=== PATIENT | male | born 1935 | race Caucasian/White ===

== ENCOUNTER → 2017-05-27 | Outpatient (CLI) | payer MEDICARE ==
--- NOTE | 2017-05-27 14:05 | CT ---
EXAMINATION TYPE: CT brain wo con DATE OF EXAM: 05/27/2017 COMPARISON: 10/18/2015 HISTORY: Epilepsy. CT DLP: [address] of the brain was performed. Motion limits portions of the bifrontal evaluation. The ventricles, basal cisterns and sulci overlying the cerebral convexities demonstrate mild enlargem ent. There is no evidence for intracranial hemorrhage or sulcal effacement. There is decreased attenuation about the periventricular white matter and deep white matter of both c erebral hemispheres, compatible with chronic small vessel ischemia. Differential diagnosis does inclu de demyelination. No mass effects are seen.No midline shift. Osseous calvarium is intact. If symptoms persist consider MRI. IMPRESSION: 1. Age related atrophic and chronic small vessel ischemic change without acute intracranial process s een at this time.
== END | disposition home or self-care (01) ==
LOC: RADCTMAIN 13:34
PROVIDERS: ATTEND Psychiatry & Neurology Neurology
DX: G31.1 Senile degeneration of brain, not elsewhere classified (principal); I67.82 Cerebral ischemia; G40.309 Generalized idiopathic epilepsy and epileptic syndromes, not intractable, without status epilepticus
CPT/HCPCS: 70450

== ENCOUNTER → 2017-08-07 | Outpatient (CLI) | payer MEDICARE | END | disposition home or self-care (01) | LOC: LABWHC1 08:25 | PROVIDERS: ATTEND Psychiatry & Neurology Neurology | DX: G40.309 Generalized idiopathic epilepsy and epileptic syndromes, not intractable, without status epilepticus (principal) | CPT/HCPCS: 36415; 80177; 80184; 80185 ==

== ENCOUNTER 2018-05-20 09:36 | Inpatient (IN) | payer MEDICARE ==
--- NOTE | 2018-05-20 10:42 | ED ---
Male Urogenital HPI <Louis Saavedra - Last Filed: 05/20/18 15:45> - General Source: patient Mode of arrival: wheelchair Limitations: language barrier, physical limitation <Janet Haile - Last Filed: 05/20/18 22:18> - General Chief complaint: Urogenital Stated complaint: blood in urine Time Seen by Provider: 05/20/18 10:02 - History of Present Illness Initial comments: 82-year-old male with past medical history of dementia, developmental delays, hearing disorder, seizure disorder presenting today from assisted living residence [facility] with physical therapy assistant instructor for hematuria. Violin Tutor noticed dark red blood in urine with clots and brought patient for evaluation, pt is hard of hearing and has dementia so care takers say that getting information from him is very limits. He did state that he was no in pain. Unable to obtain further history, caretakers deny any other complaints or noticing other abnormalities until this morning. Upon arrival pt VS are stable, no signs of acute distress. Pt in wheel chair, pt baseline ambulation is not able to weight bear. (Janet Haile) - Related Data Home Medications Medication Instructions Recorded Confirmed Acetaminophen Tab [Tylenol] 500 mg PO TID@0800,1400,2000 07/23/14 05/20/18 Cholecalciferol [Vitamin D3] 1,000 unit PO DAILY@0800 07/23/14 05/20/18 Ferrous Sulfate [Iron (65 MG 325 mg PO DAILY@0800 07/23/14 05/20/18 Elemental)] Furosemide [Lasix] 20 mg PO DAILY@0800 07/23/14 05/20/18 Cyanocobalamin [Vitamin B-12] 250 mcg PO DAILY@0800 10/18/15 05/20/18 Hyoscyamine Sulfate [Levsin-Sl] 0.125 mg PO DAILY@0800 10/18/15 05/20/18 Levothyroxine Sodium [Synthroid] 50 mcg PO DAILY@0800 10/18/15 05/20/18 Acetaminophen [Tylenol] 500 - 1,000 mg PO Q6H PRN 05/01/17 05/20/18 Albuterol Inhaler [Ventolin Hfa 2 puff INHALATION Q4-6H PRN 05/01/17 05/20/18 Inhaler] Amiodarone HCl [Pacerone] 200 mg PO DAILY@0800 05/01/17 05/20/18 Artificial Tears-Hypromellose 1 drops BOTH EYES TID PRN 05/01/17 05/20/18 [Artificial Tear Drops] Docusate [Colace] 100 mg PO DAILY@0800 05/01/17 05/20/18 Donepezil HCl [Aricept] 5 mg PO DAILY@0800 05/01/17 05/20/18 Famotidine 40 mg PO DAILY@0805/01/17 05/20/18 PHENobarbital [Luminal] 48.6 mg PO DAILY@0805/01/17 05/20/18 Potassium Chloride ER [K-Dur 10] 10 mg PO DAILY@0805/01/17 05/20/18 clonazePAM [KlonoPIN] 0.5 mg PO HS@199905/01/17 05/20/18 Atorvastatin [Lipitor] 40 mg PO HS 05/20/18 05/20/18 Loperamide [Imodium] 2 mg PO QID PRN 05/20/18 05/20/18 Magnesium Hydroxide [Milk of 2,400 mg PO BID PRN 05/20/18 05/20/18 Magnesia] Multivitamins, Thera [Multivitamin 1 tab PO DAILY 05/20/18 05/20/18 (formulary)] Oyster Calcium 1 tab PO DAILY 05/20/18 05/20/18 Phenytoin Sodium Extended 100 mg PO BID 05/20/18 05/20/18 [Dilantin] Warfarin Sodium [Coumadin] 4 mg PO DAILY 05/20/18 05/20/18 diphenhydrAMINE [Benadryl] 25 mg PO DAILY PRN 05/20/18 05/20/18 guaiFENesin [Mucinex] 600 mg PO BID PRN 05/20/18 05/20/18 guaiFENesin-DM 100-10MG/5ML 10 - 20 ml PO Q4H PRN 05/20/18 05/20/18 [Robitussin DM] levETIRAcetam [Keppra] 1,000 mg PO DAILY 05/20/18 05/20/18 levETIRAcetam [Keppra] 750 mg PO HS 05/20/18 05/20/18 Allergies Allergy/AdvReac Type Severity Reaction Status Date / Time Penicillins Allergy Unknown Verified 05/20/18 10:10 Review of Systems ROS Other: All systems not noted in ROS Statement are negative. <Louis Saavedra - Last Filed: 05/20/18 15:45> ROS Other: All systems not noted in ROS Statement are negative. Limitations: ROS unobtainable due to patients medical condition (pt is not able to hear/developmental delay/dementia) Genitourinary: Reports: hematuria <Janet Haile - Last Filed: 05/20/18 22:18> ROS Statement: Those systems with pertinent positive or pertinent negative responses have been documented in the HPI. Past Medical History Past Medical History: Atrial Fibrillation, Dementia, GERD/Reflux, Hyperlipidemia , Hypertension, Pneumonia, Seizure Disorder, Thyroid Disorder Additional Past Medical History / Comment(s): Hematoma on top of head, NISQUALLY, wears 2 hearing aides. C5-C6 and T12 fractures. Last seizure was 2 years ago. Hypothyroid. Falls. History of Any Multi-Drug Resistant Organisms: None Reported Past Surgical History: Unable to Obtain, Orthopedic Surgery Additional Past Surgical History / Comment(s): Surgery on BL arms. Right knee surgery. Past Psychological History: Unable to Obtain Smoking Status: Never smoker Past Alcohol Use History: None Reported Past Drug Use History: None Reported <Janet Haile - Last Filed: 05/20/18 22:18> General Exam <Louis Saavedra - Last Filed: 05/20/18 15:45> Limitations: language barrier, physical limitation <Janet Haile - Last Filed: 05/20/18 22:18> - General Exam Comments Initial Comments: General: The patient appears tired, pallor. AAOx2. Hard of hearing, verbal at times-family states baseline. Eye: Pupils are equal, round and reactive to light, extra-ocular movements are intact. No nystagmus. There is normal conjunctiva bilaterally. No signs of icterus. Ears, nose, mouth and throat: There are moist mucous membranes and no oral lesions. Neck: The neck is supple, there is no tenderness or JVD. Cardiovascular: There is a irregular rate and rhythm. No murmur, rub or gallop is appreciated. Respiratory: Lungs are clear to auscultation, respirations are non-labored, breath sounds are equal. No wheezes, stridor, rales, or rhonchi. Gastrointestinal: Soft, non-distended, abdomen without masses or organomegaly noted. Pt doesn't grimace in pain with palpation of the abdomen. There is no rebound or guarding present. No CVA tenderness. Bowel sounds are unremarkable. Musculoskeletal: Normal ROM, no tenderness. Strength 5/5 of UE, pt can grossly move lower extremities. Sensation intact. Pulses equal bilaterally 2+. Neurological: A&O x 3. CN II-XII intact, There are no obvious motor or sensory deficits. Coordination appears grossly intact. Speech is normal loud, pt doesnt consistently speak. Skin: Skin is warm and dry and no rashes or lesions are noted. (Janet Haile) Course <Louis Saavedra - Last Filed: 05/20/18 15:45> <Janet Haile - Last Filed: 05/20/18 22:18> Vital Signs 05/20/18 05/20/18 05/20/18 09:43 10:54 12:00 Temperature 97.5 F L Pulse Rate 89 110 H 112 H Respiratory 20 18 18 Rate Blood Pressure 109/47 134/83 139/91 O2 Sat by Pulse 97 96 98 Oximetry 05/20/18 05/20/18 05/20/18 14:00 16:59 18:20 Temperature 98.5 F Pulse Rate 105 H 101 H 104 H Respiratory 18 18 18 Rate Blood Pressure 105/86 102/85 O2 Sat by Pulse 92 L 99 97 Oximetry 05/20/18 05/20/18 05/20/18 18:23 18:33 19:03 Temperature 98.8 F 98.8 F 99.3 F Pulse Rate 100 101 H 102 H Respiratory 18 18 18 Rate Blood Pressure 116/69 109/87 119/67 O2 Sat by Pulse 94 L Oximetry - Reevaluation(s) Reevaluation #1: 05/20/18 15:45 Patient reevaluated by myself, Dr. Saavedra. Patient resting comfortably in bed. Patient is a poor historian. Case was discussed in detail with Dr. Kathleen from neurology who states patient can be admitted medically for possible urinary infection and will consult. Case also discussed in detail with Dr. Carrington, who will admit for Dr. Maxwell. He recommends vitamin K 10 units IV piggyback as well as 2 units fresh frozen plasma. (Louis Saavedra) Reevaluation #2: EKG obtained, revealing atrial fibrillation HR varying from 118-100, bolus pt, hold cardizem at this time per Dr. Louis Saavedra 05/20/18 (Janet Haile) Medical Decision Making - Lab Data Result diagrams: 05/20/18 11:56 05/20/18 11:56 <Louis Saavedra - Last Filed: 05/20/18 15:45> - Lab Data Result diagrams: 05/20/18 19:18 05/20/18 11:56 <Janet Haile - Last Filed: 05/20/18 22:18> - Medical Decision Making 82-year-old male with past medical history of atrial fibrillation on warfarin. Upon review of laboratory findings, white blood cell 20, hemoglobin 12.3, patient has elevated PT, PTT and INR at 5.0. Patient does have history of atrial fibrillation, EKG was obtained revealing atrial fibrillation with ventricular rate of 105 bpm. Patient is hemodynamically stable, EKG findings were discussed with Dr. Saavedra at this time will hold Cardizem and monitor heart rate closely, patient is placed on telemetry. Patient be given bolus of fluids. UA revealed gross hematuria. Checks x-ray revealed findings concerning for possible pulmonary venous hypertension/interstitial edema. CT of the abdomen and pelvis revealed a heterogeneous multilobulated large intratesticular mass that extends from enlarged urinary bladder diverticulum into the need of urinary bladder, this is concerning for neoplasm. Dr. Kathleen from urology was consult at who recommended medicine admission for UTI given WBC count, coagulopathies and hematuria with him on consult, pt started on levaquin for UTI, PCN allergy within unknown reaction. Dr. Carrington spoke with Dr. Saavedra (who is aware of case and evalated pt face to face) Zeb accepted admission for patient's primary care provider, he requested patient be given 10 mg of vitamin K, and 2 units of fresh frozen plasma. Pt remains hemodynamically stable. He does deny pain upon reevaluation when writing notes. He does not consistently respond to written notes. Dilantin levels drawn. At this time feel patient's heart rate is elevated from atrial fibrillation, patient is afebrile, respirations within normal limits-pt does not meet sepsis criteria at this time. I discussed all findings with patient's sister at length, they denied questions at this time and agreeable with admission. Family expressed that pt is DNR. Pt transferred to floor, hemodynamically stable. (Janet Haile) - Lab Data Lab Results 05/20/18 05/20/18 05/20/18 Range/Units 11:54 11:56 11:56 WBC 20.0 H (3.8-10.6) k/uL RBC 3.89 L (4.30-5.90) m/uL Hgb 12.3 L (13.0-17.5) gm/dL Hct 39.2 (39.0-53.0) % MCV 100.7 H (80.0-100.0) fL MCH 31.7 (25.0-35.0) pg MCHC 31.5 (31.0-37.0) g/dL RDW 13.5 (11.5-15.5) % Plt Count 342 (150-450) k/uL Neutrophils % 84 % Lymphocytes % 8 % Monocytes % 6 % Eosinophils % 1 % Basophils % 0 % Neutrophils # 16.8 H (1.3-7.7) k/uL Lymphocytes # 1.6 (1.0-4.8) k/uL Monocytes # 1.2 H (0-1.0) k/uL Eosinophils # 0.1 (0-0.7) k/uL Basophils # 0.0 (0-0.2) k/uL Macrocytosis Slight PT (9.0-12.0) sec INR (<1.2) APTT (22.0-30.0) sec Sodium 142 (137-145) mmol/L Potassium 4.4 (3.5-5.1) mmol/L Chloride 106 (98-107) mmol/L Carbon Dioxide 24 (22-30) mmol/L Anion Gap 12 mmol/L BUN 13 (9-20) mg/dL Creatinine 0.72 (0.66-1.25) mg/dL Est GFR (CKD-EPI)AfAm >90 (>60 ml/min/1.73 sqM) Est GFR (CKD-EPI)NonAf 87 (>60 ml/min/1.73 sqM) Glucose 131 H (74-99) mg/dL Lactic Ac Sepsis Rflx Plasma Lactic Acid Bartolome (0.7-2.0) mmol/L Calcium 9.0 (8.4-10.2) mg/dL Total Bilirubin 0.4 (0.2-1.3) mg/dL AST 36 (17-59) U/L ALT 30 (21-72) U/L Alkaline Phosphatase 74 (38-126) U/L Total Protein 7.3 (6.3-8.2) g/dL Albumin 4.2 (3.5-5.0) g/dL Urine Color Urine Appearance (Clear) Urine RBC (0-5) /hpf Urine WBC (0-5) /hpf Phenytoin ug/mL Blood Type O Positive Blood Type Recheck No Antibody Screen NEGATIVE Transfuse Plasma Spec Expiration Date 05/23/2018235305/20/18 05/20/18 05/20/18 Range/Units 11:56 14:42 14:49 WBC (3.8-10.6) k/uL RBC (4.30-5.90) m/uL Hgb (13.0-17.5) gm/dL Hct (39.0-53.0) % MCV (80.0-100.0) fL MCH (25.0-35.0) pg MCHC (31.0-37.0) g/dL RDW (11.5-15.5) % Plt Count (150-450) k/uL Neutrophils % % Lymphocytes % % Monocytes % % Eosinophils % % Basophils % % Neutrophils # (1.3-7.7) k/uL Lymphocytes # (1.0-4.8) k/uL Monocytes # (0-1.0) k/uL Eosinophils # (0-0.7) k/uL Basophils # (0-0.2) k/uL Macrocytosis PT 45.0 H (9.0-12.0) sec INR 5.0 H (<1.2) APTT 41.3 H (22.0-30.0) sec Sodium (137-145) mmol/L Potassium (3.5-5.1) mmol/L Chloride (98-107) mmol/L Carbon Dioxide (22-30) mmol/L Anion Gap mmol/L BUN (9-20) mg/dL Creatinine (0.66-1.25) mg/dL Est GFR (CKD-EPI)AfAm (>60 ml/min/1.73 sqM) Est GFR (CKD-EPI)NonAf (>60 ml/min/1.73 sqM) Glucose (74-99) mg/dL Lactic Ac Sepsis Rflx Plasma Lactic Acid Bartolome 3.8 H* (0.7-2.0) mmol/L Calcium (8.4-10.2) mg/dL Total Bilirubin (0.2-1.3) mg/dL AST (17-59) U/L ALT (21-72) U/L Alkaline Phosphatase (38-126) U/L Total Protein (6.3-8.2) g/dL Albumin (3.5-5.0) g/dL Urine Color Red Urine Appearance Bloody (Clear) Urine RBC >182 H (0-5) /hpf Urine WBC >182 H (0-5) /hpf Phenytoin ug/mL Blood Type Blood Type Recheck Antibody Screen Transfuse Plasma Spec Expiration Date 05/20/18 05/20/18 05/20/18 Range/Units 16:04 16:41 16:53 WBC (3.8-10.6) k/uL RBC (4.30-5.90) m/uL Hgb (13.0-17.5) gm/dL Hct (39.0-53.0) % MCV (80.0-100.0) fL MCH (25.0-35.0) pg MCHC (31.0-37.0) g/dL RDW (11.5-15.5) % Plt Count (150-450) k/uL Neutrophils % % Lymphocytes % % Monocytes % % Eosinophils % % Basophils % % Neutrophils # (1.3-7.7) k/uL Lymphocytes # (1.0-4.8) k/uL Monocytes # (0-1.0) k/uL Eosinophils # (0-0.7) k/uL Basophils # (0-0.2) k/uL Macrocytosis PT (9.0-12.0) sec INR (<1.2) APTT (22.0-30.0) sec Sodium (137-145) mmol/L Potassium (3.5-5.1) mmol/L Chloride (98-107) mmol/L Carbon Dioxide (22-30) mmol/L Anion Gap mmol/L BUN (9-20) mg/dL Creatinine (0.66-1.25) mg/dL Est GFR (CKD-EPI)AfAm (>60 ml/min/1.73 sqM) Est GFR (CKD-EPI)NonAf (>60 ml/min/1.73 sqM) Glucose (74-99) mg/dL Lactic Ac Sepsis Rflx Y Plasma Lactic Acid Bartolome (0.7-2.0) mmol/L Calcium (8.4-10.2) mg/dL Total Bilirubin (0.2-1.3) mg/dL AST (17-59) U/L ALT (21-72) U/L Alkaline Phosphatase (38-126) U/L Total Protein (6.3-8.2) g/dL Albumin (3.5-5.0) g/dL Urine Color Urine Appearance (Clear) Urine RBC (0-5) /hpf Urine WBC (0-5) /hpf Phenytoin <3.0 ug/mL Blood Type Blood Type Recheck Antibody Screen Transfuse Plasma 05/20/18 Spec Expiration Date Disposition <Louis Saavedra - Last Filed: 05/20/18 15:45> Is patient prescribed a controlled substance at d/c from ED?: No Time of Disposition: 18:03 Decision to Admit Reason: Admit from EC Decision Date: 05/20/18 Decision Time: 18:03 <Janet Haile - Last Filed: 05/20/18 22:18> Clinical Impression: Hematuria, Coagulopathy, Atrial fibrillation, Mass of urinary bladder, UTI ( urinary tract infection) Disposition: ADMITTED IP TO THIS HOSP Condition: Stable
[2018-05-20] MEDS ORDERED: SODIUM CHLORIDE 0.9% 500 ML 500 ML IV ONE (10:43)
[2018-05-20 12:23] LABS: Basophils % (A) 0 %; Eosinophils # (A) 0.1 k/uL (0-0.7); Eosinophils % (A) 1 %; HCT 39.2 % (39.0-53.0); HGB 12.3 gm/dL (13.0-17.5); Lymphocytes # (A) 1.6 k/uL (1.0-4.8); Lymphocytes % (A) 8 %; MCH 31.7 pg (25.0-35.0); MCHC 31.5 g/dL (31.0-37.0); MCV 100.7 fL (80.0-100.0); Macrocytosis Slight; Mean Platelet Volume 6.6; Monocytes # (A) 1.2 k/uL (0-1.0); Monocytes % (A) 6 %; Neutrophils # (A) 16.8 k/uL (1.3-7.7); Neutrophils % (A) 84 %; Platelet Count 342 k/uL (150-450); RBC 3.89 m/uL (4.30-5.90); RDW 13.5 % (11.5-15.5)
[2018-05-20 12:37] LABS: ALT 30 U/L (21-72); AST 36 U/L (17-59); Albumin 4.2 g/dL (3.5-5.0); Alkaline Phosphatase 74 U/L (38-126); Anion Gap 12 mmol/L; Blood Urea Nitrogen 13 mg/dL (9-20); Carbon Dioxide 24 mmol/L (22-30); Chloride 106 mmol/L (98-107); Glucose 131 mg/dL (74-99); Potassium 4.4 mmol/L (3.5-5.1); Sodium 142 mmol/L (137-145); Total Bilirubin 0.4 mg/dL (0.2-1.3); Total Protein 7.3 g/dL (6.3-8.2)
[2018-05-20 13:21] LABS: Partial Thromboplastin Time 41.3 sec (22.0-30.0)
--- NOTE | 2018-05-20 13:28 | CT ---
EXAMINATION TYPE: CT abdomen pelvis w con DATE OF EXAM: 05/20/2018 COMPARISON: None HISTORY: Hematuria CT DLP: 1194.6 mGycm Automated exposure control for dose reduction was used. TECHNIQUE: Helical acquisition of images was performed from the lung bases through the pelvis. CONTRAST: Performed without Oral Contrast and with IV Contrast, patient injected with 100 mL of Isovue 300. FINDINGS: LUNG BASES: Reticular nodular opacities are seen of the lung bases. Protocol retroareolar right-sided gynecomastia is partially visualized. LIVER/GB: No significant abnormality is appreciated. PANCREAS: Mild pancreatic probable atrophy is noted. No ductal dilatation is seen. SPLEEN: No significant abnormality is seen. ADRENALS: No significant abnormality is seen. KIDNEYS: There is moderate bilateral hydroureteronephrosis likely secondary to obstruction from the b lood products and/or are noted bladder mass. FREE AIR: No free air is visualized. URINARY BLADDER: There is a rounded 0.8 x 4.6 cm urinary bladder mass within a large wide necked sup erior urinary bladder diverticulum. There is trabeculation of the urinary bladder wall the right late ral aspect such as on axial image 66. Soft tissue density is also seen dependently within the urinary bladder such as on image 65 and there is a layering hemorrhage along the dependent aspect of the uri nary bladder. Additionally there is circumferentially thickened urinary bladder wall thickening seen more superiorly. PELVIC ADENOPATHY: Superficial inguinal lymph node on the left has a fatty hilum but is mildly enlar ged measuring 1.2 cm in short axis. OSSEOUS STRUCTURES: Punctate sclerotic focus of the right ilium is seen on image 67. Degenerative ch anges of the femoral acetabular joints and spine are noted as well as of the sacroiliac joints. Schmo rl's node is noted of the superior endplate of T12. BOWEL: Few sigmoid colonic diverticula are present without pericolonic fat stranding. No dilated lar ge or small bowel is seen. OTHER: There is a small fat filled periumbilical hernia. Moderate atherosclerosis of the abdominal ao rta and its branches are noted. Nonspecific presacral fat stranding is seen and may relate to edema. IMPRESSION: HETEROGENOUS MULTILOBULATED LARGE INTRAVESTICULAR MASS THAT EXTENDS FROM ENLARGED URINARY BLADDER DIV ERTICULUM INTO THE [place] URINARY BLADDER. THIS SHOULD BE CONSIDERED NEOPLASM UNTIL PROVEN OTHERWISE AND DIRECT VISUALIZATION WITH BIOPSY IS RECOMMENDED. ADDITIONALLY THERE IS LAYERING HEMORRHAGIC BLOOD PRODUCTS WITHIN THE URINARY BLADDER.
--- NOTE | 2018-05-20 13:35 | XR ---
EXAMINATION TYPE: XR KUB portable DATE OF EXAM: 05/20/2018 12:19 PM CLINICAL HISTORY: Gross hematuria TECHNIQUE: Single supine KUB image of the abdomen is obtained. COMPARISON: None. FINDINGS: Scattered gas is seen in non-distended small bowel loops. Gas and fecal material is seen in non-distended colon. Soft tissue density is seen over the urinary bladder extending to the right cliftno ac bone. The lung bases are clear and the osseous structures are intact. IMPRESSION: Soft tissue density overlying the region of the urinary bladder for which further charact erization with CT would be recommended.
[2018-05-20 15:15] LABS: RBC,Urine >182 /hpf (0-5); WBC,Urine >182 /hpf (0-5)
[2018-05-20 15:18] LABS: Appearance,Urine Bloody (Clear); Color,Urine Red
--- NOTE | 2018-05-20 15:48 | XR ---
EXAMINATION TYPE: XR chest 2V DATE OF EXAM: 05/20/2018 COMPARISON: Prior chest x-ray 05/06/2017 HISTORY: Pain, hypertension TECHNIQUE: Frontal and lateral views of the chest are obtained. FINDINGS: The heart remains enlarged. Interstitium and central vascularity are prominent. Patient is rotated. No evident pneumothorax or pleural effusion. There are overlying cardiac leads. Contrast pr esent within the renal collecting systems. Bone mineralization is reduced. Aorta is dense. IMPRESSION: Appearance is improved compared to prior exam. Correlate for possible pulmonary venous hy pertension and interstitial edema. Rotated exam. Follow-up recommended.
[2018-05-20] MEDS ORDERED: NALOXONE 0.4 MG/ML 1 ML VIAL IV PRN (16:07)
[2018-05-20] MEDS ORDERED: SODIUM CHLORIDE 0.9% 500 ML 500 ML IV STA (16:11)
[2018-05-20] MEDS ORDERED: PHYTONADIONE 10 MG in SODIUM CHLORIDE 0.9% 50 ML IVPB STA (16:11)
[2018-05-20] MEDS ORDERED: LEVOFLOXACIN 750MG-D5W PMX 750 MG in DEXTROSE/WATER 1 150ML.BAG IVPB STA (16:13)
[2018-05-20] MEDS: SODIUM CHLORIDE 0.9% 1,000 ML IV SCH (17:08)
[2018-05-20 19:55] LABS: Basophils # (A) 0.1 k/uL (0-0.2); Basophils % (A) 0 %; Eosinophils # (A) 0.1 k/uL (0-0.7); Eosinophils % (A) 0 %; HGB 10.4 gm/dL (13.0-17.5); Hypochromasia Moderate; Lymphocytes % (A) 11 %; MCH 32.4 pg (25.0-35.0); MCHC 30.7 g/dL (31.0-37.0); MCV 105.4 fL (80.0-100.0); Macrocytosis Moderate; Mean Platelet Volume 6.7; Monocytes # (A) 1.6 k/uL (0-1.0); Monocytes % (A) 9 %; Neutrophils # (A) 14.4 k/uL (1.3-7.7); Neutrophils % (A) 78 %; Platelet Count 321 k/uL (150-450); RBC 3.23 m/uL (4.30-5.90); RDW 13.6 % (11.5-15.5); WBC 18.4 k/uL (3.8-10.6)
[2018-05-20] MEDS ORDERED: LOPERAMIDE 2 MG CAP PO PRN (22:33)
[2018-05-20] MEDS ORDERED: ARTIFICIAL TEARS-HYPROMELLOSE DROPS 15 ML BTL BOTH EYES PRN (22:33)
[2018-05-20] MEDS ORDERED: MAGNESIUM HYDROXIDE 2,400 MG/10 ML CUP PO PRN (22:33)
[2018-05-20] MEDS ORDERED: guaiFENesin 600 MG TABLET.ER PO PRN (22:33)
[2018-05-20] MEDS ORDERED: ACETAMINOPHEN TAB 500 MG TAB ONE (23:41)
[2018-05-20] MEDS: clonazePAM 0.5 MG TAB PO SCH (23:42)
[2018-05-20] MEDS: ACETAMINOPHEN TAB 500 MG TAB PO SCH (23:42)
[2018-05-20] MEDS: PHENYTOIN SODIUM EXTENDED 100 MG CAP PO SCH (23:42)
[2018-05-21 01:53] LABS: HCT 26.8 % (39.0-53.0); MCH 32.3 pg (25.0-35.0); MCHC 32.7 g/dL (31.0-37.0); Mean Platelet Volume 6.8; Platelet Count 249 k/uL (150-450); RBC 2.72 m/uL (4.30-5.90); RDW 13.6 % (11.5-15.5); WBC 13.6 k/uL (3.8-10.6)
[2018-05-21 02:04] LABS: HGB 8.8 gm/dL (13.0-17.5); MCV 98.5 fL (80.0-100.0)
--- NOTE | 2018-05-21 06:23 | HP ---
HISTORY AND PHYSICAL DATE OF ADMISSION: 05/20/2018 DATE OF SERVICE: 05/20/2018 PRESENTING COMPLAINT: Hematuria. HISTORY OF PRESENTING COMPLAINT: This is an 82-year-old patient who follows with Visiting Physician, Dr. Chua. Chronic stable medical conditions include developmental delay with dementia, very hard of hearing, seizures, hypothyroid, atrial fibrillation, congestive heart failure. The patient is on Coumadin for the same. The patient is a resident of [facility]. The patient was noticed to have significant amount of blood clots and hematuria. The patient himself really cannot tell much; hence, he was brought into the ER. The ER physician called me that patient's INR was elevated at 5. Given the active bleeding I told him to give the patient 10 mg of Vitamin K and 2 units of fresh frozen plasma. The patient did get a CT scan of the abdomen and pelvis that showed the right showed a large intravesical mass. Urology was consulted from the ER. The patient himself is barely able to give me any history because of very hard of hearing, though he appears to be comfortable. REVIEW OF SYSTEMS: Really cannot obtain because patient is very hard of hearing. PAST MEDICAL HISTORY: Atrial fibrillation, dementia, GERD, hyperlipidemia, hypertension, seizure disorder, hypothyroid, very hard of hearing as 2 hearing aids, C5-C6 and T12 fractures. PAST SURGICAL HISTORY: Surgery on bilateral arms and right knee surgery. SOCIAL HISTORY: No smoking. No alcohol. Resident of [facility]. FAMILY HISTORY: Patient cannot tell. HOME MEDICATIONS: 1. Keppra 750 mg at night, 1000 mg in the morning. 2. Robitussin DM 10 to 20 mL q.4 p.r.n. 3. Mucinex 600 mg b.i.d. p.r.n. 4. Benadryl 25 mg p.o. daily p.r.n. 5. Klonopin 0.5 mg p.o. q.h.s. 6. Coumadin 4 mg p.o. daily. 7. Potassium 10 p.o. daily. 8. Dilantin 100 mg b.i.d. 9. Luminal 48.6 mg p.o. daily. 10.Oyster calcium 1 tablet p.o. daily. 11.Multivitamin 1 tablet p.o. daily. 12.Milk of Magnesia 2400 mg p.o. b.i.d. p.r.n. 13.Imodium 2 mg p.o. q.i.d. p.r.n. 14.Synthroid 50 mcg p.o. daily. 15.Levsin sublingual 0.125 mg p.o. daily. 16.Lasix 20 mg p.o. daily. 17.Iron 325 p.o. daily. 18.Pepcid 40 mg p.o. daily. 19.Aricept 5 mg p.o. daily. 20.Colace. 21.Vitamin B12, 250 mcg p.o. daily. 22.Vitamin D3, 1000 units p.o. daily. 23.Lipitor 40 mg q.h.s. 24.Artificial Tears 1 drop to both eyes t.i.d. p.r.n. 25.Amiodarone 200 mg p.o. daily. 26.Ventolin HFA 2 puffs q.4 to 6 p.r.n. 27.Tylenol 500 mg p.o. t.i.d. and p.r.n. ALLERGIES: PENICILLIN, type unknown. PHYSICAL EXAMINATION: On examination, vital signs on presentation: Temperature 97.5, pulse 110, respiration 18, blood pressure 134/83, pulse ox 96% on 2 L. GENERAL APPEARANCE: Average build, lying in bed. EYES: Pupils equal. Conjunctiva normal. HENT: External appearance of nose and ears normal. Oral cavity normal. Very hard of hearing. NECK: JVD unable to assess. Mass not palpable. RESPIRATORY: Effort normal. LUNGS: Slightly decreased breath sounds. CARDIOVASCULAR: Heart sounds irregular. No edema. ABDOMEN: Soft, nontender. Liver and spleen not palpable. LYMPHATIC: No lymph node palpable in neck and axillae. PSYCHIATRY: Unable to assess because patient follow commands. NEUROLOGICAL: Patient is moving all 4 limbs. GENITOURINARY: Patient has got a catheter with blood in the urinary bag. INVESTIGATIONS: White count 20, hemoglobin 12.3. INR was 5. Potassium 4.4. CT scan of the abdomen and pelvis shows moderate bilateral hydroureteronephrosis and there is urinary bladder mass with some hemorrhage in there. ASSESSMENT: 1. Acute severe hematuria, a combination of patient having a urinary bladder mass, likely malignant in the setting of patient having Coumadin toxicity. 2. Acute Coumadin toxicity causing hematuria from bladder mass. 3. 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 4. Developmental delay. 5. Very hard of hearing. 6. Chronic seizure disorder. 7. Hypothyroidism. 8. Chronic congestive heart failure, ejection fraction not known. 9. History of atrial fibrillation. PLAN: Vitamin K 10 mg and fresh frozen plasma given in the ER. Recheck INR in the morning. Urology was consulted for the bladder mass. Currently no family is present. Patient's code status is DNR. No family is present, will talk to the family tomorrow. Prognosis not good. MMODL / IJN: [id number] /
[2018-05-21 06:57] LABS: Basophils % (A) 0 %; Eosinophils # (A) 0.2 k/uL (0-0.7); Eosinophils % (A) 2 %; HCT 26.3 % (39.0-53.0); HGB 8.3 gm/dL (13.0-17.5); Lymphocytes # (A) 1.9 k/uL (1.0-4.8); Lymphocytes % (A) 19 %; MCHC 31.5 g/dL (31.0-37.0); MCV 101.4 fL (80.0-100.0); Macrocytosis Slight; Mean Platelet Volume 6.6; Monocytes % (A) 10 %; Neutrophils # (A) 6.7 k/uL (1.3-7.7); Neutrophils % (A) 67 %; Platelet Count 226 k/uL (150-450); RDW 13.8 % (11.5-15.5)
[2018-05-21] MEDS: SODIUM CHLORIDE 0.9% 1,000 ML IV SCH ×2 (07:05→22:11)
[2018-05-21 07:10] LABS: INR 1.3 (<1.2); Prothrombin Time 12.6 sec (9.0-12.0)
--- NOTE | 2018-05-21 07:36 | P.GSCN ---
History of Present Illness Consult date: 05/21/18 History of present illness: This is an 82-year-old gentleman, mentally handicapped from assisted living who comes in for gross hematuria. The patient can really give no history. This is a new finding. His urine is quite inflamed consistent with a urine infection. He had a computed tomography scan of the abdomen identifying a bladder diverticula and a large filling defect in the bladder probably blood clot possibly neoplasm. He had an elevated white count of 20,000. He is admitted for IV antibiotics and urologic consultation. The patient can give no history. Afternoon evening of antibiotics his white blood cell count has come down to 10,000. His hemoglobin is 8.3 Review of Systems ROS unobtainable: due to mental status Past Medical History Past Medical History: Atrial Fibrillation, Dementia, GERD/Reflux, Hyperlipidemia , Hypertension, Pneumonia, Seizure Disorder, Thyroid Disorder Additional Past Medical History / Comment(s): Hematoma on top of head, [place], wears 2 hearing aides. C5-C6 and T12 fractures. Last seizure was 2 years ago. Hypothyroid. Falls. History of Any Multi-Drug Resistant Organisms: None Reported Past Surgical History: Unable to Obtain, Orthopedic Surgery Additional Past Surgical History / Comment(s): Surgery on BL arms. Right knee surgery. Past Anesthesia/Blood Transfusion Reactions: Unable to Obtain Past Psychological History: Unable to Obtain Smoking Status: Never smoker Past Alcohol Use History: None Reported Past Drug Use History: None Reported - Past Family History Father Family Medical History: Unable to Obtain Mother Family Medical History: Unable to Obtain Medications and Allergies Home Medications Medication Instructions Recorded Confirmed Type Acetaminophen Tab [Tylenol] 500 mg PO TID@0800,1400,2000 07/23/14 05/20/18 History Cholecalciferol [Vitamin D3] 1,000 unit PO DAILY@0800 07/23/14 05/20/18 History Ferrous Sulfate [Iron (65 MG 325 mg PO DAILY@0800 07/23/14 05/20/18 History Elemental)] Furosemide [Lasix] 20 mg PO DAILY@0800 07/23/14 05/20/18 History Cyanocobalamin [Vitamin B-12] 250 mcg PO DAILY@0800 10/18/15 05/20/18 History Hyoscyamine Sulfate [Levsin-Sl] 0.125 mg PO DAILY@0800 10/18/15 05/20/18 History Levothyroxine Sodium [Synthroid] 50 mcg PO DAILY@0800 10/18/15 05/20/18 History Acetaminophen [Tylenol] 500 - 1,000 mg PO Q6H PRN 05/01/17 05/20/18 History Albuterol Inhaler [Ventolin Hfa 2 puff INHALATION Q4-6H PRN 05/01/17 05/20/18 History Inhaler] Amiodarone HCl [Pacerone] 200 mg PO DAILY@0800 05/01/17 05/20/18 History Artificial Tears-Hypromellose 1 drops BOTH EYES TID PRN 05/01/17 05/20/18 History [Artificial Tear Drops] Docusate [Colace] 100 mg PO DAILY@0800 05/01/17 05/20/18 History Donepezil HCl [Aricept] 5 mg PO DAILY@0800 05/01/17 05/20/18 History Famotidine 40 mg PO DAILY@0800 05/01/17 05/20/18 History PHENobarbital [Luminal] 48.6 mg PO DAILY@0800 05/01/17 05/20/18 History Potassium Chloride ER [K-Dur 10] 10 mg PO DAILY@0800 05/01/17 05/20/18 History clonazePAM [KlonoPIN] 0.5 mg PO HS@199905/01/17 05/20/18 History Atorvastatin [Lipitor] 40 mg PO HS 05/20/18 05/20/18 History Loperamide [Imodium] 2 mg PO QID PRN 05/20/18 05/20/18 History Magnesium Hydroxide [Milk of 2,400 mg PO BID PRN 05/20/18 05/20/18 History Magnesia] Multivitamins, Thera [Multivitamin 1 tab PO DAILY 05/20/18 05/20/18 History (formulary)] Oyster Calcium 1 tab PO DAILY 05/20/18 05/20/18 History Phenytoin Sodium Extended 100 mg PO BID 05/20/18 05/20/18 History [Dilantin] Warfarin Sodium [Coumadin] 4 mg PO DAILY 05/20/18 05/20/18 History diphenhydrAMINE [Benadryl] 25 mg PO DAILY PRN 05/20/18 05/20/18 History guaiFENesin [Mucinex] 600 mg PO BID PRN 05/20/18 05/20/18 History guaiFENesin-DM 100-10MG/5ML 10 - 20 ml PO Q4H PRN 05/20/18 05/20/18 History [Robitussin DM] levETIRAcetam [Keppra] 1,000 mg PO DAILY 05/20/18 05/20/18 History levETIRAcetam [Keppra] 750 mg PO HS 05/20/18 05/20/18 History Allergies Allergy/AdvReac Type Severity Reaction Status Date / Time Penicillins Allergy Unknown Verified 05/20/18 10:10 Surgical - Exam Vital Signs Temp Pulse Resp BP Pulse Ox 97.5 F L 89 20 109/47 97 05/20/18 09:43 05/20/18 09:43 05/20/18 09:43 05/20/18 09:43 05/20/18 09:43 - General well developed, well nourished - Eyes PERRL - ENT decreased hearing - Neck trachea midline - Respiratory normal expansion, normal respiratory effort - Cardiovascular Rhythm: regular - Abdomen Abdomen: soft, non tender - Genitourinary Indwelling catheter with old bloody urine normal penis with no external lesions, testicles present - Neurologic disoriented Results - Labs 05/21/18 06:13 05/20/18 11:56 Abnormal Lab Results - Last 24 Hours (Table) 05/20/18 05/20/18 05/20/18 Range/Units 11:56 11:56 11:56 WBC 20.0 H (3.8-10.6) k/uL RBC 3.89 L (4.30-5.90) m/uL Hgb 12.3 L (13.0-17.5) gm/dL Hct (39.0-53.0) % MCV 100.7 H (80.0-100.0) fL MCHC (31.0-37.0) g/dL Neutrophils # 16.8 H (1.3-7.7) k/uL Monocytes # 1.2 H (0-1.0) k/uL PT 45.0 H (9.0-12.0) sec INR 5.0 H (<1.2) APTT 41.3 H (22.0-30.0) sec Glucose 131 H (74-99) mg/dL Plasma Lactic Acid Bartolome (0.7-2.0) mmol/L Urine RBC (0-5) /hpf Urine WBC (0-5) /hpf 05/20/18 05/20/18 05/20/18 Range/Units 14:42 14:49 19:18 WBC 18.4 H (3.8-10.6) k/uL RBC 3.23 L (4.30-5.90) m/uL Hgb 10.4 L (13.0-17.5) gm/dL Hct 34.0 L (39.0-53.0) % MCV 105.4 H (80.0-100.0) fL MCHC 30.7 L (31.0-37.0) g/dL Neutrophils # 14.4 H (1.3-7.7) k/uL Monocytes # 1.6 H (0-1.0) k/uL PT (9.0-12.0) sec INR (<1.2) APTT (22.0-30.0) sec Glucose (74-99) mg/dL Plasma Lactic Acid Bartolome 3.8 H* (0.7-2.0) mmol/L Urine RBC >182 H (0-5) /hpf Urine WBC >182 H (0-5) /hpf 05/20/18 05/21/18 05/21/18 Range/Units 19:18 01:40 06:13 WBC 13.6 H (3.8-10.6) k/uL RBC 2.72 L 2.60 L (4.30-5.90) m/uL Hgb 8.8 L D 8.3 L (13.0-17.5) gm/dL Hct 26.8 L 26.3 L (39.0-53.0) % MCV 101.4 H (80.0-100.0) fL MCHC (31.0-37.0) g/dL Neutrophils # (1.3-7.7) k/uL Monocytes # (0-1.0) k/uL PT (9.0-12.0) sec INR (<1.2) APTT (22.0-30.0) sec Glucose (74-99) mg/dL Plasma Lactic Acid Bartolome 2.7 H* (0.7-2.0) mmol/L Urine RBC (0-5) /hpf Urine WBC (0-5) /hpf 05/21/18 Range/Units 06:13 WBC (3.8-10.6) k/uL RBC (4.30-5.90) m/uL Hgb (13.0-17.5) gm/dL Hct (39.0-53.0) % MCV (80.0-100.0) fL MCHC (31.0-37.0) g/dL Neutrophils # (1.3-7.7) k/uL Monocytes # (0-1.0) k/uL PT 12.6 H (9.0-12.0) sec INR 1.3 H (<1.2) APTT (22.0-30.0) sec Glucose (74-99) mg/dL Plasma Lactic Acid Bartolome (0.7-2.0) mmol/L Urine RBC (0-5) /hpf Urine WBC (0-5) /hpf Microbiology - Last 24 Hours (Table) 05/20/18 16:00 Urine Culture - Preliminary Urine,Catheterized Diabetes panel 05/20/18 Range/Units 11:56 Sodium 142 (137-145) mmol/L Potassium 4.4 (3.5-5.1) mmol/L Chloride 106 (98-107) mmol/L Carbon Dioxide 24 (22-30) mmol/L BUN 13 (9-20) mg/dL Creatinine 0.72 (0.66-1.25) mg/dL Glucose 131 H (74-99) mg/dL Calcium 9.0 (8.4-10.2) mg/dL AST 36 (17-59) U/L ALT 30 (21-72) U/L Alkaline Phosphatase 74 (38-126) U/L Total Protein 7.3 (6.3-8.2) g/dL Albumin 4.2 (3.5-5.0) g/dL Calcium panel 05/20/18 Range/Units 11:56 Calcium 9.0 (8.4-10.2) mg/dL Albumin 4.2 (3.5-5.0) g/dL Pituitary panel 05/20/18 Range/Units 11:56 Sodium 142 (137-145) mmol/L Potassium 4.4 (3.5-5.1) mmol/L Chloride 106 (98-107) mmol/L Carbon Dioxide 24 (22-30) mmol/L BUN 13 (9-20) mg/dL Creatinine 0.72 (0.66-1.25) mg/dL Glucose 131 H (74-99) mg/dL Calcium 9.0 (8.4-10.2) mg/dL Adrenal panel 05/20/18 Range/Units 11:56 Sodium 142 (137-145) mmol/L Potassium 4.4 (3.5-5.1) mmol/L Chloride 106 (98-107) mmol/L Carbon Dioxide 24 (22-30) mmol/L BUN 13 (9-20) mg/dL Creatinine 0.72 (0.66-1.25) mg/dL Glucose 131 H (74-99) mg/dL Calcium 9.0 (8.4-10.2) mg/dL Total Bilirubin 0.4 (0.2-1.3) mg/dL AST 36 (17-59) U/L ALT 30 (21-72) U/L Alkaline Phosphatase 74 (38-126) U/L Total Protein 7.3 (6.3-8.2) g/dL Albumin 4.2 (3.5-5.0) g/dL - Imaging CT scan - abdomen: report reviewed, image reviewed CT scan - pelvis: report reviewed, image reviewed Assessment and Plan Assessment: Impression: Gross hematuria. Urinary tract infection with sepsis based on elevated white count and elevated venous lactic acid. Abnormal computed tomography scan of the bladder including bladder diverticula and filling defect. Dementia, decreased hearing, medical illnesses, Recommendations: I guess is that this is a urinary tract infection causing blood clot in the abnormality noted on the computed tomography scan. The patient does have a bladder diverticula suggesting chronic outlet obstruction. At this point in time I would recommend continuing with antibiotics. Irrigate the bladder as indicated. I will try to discuss with his guardian whether they wish that I proceed with cystoscopy as an outpatient.
[2018-05-21] MEDS: ACETAMINOPHEN TAB 500 MG TAB PO SCH ×3 (08:57→20:19)
[2018-05-21] MEDS: CHOLECALCIFEROL 1,000 UNIT TAB PO SCH (08:58)
[2018-05-21] MEDS: CYANOCOBALAMIN 500 MCG TAB PO SCH (08:58)
[2018-05-21] MEDS: FAMOTIDINE 20 MG TAB PO SCH (08:58)
[2018-05-21] MEDS: DONEPEZIL 5 MG TAB PO SCH (08:58)
[2018-05-21] MEDS: AMIODARONE 200 MG TAB PO SCH (08:58)
[2018-05-21] MEDS: HYOSCYAMINE SULFATE 0.125 MG TAB PO SCH (08:59)
[2018-05-21] MEDS: LEVOTHYROXINE 50 MCG TAB PO SCH (08:59)
[2018-05-21] MEDS: POTASSIUM CHLORIDE ER 10 MEQ TAB.ER.PRT PO SCH (08:59)
[2018-05-21] MEDS: MULTIVITAMINS, THERA 1 EACH TAB PO SCH (08:59)
[2018-05-21] MEDS: FUROSEMIDE 20 MG TAB PO SCH (08:59)
[2018-05-21] MEDS: PHENYTOIN SODIUM EXTENDED 100 MG CAP PO SCH ×2 (08:59→20:19)
[2018-05-21] MEDS: levETIRAcetam 500 MG TAB PO SCH (08:59)
--- NOTE | 2018-05-21 10:58 | P.CRDCN ---
History of Present Illness Consult date: 05/21/18 Requesting physician: Daron Carrington Consult reason: atrial fibrillation Chief complaint: Hematuria History of present illness: This is a pleasant 82-year-old gentleman with history of dementia, developmental delay, hearing disorder, seizure disorder, hypertension, hyperlipidemia, hypothyroidism, who lives in an adult assisted living facility, patient was noted to have hematuria and for this reason was brought to the hospital. An EKG was performed on admission here which showed atrial fibrillation and for this reason a cardiology consultation was requested. Most of the history was obtained from the medical record, upon review of the patient' s past medical history does appear that he may have had some atrial fibrillation in the past and he is on Coumadin. KUB x-ray was performed which showed soft tissue density overlying the region of the urinary bladder for which further characterization with CT would be recommended. Chest x-ray, appearance is improved as compared with prior exam. Correlate for possible pulmonary venous hypertension and interstitial edema. Blood pressure 115/50, heart rate 1 teens to 120, he was running a low-grade temperature of 99.8, 93% on 2 L of oxygen. White blood cell count on admission 20,000, 10.0 this morning. Pro time on admission 45.0, INR 5.0, INR this morning 1.3. Sodium 142 , potassium 4.4, BUN 13, creatinine 0.7. Plasma lactic acid level on admission 2.7, 1.5 this morning. At the time of my examination this morning, patient appears comfortable, he is mostly deaf, and does have some developmental delay. He denies any pain or palpitations at present. Breathing appears to be stable. Past Medical History Past Medical History: Atrial Fibrillation, Dementia, GERD/Reflux, Hyperlipidemia , Hypertension, Pneumonia, Seizure Disorder, Thyroid Disorder Additional Past Medical History / Comment(s): Hematoma on top of head, [place], wears 2 hearing aides. C5-C6 and T12 fractures. Last seizure was 2 years ago. Hypothyroid. Falls. History of Any Multi-Drug Resistant Organisms: None Reported Past Surgical History: Unable to Obtain, Orthopedic Surgery Additional Past Surgical History / Comment(s): Surgery on BL arms. Right knee surgery. Past Anesthesia/Blood Transfusion Reactions: Unable to Obtain Past Psychological History: Unable to Obtain Smoking Status: Never smoker Past Alcohol Use History: None Reported Past Drug Use History: None Reported - Past Family History Father Family Medical History: Unable to Obtain Mother Family Medical History: Unable to Obtain Medications and Allergies Home Medications Medication Instructions Recorded Confirmed Type Acetaminophen Tab [Tylenol] 500 mg PO TID@0800,1400,199907/23/14 05/20/18 History Cholecalciferol [Vitamin D3] 1,000 unit PO DAILY@0800 07/23/14 05/20/18 History Ferrous Sulfate [Iron (65 MG 325 mg PO DAILY@0800 07/23/14 05/20/18 History Elemental)] Furosemide [Lasix] 20 mg PO DAILY@0800 07/23/14 05/20/18 History Cyanocobalamin [Vitamin B-12] 250 mcg PO DAILY@0800 10/18/15 05/20/18 History Hyoscyamine Sulfate [Levsin-Sl] 0.125 mg PO DAILY@0800 10/18/15 05/20/18 History Levothyroxine Sodium [Synthroid] 50 mcg PO DAILY@0800 10/18/15 05/20/18 History Acetaminophen [Tylenol] 500 - 1,000 mg PO Q6H PRN 05/01/17 05/20/18 History Albuterol Inhaler [Ventolin Hfa 2 puff INHALATION Q4-6H PRN 05/01/17 05/20/18 History Inhaler] Amiodarone HCl [Pacerone] 200 mg PO DAILY@0800 05/01/17 05/20/18 History Artificial Tears-Hypromellose 1 drops BOTH EYES TID PRN 05/01/17 05/20/18 History [Artificial Tear Drops] Docusate [Colace] 100 mg PO DAILY@0800 05/01/17 05/20/18 History Donepezil HCl [Aricept] 5 mg PO DAILY@0800 05/01/17 05/20/18 History Famotidine 40 mg PO DAILY@0800 05/01/17 05/20/18 History PHENobarbital [Luminal] 48.6 mg PO DAILY@0800 05/01/17 05/20/18 History Potassium Chloride ER [K-Dur 10] 10 mg PO DAILY@0800 05/01/17 05/20/18 History clonazePAM [KlonoPIN] 0.5 mg PO HS@199905/01/17 05/20/18 History Atorvastatin [Lipitor] 40 mg PO HS 05/20/18 05/20/18 History Loperamide [Imodium] 2 mg PO QID PRN 05/20/18 05/20/18 History Magnesium Hydroxide [Milk of 2,400 mg PO BID PRN 05/20/18 05/20/18 History Magnesia] Multivitamins, Thera [Multivitamin 1 tab PO DAILY 05/20/18 05/20/18 History (formulary)] Oyster Calcium 1 tab PO DAILY 05/20/18 05/20/18 History Phenytoin Sodium Extended 100 mg PO BID 05/20/18 05/20/18 History [Dilantin] Warfarin Sodium [Coumadin] 4 mg PO DAILY 05/20/18 05/20/18 History diphenhydrAMINE [Benadryl] 25 mg PO DAILY PRN 05/20/18 05/20/18 History guaiFENesin [Mucinex] 600 mg PO BID PRN 05/20/18 05/20/18 History guaiFENesin-DM 100-10MG/5ML 10 - 20 ml PO Q4H PRN 05/20/18 05/20/18 History [Robitussin DM] levETIRAcetam [Keppra] 1,000 mg PO DAILY 05/20/18 05/20/18 History levETIRAcetam [Keppra] 750 mg PO HS 05/20/18 05/20/18 History Allergies Allergy/AdvReac Type Severity Reaction Status Date / Time Penicillins Allergy Unknown Verified 05/20/18 10:10 Physical Exam Vitals: Vital Signs Temp Pulse Pulse Resp BP BP Pulse Ox 05/21/18 08:00 122 H 18 05/21/18 07:57 98.2 F 122 H 18 115/50 93 L 05/21/18 03:35 98.8 F 96 17 110/62 97 05/21/18 00:00 99.8 F H 111 H 17 114/67 93 L 05/20/18 22:00 97.8 F 99 17 127/82 93 L 05/20/18 19:03 99.3 F 102 H 18 119/67 05/20/18 18:33 98.8 F 101 H 18 109/87 05/20/18 18:23 98.8 F 100 18 116/69 94 L 05/20/18 18:20 98.5 F 104 H 18 102/85 97 05/20/18 16:59 101 H 18 99 05/20/18 14:00 105 H 18 105/86 92 L 05/20/18 12:00 112 H 18 139/91 98 05/20/18 10:54 110 H 18 134/83 96 Intake and Output 05/20/18 05/21/18 05/21/18 22:59 06:59 14:59 Intake Total 0 700 217 Output Total 400 850 Balance -400 -150 217 Intake: Amount of Fluid Infused ( 700 ml) Blood Product 0 217 Ffp 24 Cp2d Unit 0 217 [id number] Output: Urine 400 850 Uretheral (Harvey) 400 Other: Voiding Method Indwelling Catheter Indwelling Catheter Weight 76.67 kg 75.5 kg PHYSICAL EXAMINATION: GENERAL: 82-year-old gentleman in no acute distress at the time of my examination HEENT: Head is atraumatic, normocephalic. Pupils equal, round. Sclera anicteric. Conjunctiva are clear. Mucous membranes of the mouth are moist. Neck is supple. There is no elevated jugular venous pressure. No carotid bruit is heard. HEART EXAMINATION: Heart S1 and S2 irregularly irregular CHEST EXAMINATION: Lungs are clear to auscultation and precussion. No chest wall tenderness is noted on palpation or with deep breathing. ABDOMEN: Soft, nontender. Bowel sounds are heard. No organomegaly noted. Patient does have a Harvey catheter in place, there is evidence of hematuria, and bleeding at catheter insertion area. EXTREMITIES: 2+ peripheral pulses with trace evidence of peripheral edema and no calf tenderness noted. NEUROLOGIC [patient is awake, alert and oriented 1. . Results 05/21/18 06:13 05/20/18 11:56 Cardiac Enzymes 05/20/18 Range/Units 11:56 AST 36 (17-59) U/L Coagulation 05/20/18 05/21/18 Range/Units 11:56 06:13 PT 45.0 H 12.6 H (9.0-12.0) sec APTT 41.3 H (22.0-30.0) sec CBC 05/20/18 05/20/18 05/21/18 Range/Units 11:56 19:18 01:40 WBC 20.0 H 18.4 H 13.6 H (3.8-10.6) k/uL RBC 3.89 L 3.23 L 2.72 L (4.30-5.90) m/uL Hgb 12.3 L 10.4 L 8.8 L D (13.0-17.5) gm/dL Hct 39.2 34.0 L 26.8 L (39.0-53.0) % Plt Count 342 321 249 (150-450) k/uL 05/21/18 Range/Units 06:13 WBC 10.0 (3.8-10.6) k/uL RBC 2.60 L (4.30-5.90) m/uL Hgb 8.3 L (13.0-17.5) gm/dL Hct 26.3 L (39.0-53.0) % Plt Count 226 (150-450) k/uL Comprehensive Metabolic Panel 05/20/18 Range/Units 11:56 Sodium 142 (137-145) mmol/L Potassium 4.4 (3.5-5.1) mmol/L Chloride 106 (98-107) mmol/L Carbon Dioxide 24 (22-30) mmol/L BUN 13 (9-20) mg/dL Creatinine 0.72 (0.66-1.25) mg/dL Glucose 131 H (74-99) mg/dL Calcium 9.0 (8.4-10.2) mg/dL AST 36 (17-59) U/L ALT 30 (21-72) U/L Alkaline Phosphatase 74 (38-126) U/L Total Protein 7.3 (6.3-8.2) g/dL Albumin 4.2 (3.5-5.0) g/dL Current Medications Generic Name Dose Route Start Last Admin Trade Name Freq PRN Reason Stop Dose Admin Acetaminophen 500 mg 05/20/18 22:33 05/21/18 08:57 Tylenol Tab PO 500 mg TID@0800,1400,2000 ODILIA Administration Amiodarone HCl 200 mg 05/21/18 08:00 05/21/18 08:58 Cordarone PO 200 mg DAILY@0800 ODILIA Administration Artificial Tears 1 drops 05/20/18 22:33 Artificial Tear Drops BOTH EYES TID PRN DRY EYES Atorvastatin Calcium 40 mg 05/21/18 21:00 Lipitor PO HS ODILIA Cholecalciferol 1,000 unit 05/21/18 08:00 05/21/18 08:58 Vitamin D3 PO 1,000 unit DAILY@0800 [facility] Administration Clonazepam 0.5 mg 05/20/18 20:00 05/20/18 23:42 Klonopin PO 0.5 mg HS@2000 ODILIA Administration Cyanocobalamin 250 mcg 05/21/18 08:00 05/21/18 08:58 Vitamin B-12 PO 250 mcg DAILY@0800 ODILIA Administration Donepezil HCl 5 mg 05/21/18 08:00 05/21/18 08:58 Aricept PO 5 mg DAILY@0800 ODILIA Administration Famotidine 40 mg 05/21/18 08:00 05/21/18 08:58 Pepcid PO 40 mg DAILY@0800 [facility] Administration Furosemide 20 mg 05/21/18 08:00 05/21/18 08:59 Lasix PO 20 mg DAILY@0800 [facility] Administration Guaifenesin 600 mg 05/20/18 22:33 Mucinex PO BID PRN Congestion Hyoscyamine 0.125 mg 05/21/18 08:00 05/21/18 08:59 Levsin PO 0.125 mg DAILY@0800 [facility] Administration Sodium Chloride 1,000 mls @ 75 mls/hr 05/20/18 16:15 05/21/18 07:05 Saline 0.9% IV 75 mls/hr .[id number] ODILIA Administration Ceftriaxone Sodium 1,000 mg/ 50 mls @ 100 mls/hr 05/21/18 07:00 05/21/18 06: 59 Sodium Chloride IVPB 100 mls/hr Q12H ODILIA Administration Levetiracetam 750 mg 05/20/18 23:00 05/20/18 23:42 Keppra PO 750 mg HS ODILIA Administration Levetiracetam 1,000 mg 05/21/18 09:00 05/21/18 08:59 Keppra PO 1,000 mg DAILY [facility] Administration Levothyroxine Sodium 50 mcg 05/21/18 08:00 05/21/18 08:59 Synthroid PO 50 mcg DAILY@0800 [facility] Administration Loperamide HCl 2 mg 05/20/18 22:33 Imodium PO QID PRN Loose Stool Magnesium Hydroxide 2,400 mg 05/20/18 22:33 Milk Of Magnesia PO BID PRN Constipation Multivitamins 1 each 05/21/18 09:00 05/21/18 08:59 Theragran PO 1 each DAILY ODILIA Administration Naloxone HCl 0.2 mg 05/20/18 16:07 Narcan IV Q2M PRN Opioid Reversal Phenobarbital 48.6 mg 05/21/18 08:00 05/21/18 09:55 Luminal PO 48.6 mg DAILY@0800 ODILIA Administration Phenytoin Sodium 100 mg 05/20/18 23:00 05/21/18 08:59 Dilantin PO 100 mg BID ODILIA Administration Potassium Chloride 10 meq 05/21/18 08:00 05/21/18 08:59 K-Dur 10 PO 10 meq DAILY@0800 ODILIA Administration Intake and Output 05/20/18 05/21/18 05/21/18 22:59 06:59 14:59 Intake Total 0 700 217 Output Total 400 850 Balance -400 -150 217 Intake: Amount of Fluid Infused ( 700 ml) Blood Product 0 217 Ffp 24 Cp2d Unit 0 217 [id number] Output: Urine 400 850 Uretheral (Harvey) 400 Other: Voiding Method Indwelling Catheter Indwelling Catheter Weight 76.67 kg 75.5 kg 05/21/18 06:13 05/20/18 11:56 EKG Interpretations (text) EKG shows atrial fibrillation with moderately rapid ventricular response. Assessment and Plan Plan: Assessment and plan #1 severe hematuria, combination of patient having a urinary bladder mass, possible malignancy, elevated INR on admission #2 elevated INR 5.0 on admission. #3 Alzheimer's dementia and cognitive impairment with developmental delay #4 history of seizure disorder #5 hypothyroidism #6 chronic persistent atrial fibrillation Plan Will obtain an echocardiogram with Doppler study. Patient was given vitamin K and fresh frozen plasma in the emergency room. INR is down today. Urology has been consulted regarding the patient's the bladder mass. We will optimize medication for rate control, hold off on anticoagulation at this time. Further recommendations to follow. DNP note has been reviewed, I agree with a documented findings and plan of care. Patient was seen and examined.
[2018-05-21] MEDS: METOPROLOL TARTRATE 25 MG TAB PO SCH ×2 (11:49→20:19)
--- NOTE | 2018-05-21 12:35 | ECHOF ---
Referral Reason:afib MEASUREMENTS -------- HEIGHT: 172.7 cm WEIGHT: 75.3 kg BP: 115/80 RVIDd: 2.6 cm (< 3.3) IVSd: 1.3 cm (0.6 - 1.1) LVIDd: 3.6 cm (3.9 - 5.3) LVPWd: 1.2 cm (0.6 - 1.1) IVSs: 1.5 cm LVIDs: 2.8 cm LVPWs: 1.8 cm LA Diam: 3.8 cm (2.7 - 3.8) LAESV Index (A-L): 36.55 ml/m Ao Diam: 4.1 cm (2.0 - 3.7) AV Cusp: 2.6 cm (1.5 - 2.6) MV EXCURSION: 14.967 mm (> 18.000) MV EF SLOPE: 89 mm/s (70 - 150) EPSS: 0.8 cm MV E Humberto: 0.91 m/s MV DecT: 138 ms MV A Humberto: 0.31 m/s MV E/A Ratio: 2.91 RAP: 5.00 mmHg RVSP: 30.02 mmHg FINDINGS -------- Atrial fibrillation. This was a technically adequate study. The left ventricular size is normal. There is mild concentric left ventricular hypertrophy. Overa ll left ventricular systolic function is mild-moderately impaired with, an EF between 40 - 45 %. The right ventricle is normal in size. LA is moderately dilated 34-39 ml/m2 The right atrium is normal in size. There is mild aortic valve sclerosis. Mild mitral annular calcification present. Mild tricuspid regurgitation present. Right ventricular systolic pressure is normal at < 35 mmHg. There is no pulmonic regurgitation present. The aortic root is dilated measuring 4.1cm. IVC Not well visulized. There is no pericardial effusion. CONCLUSIONS -------- 1. Atrial fibrillation. 2. This was a technically adequate study. 3. The left ventricular size is normal. 4. There is mild concentric left ventricular hypertrophy. 5. Overall left ventricular systolic function is mild-moderately impaired with, an EF between 40 - 45 %. 6. The right ventricle is normal in size. 7. LA is moderately dilated 34-39 ml/m2 8. The right atrium is normal in size. 9. There is mild aortic valve sclerosis. 10. Mild mitral annular calcification present. 11. Mild tricuspid regurgitation present. 12. Right ventricular systolic pressure is normal at < 35 mmHg. 13. There is no pulmonic regurgitation present. 14. The aortic root is dilated measuring 4.1cm. 15. IVC Not well visulized. 16. There is no pericardial effusion. PARACHUTE INSPECTOR: Heather Medeiros RDCS
--- NOTE | 2018-05-21 19:38 | PN ---
PROGRESS NOTE DATE OF SERVICE: May 21, 2018. PRESENTING COMPLAINT: Hematuria. INTERVAL HISTORY: This patient with dementia, is very hard of hearing presented with gross hematuria with Coumadin toxicity status post vitamin K. Has a sitter in place. The patient did tolerate his diet. Still having blood in the Harvey catheter, getting bladder washes. REVIEW OF SYSTEMS: Because of hard of hearing, patient cannot really answer questions. CURRENT MEDICATIONS: Reviewed that include IV ceftriaxone, IV fluids. PHYSICAL EXAMINATION: VITAL SIGNS: Temperature 98.3, pulse 92, respiration 16, blood pressure 105/58, pulse ox 97 percent on 2 L. GENERAL APPEARANCE: Lying in bed, awake. Moving about. EYES: Pupils equal. Conjunctivae pale. HEENT: External appearance of nose and ears normal. Oral cavity normal. Very hard of hearing. NECK: JVD unable to assess. Mass not palpable. RESPIRATORY: Effort normal. LUNGS: Decreased breath sounds. CARDIOVASCULAR: Heart sounds regular. No edema. ABDOMEN: Soft, nontender. Liver and spleen not palpable. PSYCHIATRY: Only occasionally follows commands. INVESTIGATIONS: White count 10, hemoglobin 8.3, INR 1.3, TSH is 1.3. ASSESSMENT: 1. Acute severe hematuria from the patient possibly has a bladder mass and/or blood clot. 2. Acute Coumadin toxicity causing hematuria, reversed with vitamin K. 3. Moderate cognitive impairment due to underlying Alzheimer's dementia. 4. Developmental delay. 5. Very hard of hearing. 6. Chronic seizure disorder. 7. Hypothyroidism. 8. Chronic congestive heart failure from systolic dysfunction, EF 40-45 percent. 9. Persistent atrial fibrillation. 10.Acute blood loss anemia from severe hematuria. Hemoglobin did go down from 10.4 to 8.3. PLAN: Prognosis is guarded. Continue with bladder wash to see if the blood improves. The patient may need a cystoscopy down the road. Otherwise, tolerating a diet. Given his age, we will hold off anticoagulation. MMODL / IJN: [id number] /
[2018-05-21] MEDS: ATORVASTATIN 40 MG TAB PO SCH (20:19)
[2018-05-21] MEDS: clonazePAM 0.5 MG TAB PO SCH (20:19)
[2018-05-22 07:38] LABS: Basophils % (A) 0 %; Eosinophils # (A) 0.3 k/uL (0-0.7); Eosinophils % (A) 2 %; HCT 25.3 % (39.0-53.0); HGB 8.2 gm/dL (13.0-17.5); Lymphocytes # (A) 1.8 k/uL (1.0-4.8); Lymphocytes % (A) 13 %; MCH 32.8 pg (25.0-35.0); MCHC 32.4 g/dL (31.0-37.0); MCV 101.3 fL (80.0-100.0); Macrocytosis Slight; Mean Platelet Volume 6.5; Monocytes # (A) 1.1 k/uL (0-1.0); Monocytes % (A) 8 %; Neutrophils # (A) 9.9 k/uL (1.3-7.7); Neutrophils % (A) 74 %; Platelet Count 213 k/uL (150-450); RDW 13.6 % (11.5-15.5); WBC 13.4 k/uL (3.8-10.6)
[2018-05-22] MEDS: DONEPEZIL 5 MG TAB PO SCH (07:49)
[2018-05-22] MEDS: AMIODARONE 200 MG TAB PO SCH (07:49)
[2018-05-22] MEDS: MULTIVITAMINS, THERA 1 EACH TAB PO SCH (07:49)
[2018-05-22] MEDS: POTASSIUM CHLORIDE ER 10 MEQ TAB.ER.PRT PO SCH (07:50)
[2018-05-22] MEDS: FAMOTIDINE 20 MG TAB PO SCH (07:50)
[2018-05-22] MEDS: LEVOTHYROXINE 50 MCG TAB PO SCH (07:50)
[2018-05-22] MEDS: ACETAMINOPHEN TAB 500 MG TAB PO SCH ×3 (07:50→20:25)
[2018-05-22] MEDS: levETIRAcetam 500 MG TAB PO SCH (07:50)
[2018-05-22] MEDS: PHENYTOIN SODIUM EXTENDED 100 MG CAP PO SCH ×2 (07:50→22:19)
[2018-05-22] MEDS: FUROSEMIDE 20 MG TAB PO SCH (07:50)
[2018-05-22] MEDS: CYANOCOBALAMIN 500 MCG TAB PO SCH (07:51)
[2018-05-22] MEDS: HYOSCYAMINE SULFATE 0.125 MG TAB PO SCH (07:51)
[2018-05-22] MEDS: METOPROLOL TARTRATE 25 MG TAB PO SCH ×2 (07:51→22:19)
[2018-05-22] MEDS: CHOLECALCIFEROL 1,000 UNIT TAB PO SCH (07:51)
[2018-05-22] MEDS: SODIUM CHLORIDE 0.9% 1,000 ML IV SCH (09:06)
--- NOTE | 2018-05-22 11:59 | CDI ---
Last Revision, June 2017 Documentation Clarification Form Date: 05/22/2018 10:35:00 AM From: Delfina Espinoza RN, CCDS Admit Date: 05/20/2018 6:01:00 PM Patient Name: Froylan Mcclelland Visit Number: [id number] Discharge Date: ATTENTION: The Clinical Documentation Specialists (CDI) and [facility] Coding Staff appreciate your assistance in clarifying documentation. Please respond to the clarification below the line at the bottom and electronically sign. The CDI & [facility] Coding staff will review the response and follow-up if needed. Please note: Queries are made part of the Legal Health Record. If you have any questions, please contact the author of this message via ITS. Daron Juan MD 05/21/18 Dr. Bear consult states "Gross hematuria, Urinary tract infection with sepsis based on elevated white count and elevated venous lactic acid. History/Risk Factors: Atrial Fibrillation, Dementia, Hypertension, Seizure, Thyroid disorder Clinical Indicators: Present with significant amount of blood clots and hematuria. His INR was elevated at 5. He had active bleeding. WBC/Left Shift 20.0, Neutrophils 16.8 UA: Color RED, Appearance Bloody, RBC >182, WBC >182 Lactic acid: 3.8, 2.7 CT of abdomen: moderate bilateral hydroureteronephrosis and there is urinary bladder mass with some hemorrhage. Blood cultures: Pending Urine culture: No growth Vitals signs on admission: 109/47 89 20 97.5, 134/84 100 18 Treatment: Rocephin IV Levaquin IV (now DC IV Fluids In your professional opinion, please clarify if these findings signify one of the following conditions, whether the condition is POA, and cause, if known: Condition Sepsis ruled in (specify infection source) Sepsis ruled out Other, please specify Unable to determine Present on Admission: Yes No Identify the (suspected) organism SIRS Criteria..2 or more of the following may indicate SIRS: Temperature < 96.8F (36C) or > 101.0F (38.3C) Heart Rate > 90 bpm Respiratory Rate > 20 breaths/min or PaCO2 < 32 mmHg White Blood Cell Count > 12,000 or < 4,000 cells/mm3 or > 10% bands Lactate >2.0 mmol/L (>4.0 is equivalent to septic shock) Please continue to document in your progress notes and discharge summary in order to capture severity of illness and risk of mortality. Include clinical findings that support your diagnosis. see progress note from today MTDD
--- NOTE | 2018-05-22 16:00 | P.PN ---
Subjective Progress Note Date: 05/22/18 This is a pleasant 82-year-old gentleman with history of dementia, developmental delay, hearing disorder, seizure disorder, hypertension, hyperlipidemia, hypothyroidism, who lives in an adult assisted living facility, patient was noted to have hematuria and for this reason was brought to the hospital. An EKG was performed on admission here which showed atrial fibrillation and for this reason a cardiology consultation was requested. Most of the history was obtained from the medical record, upon review of the patient' s past medical history does appear that he may have had some atrial fibrillation in the past and he is on Coumadin. KUB x-ray was performed which showed soft tissue density overlying the region of the urinary bladder for which further characterization with CT would be recommended. Chest x-ray, appearance is improved as compared with prior exam. Correlate for possible pulmonary venous hypertension and interstitial edema. Blood pressure 115/50, heart rate 1 teens to 120, he was running a low-grade temperature of 99.8, 93% on 2 L of oxygen. White blood cell count on admission 20,000, 10.0 this morning. Pro time on admission 45.0, INR 5.0, INR this morning 1.3. Sodium 142 , potassium 4.4, BUN 13, creatinine 0.7. Plasma lactic acid level on admission 2.7, 1.5 this morning. At the time of my examination this morning, patient appears comfortable, he is mostly deaf, and does have some developmental delay. He denies any pain or palpitations at present. Breathing appears to be stable. 05/22/2018 seen and examined this morning, continues to have significant hematuria. Blood pressure 96/60 with a heart rate in the 60s. 95% on room air. Hemoglobin 8.2 today. INR not done today. Yesterday was down to 1.3. Echocardiogram with Doppler study was performed which revealed an ejection fraction of 40-45%. From cardiology's perspective, this patient does require anticoagulation for stroke prevention. We will recommend initiating Eliquis once the patient is cleared from a urology perspective. Objective - Vital Signs Vital signs: Vital Signs Temp 97.9 F 05/22/18 15:45 Pulse 69 05/22/18 15:45 Resp 18 05/22/18 15:45 BP 96/62 05/22/18 15:45 Pulse Ox 95 05/22/18 15:45 Intake & Output 05/21/18 05/22/18 05/22/18 18:59 06:59 18:59 Intake Total 267 200 Output Total 200 1600 Balance 67 -1600 200 Weight 77 kg Intake: Intake, IV Titration 50 Amount cefTRIAXone 1,000 mg In 50 Sodium Chloride 0.9% 50 ml @ 100 mls/hr IVPB [facility] Rx#:[id number] Oral 200 Blood Product 217 Ffp 24 Cp2d Unit 217 [id number] Output: Urine 200 1600 Other: Voiding Method Indwelling Catheter Indwelling Catheter Indwelling Catheter - Exam PHYSICAL EXAMINATION: GENERAL: 82-year-old gentleman in no acute distress at the time of my examination HEENT: Head is atraumatic, normocephalic. Pupils equal, round. Sclera anicteric. Conjunctiva are clear. Mucous membranes of the mouth are moist. Neck is supple. There is no elevated jugular venous pressure. No carotid bruit is heard. HEART EXAMINATION: Heart S1 and S2 irregularly irregular CHEST EXAMINATION: Lungs are clear to auscultation and precussion. No chest wall tenderness is noted on palpation or with deep breathing. ABDOMEN: Soft, nontender. Bowel sounds are heard. No organomegaly noted. Patient does have a Harvey catheter in place, there is evidence of hematuria, and bleeding at catheter insertion area. EXTREMITIES: 2+ peripheral pulses with trace evidence of peripheral edema and no calf tenderness noted. NEUROLOGIC [patient is awake, alert and oriented - Labs CBC & Chem 7: 05/22/18 06:12 05/20/18 11:56 Labs: Abnormal Lab Results - Last 24 Hours (Table) 05/22/18 Range/Units 06:12 WBC 13.4 H (3.8-10.6) k/uL RBC 2.50 L (4.30-5.90) m/uL Hgb 8.2 L (13.0-17.5) gm/dL Hct 25.3 L (39.0-53.0) % MCV 101.3 H (80.0-100.0) fL Neutrophils # 9.9 H (1.3-7.7) k/uL Monocytes # 1.1 H (0-1.0) k/uL Microbiology - Last 24 Hours (Table) 05/20/18 16:00 Urine Culture - Final Urine,Catheterized 05/20/18 14:42 Blood Culture - Preliminary Blood No Growth after 24 hours Assessment and Plan Plan: Assessment and plan #1 severe hematuria, combination of patient having a urinary bladder mass, possible malignancy, elevated INR on admission #2 elevated INR 5.0 on admission. #3 Alzheimer's dementia and cognitive impairment with developmental delay #4 history of seizure disorder #5 hypothyroidism #6 chronic persistent atrial fibrillation Plan Cardiac gram with Doppler study showed an ejection fraction of 40-45%. Patient is currently off all anticoagulation and continues to have a significant amount of hematuria. Our recommendation, he is to initiate Eliquis 2-1/2 mg by mouth twice a day once the patient is cleared from a urology perspective. DNP note has been reviewed, I agree with a documented findings and plan of care. Patient was seen and examined.
[2018-05-22] MEDS: clonazePAM 0.5 MG TAB PO SCH (22:18)
[2018-05-22] MEDS: ATORVASTATIN 40 MG TAB PO SCH (22:19)
[2018-05-23 07:14] LABS: Basophils % (A) 0 %; Eosinophils # (A) 0.4 k/uL (0-0.7); Eosinophils % (A) 4 %; HCT 24.5 % (39.0-53.0); HGB 7.7 gm/dL (13.0-17.5); Hypochromasia Slight; Lymphocytes # (A) 1.6 k/uL (1.0-4.8); Lymphocytes % (A) 16 %; MCH 32.1 pg (25.0-35.0); MCHC 31.5 g/dL (31.0-37.0); Macrocytosis Slight; Mean Platelet Volume 6.8; Monocytes # (A) 0.8 k/uL (0-1.0); Monocytes % (A) 8 %; Neutrophils # (A) 7.1 k/uL (1.3-7.7); Neutrophils % (A) 70 %; Platelet Count 218 k/uL (150-450); RDW 13.8 % (11.5-15.5); WBC 10.2 k/uL (3.8-10.6)
--- NOTE | 2018-05-23 07:25 | PN ---
PROGRESS NOTE DATE OF SERVICE: 05/22/2018 PRESENTING COMPLAINT: Severe hematuria. INTERVAL HISTORY: This patient with dementia is also very hard of hearing. Presented with gross hematuria with Coumadin toxicity, status post vitamin K. Seen by Dr. Bear from Urology who felt the patient had sepsis from UTI. Started the patient on IV ceftriaxone. The patient is still having significant hematuria. Sitter at the bedside. Patient has been tolerating his diet. REVIEW OF SYSTEMS: Difficult to obtain because of very hard of hearing. CURRENT MEDICATIONS: Reviewed that include IV ceftriaxone and IV fluids. PHYSICAL EXAMINATION: Temperature 97.9, pulse 69, respiration 18, blood pressure 96/62, pulse ox 95% on room air. GENERAL APPEARANCE: Lying in bed, moving about. EYES: Pupils equal. Conjunctivae are pale. HEENT: External appearance of nose and ears normal. Oral cavity normal. Very hard of hearing. NECK: JVD unable to assess. Mass not palpable. RESPIRATORY: Effort normal. LUNGS: Decreased breath sounds. CARDIOVASCULAR: First and second sounds irregular, no edema. ABDOMEN: Soft, nontender. Liver and spleen not palpable. PSYCHIATRY: Patient does talk, but is difficult to follow because very hard of hearing. INVESTIGATIONS: White count 13.4, hemoglobin 8.2. ASSESSMENT: 1. Acute severe hematuria, possibly the patient having a bladder mass and/or urinary tract infection with sepsis. 2. Acute urinary tract infection from cystitis causing sepsis. 3. Acute Coumadin toxicity causing hematuria, reversed with vitamin K. 4. Moderate cognitive impairment due to underlying Alzheimer's dementia. 5. Developmental delay. 6. Very hard of hearing. 7. Chronic seizure disorder. 8. Hypothyroidism. 9. Chronic congestive heart failure from systolic dysfunction, ejection fraction 40%- 45%. 10.Persistent atrial fibrillation. 11.Acute blood loss anemia from severe hematuria. PLAN: Continue current medication and treatment plan. Keep patient on IV ceftriaxone. Patient is still having significant hematuria. Keep a close eye on the hemoglobin. Prognosis guarded. MMODL / IJN: [id number] /
[2018-05-23 07:30] LABS: Anion Gap 7 mmol/L; Blood Urea Nitrogen 11 mg/dL (9-20); Calcium 7.5 mg/dL (8.4-10.2); Carbon Dioxide 22 mmol/L (22-30); Chloride 113 mmol/L (98-107); Glucose 85 mg/dL (74-99); Potassium 4.1 mmol/L (3.5-5.1); Sodium 142 mmol/L (137-145)
[2018-05-23] MEDS: ACETAMINOPHEN TAB 500 MG TAB PO SCH ×3 (09:19→20:45)
[2018-05-23] MEDS: FAMOTIDINE 20 MG TAB PO SCH (09:19)
[2018-05-23] MEDS: CYANOCOBALAMIN 500 MCG TAB PO SCH (09:20)
[2018-05-23] MEDS: AMIODARONE 200 MG TAB PO SCH (09:21)
[2018-05-23] MEDS: FUROSEMIDE 20 MG TAB PO SCH (09:21)
[2018-05-23] MEDS: LEVOTHYROXINE 50 MCG TAB PO SCH (09:21)
[2018-05-23] MEDS: levETIRAcetam 500 MG TAB PO SCH (09:21)
[2018-05-23] MEDS: MULTIVITAMINS, THERA 1 EACH TAB PO SCH (09:21)
[2018-05-23] MEDS: CHOLECALCIFEROL 1,000 UNIT TAB PO SCH (09:22)
[2018-05-23] MEDS: METOPROLOL TARTRATE 25 MG TAB PO SCH ×2 (09:22→20:45)
[2018-05-23] MEDS: PHENYTOIN SODIUM EXTENDED 100 MG CAP PO SCH ×2 (09:22→20:45)
[2018-05-23] MEDS: DONEPEZIL 5 MG TAB PO SCH (11:33)
[2018-05-23] MEDS: POTASSIUM CHLORIDE ER 10 MEQ TAB.ER.PRT PO SCH (11:33)
[2018-05-23] MEDS: HYOSCYAMINE SULFATE 0.125 MG TAB PO SCH (11:33)
--- NOTE | 2018-05-23 15:33 | P.PN ---
Subjective Progress Note Date: 05/23/18 This patient is in the hospital with a urinary tract infection with sepsis, anticoagulation. He bled into the bladder. He has had a large clot in his bladder that is slowly dissolving. The urine has old blood with clots as expected. Her main urologic standpoint I would prefer not to do cystoscopy until the urine has cleared as well as infection supposed to really see what is going on and if anything at all. From The CAT scan it appears that he has a bladder diverticula. Objective - Vital Signs Vital signs: Vital Signs Temp 98.5 F 05/23/18 15:15 Pulse 89 05/23/18 15:15 Resp 18 05/23/18 15:15 BP 116/69 05/23/18 15:15 Pulse Ox 95 05/23/18 15:15 Intake & Output 05/22/18 05/23/18 05/23/18 18:59 06:59 18:59 Intake Total 200 650 993 Output Total 0 1000 Balance 200 -350 993 Weight 77 kg Intake: Intake, IV Titration 650 475 Amount Sodium Chloride 0.9% 1, 650 375 000 ml @ 75 mls/hr IV . [id number] [facility] Rx#:[id number] cefTRIAXone 1,000 mg In 100 Sodium Chloride 0.9% 50 ml @ 100 mls/hr IVPB Q12H [facility] Rx#:[id number] Oral 200 518 Output: Urine 0 1000 Other: Voiding Method Indwelling Catheter Indwelling Catheter Indwelling Catheter - Labs CBC & Chem 7: 05/23/18 06:13 05/23/18 06:13 Labs: Abnormal Lab Results - Last 24 Hours (Table) 05/23/18 05/23/18 Range/Units 06:13 06:13 RBC 2.40 L (4.30-5.90) m/uL Hgb 7.7 L (13.0-17.5) gm/dL Hct 24.5 L (39.0-53.0) % MCV 102.0 H (80.0-100.0) fL Chloride 113 H (98-107) mmol/L Creatinine 0.62 L (0.66-1.25) mg/dL Calcium 7.5 L (8.4-10.2) mg/dL Microbiology - Last 24 Hours (Table) 05/20/18 14:42 Blood Culture - Preliminary Blood No Growth after 48 hours
[2018-05-23] MEDS: SODIUM CHLORIDE 0.9% 1,000 ML IV SCH ×2 (17:08→17:21)
[2018-05-23] MEDS: ATORVASTATIN 40 MG TAB PO SCH (20:45)
[2018-05-23] MEDS: clonazePAM 0.5 MG TAB PO SCH (20:45)
[2018-05-24] MEDS: SODIUM CHLORIDE 0.9% 1,000 ML IV SCH ×2 (00:51→15:08)
--- NOTE | 2018-05-24 01:54 | PN ---
PROGRESS NOTE DATE OF SERVICE: May 23, 2018. PRESENTING COMPLAINT: Hematuria. INTERVAL HISTORY: This patient has dementia, very hard of hearing. Presents with gross hematuria with Coumadin toxicity that was reversed. The patient also being treated for sepsis from UTI with IV antibiotics. Today the blood in the Harvey catheter has become more darkened. The patient tolerating a diet. REVIEW OF SYSTEMS: Difficult to do because of very hard of hearing. CURRENT MEDICATIONS: Reviewed that include IV fluids and IV ceftriaxone. EXAMINATION: VITAL SIGNS: Afebrile, pulse 59, respiratory 18, blood pressure 116/69, pulse 95% on room air. GENERAL APPEARANCE: Lying in bed. Comfortable. EYES: Pupils equal. Conjunctivae pale. HEENT: External appearance of nose and ears normal. Oral cavity normal. Very hard of hearing. NECK: JVD unable to assess. Mass not palpable. RESPIRATORY: Effort normal. LUNGS: Decreased breath sounds. CARDIOVASCULAR: 1st and 2nd sounds normal. No edema. ABDOMEN: Soft, nontender. Liver and spleen not palpable. Harvey catheter showing dark blood. PSYCHIATRY: Patient is able to talk. Was difficult to follow because it is very hard of hearing. INVESTIGATIONS: White count 10.2, hemoglobin 7.7, potassium 4.1, BUN 11, creatinine 0.62. ASSESSMENT: 1. Acute severe hematuria. Bladder mass cannot be ruled out. 2. Acute urinary tract infection from cystitis causing sepsis on IV antibiotics. 3. Acute Coumadin toxicity that was reversed with vitamin causing hematuria. 4. Moderate cognitive impairment due to underlying Alzheimer's dementia, late onset type. 5. Developmental delay. 6. Very hard of hearing. 7. Chronic disorder. 8. Hypothyroidism. 9. Chronic congestive heart failure from systolic dysfunction, EF 40-45 percent. 10.Persistent atrial fibrillation. 11.Acute blood loss anemia from hematuria. PLAN: Discussed with Dr. Bear. Continue to treat infection at the present time. Down the road, he may have to do a cystoscopy to see if there is a bladder mass . The patient has dropped his hemoglobin. Will keep the iron the same. If symptomatic, we will have to then transfuse blood. MMODL / IJN: [id number] /
[2018-05-24 06:30] LABS: Basophils % (A) 0 %; Eosinophils # (A) 0.4 k/uL (0-0.7); Eosinophils % (A) 5 %; HCT 24.9 % (39.0-53.0); HGB 7.9 gm/dL (13.0-17.5); Hypochromasia Slight; Lymphocytes # (A) 1.4 k/uL (1.0-4.8); Lymphocytes % (A) 14 %; MCHC 31.6 g/dL (31.0-37.0); MCV 101.1 fL (80.0-100.0); Macrocytosis Slight; Monocytes # (A) 0.8 k/uL (0-1.0); Monocytes % (A) 9 %; Neutrophils # (A) 6.7 k/uL (1.3-7.7); Neutrophils % (A) 70 %; Platelet Count 238 k/uL (150-450); RBC 2.46 m/uL (4.30-5.90); RDW 13.8 % (11.5-15.5); WBC 9.6 k/uL (3.8-10.6)
[2018-05-24 06:44] LABS: Anion Gap 6 mmol/L; Blood Urea Nitrogen 9 mg/dL (9-20); Calcium 7.8 mg/dL (8.4-10.2); Carbon Dioxide 23 mmol/L (22-30); Chloride 111 mmol/L (98-107); Glucose 91 mg/dL (74-99); Sodium 140 mmol/L (137-145)
[2018-05-24] MEDS: FUROSEMIDE 20 MG TAB PO SCH (08:13)
[2018-05-24] MEDS: levETIRAcetam 500 MG TAB PO SCH (08:13)
[2018-05-24] MEDS: PHENYTOIN SODIUM EXTENDED 100 MG CAP PO SCH ×2 (08:13→20:47)
[2018-05-24] MEDS: FAMOTIDINE 20 MG TAB PO SCH (08:13)
[2018-05-24] MEDS: LEVOTHYROXINE 50 MCG TAB PO SCH (08:13)
[2018-05-24] MEDS: MULTIVITAMINS, THERA 1 EACH TAB PO SCH (08:13)
[2018-05-24] MEDS: METOPROLOL TARTRATE 25 MG TAB PO SCH ×2 (08:14→20:47)
[2018-05-24] MEDS: AMIODARONE 200 MG TAB PO SCH (08:14)
[2018-05-24] MEDS: CHOLECALCIFEROL 1,000 UNIT TAB PO SCH (08:14)
[2018-05-24] MEDS: CYANOCOBALAMIN 500 MCG TAB PO SCH (08:14)
[2018-05-24] MEDS: HYOSCYAMINE SULFATE 0.125 MG TAB PO SCH (08:14)
[2018-05-24] MEDS: ACETAMINOPHEN TAB 500 MG TAB PO SCH ×3 (08:14→20:49)
[2018-05-24] MEDS: DONEPEZIL 5 MG TAB PO SCH (08:15)
[2018-05-24] MEDS: POTASSIUM CHLORIDE ER 10 MEQ TAB.ER.PRT PO SCH (08:15)
[2018-05-24 08:36] LABS: INR 1.1 (<1.2); Prothrombin Time 10.8 sec (9.0-12.0)
[2018-05-24] MEDS: ATORVASTATIN 40 MG TAB PO SCH (20:48)
[2018-05-24] MEDS: clonazePAM 0.5 MG TAB PO SCH (20:48)
--- NOTE | 2018-05-24 22:46 | PN ---
PROGRESS NOTE DATE OF SERVICE: May 24, 2018. PRESENTING COMPLAINT: Hematuria. INTERVAL HISTORY: This patient with dementia, very hard of hearing, presented with gross hematuria with Coumadin toxicity that was reversed. Also treated for sepsis from UTI. Urine significantly cleared up, has a Harvey catheter. Otherwise, patient continues to tolerate his diet. REVIEW OF SYSTEMS: Difficult to do because of hard of hearing. CURRENT MEDICATIONS: Reviewed that include IV ceftriaxone. PHYSICAL EXAMINATION: VITAL SIGNS: Temperature 97.4, pulse 73, respiratory 18, blood pressure 100/60, pulse ox 92 percent on 3 L. GENERAL APPEARANCE: Lying in bed, comfortable. EYES: Pupils equal. Conjunctivae pale. HEENT: External appearance of nose and ears normal. Oral cavity normal. Very hard of hearing. NECK JVD not raised. Mass not palpable. RESPIRATORY: Effort normal. Lungs decreased breath sounds. CARDIOVASCULAR: 1st and 2nd sounds normal. No edema. ABDOMEN: Soft, nontender. Harvey catheter in place. Urine is clearing up. PSYCHIATRY: Patient able to talk, but difficult to filler picker because he is very hard of hearing. INVESTIGATIONS: Hemoglobin is 7.9. ASSESSMENT: 1. Acute severe hematuria, bladder mass cannot be ruled out. 2. Acute urinary tract infection from cystitis causing sepsis on IV antibiotics. 3. Acute Coumadin toxicity that was reversed with vitamin K. 4. Moderate cognitive impairment due to underlying Alzheimer's dementia, late onset type. 5. Developmental delay. 6. Very hard of hearing. 7. Hypothyroidism. 8. Chronic congestive heart failure from systolic dysfunction, EF 40-45 percent. 9. Persistent atrial fibrillation. 10.Acute blood loss anemia from hematuria. PLAN: Continue current medication and treatment plan. The patient's urine culture came back negative. We will switch the patient to oral Cipro as he has been afebrile. We will let urology determine timing for cystoscopy. MMODL / IJN: [id number] /
[2018-05-25] MEDS: SODIUM CHLORIDE 0.9% 1,000 ML IV SCH ×2 (06:15→17:16)
[2018-05-25 07:11] LABS: HCT 27.5 % (39.0-53.0); HGB 8.5 gm/dL (13.0-17.5); Hypochromasia Slight; MCH 31.7 pg (25.0-35.0); MCHC 31.1 g/dL (31.0-37.0); MCV 102.2 fL (80.0-100.0); Macrocytosis Slight; Platelet Count 299 k/uL (150-450); RBC 2.69 m/uL (4.30-5.90); WBC 11.5 k/uL (3.8-10.6)
[2018-05-25 07:22] LABS: Anion Gap 10 mmol/L; Blood Urea Nitrogen 10 mg/dL (9-20); Calcium 7.9 mg/dL (8.4-10.2); Carbon Dioxide 25 mmol/L (22-30); Chloride 108 mmol/L (98-107); Glucose 95 mg/dL (74-99); Potassium 3.9 mmol/L (3.5-5.1); Sodium 143 mmol/L (137-145)
[2018-05-25 07:24] LABS: INR 1.1 (<1.2); Prothrombin Time 10.5 sec (9.0-12.0)
[2018-05-25] MEDS: FAMOTIDINE 20 MG TAB PO SCH (07:35)
[2018-05-25] MEDS: POTASSIUM CHLORIDE ER 10 MEQ TAB.ER.PRT PO SCH (07:35)
[2018-05-25] MEDS: CIPROFLOXACIN HCL 500 MG TAB PO SCH ×2 (07:36→20:32)
[2018-05-25] MEDS: AMIODARONE 200 MG TAB PO SCH (07:36)
[2018-05-25] MEDS: FUROSEMIDE 20 MG TAB PO SCH (07:36)
[2018-05-25] MEDS: LEVOTHYROXINE 50 MCG TAB PO SCH (07:36)
[2018-05-25] MEDS: CHOLECALCIFEROL 1,000 UNIT TAB PO SCH (07:36)
[2018-05-25] MEDS: CYANOCOBALAMIN 500 MCG TAB PO SCH (07:36)
[2018-05-25] MEDS: levETIRAcetam 500 MG TAB PO SCH (07:36)
[2018-05-25] MEDS: ACETAMINOPHEN TAB 500 MG TAB PO SCH ×3 (07:36→20:31)
[2018-05-25] MEDS: METOPROLOL TARTRATE 25 MG TAB PO SCH ×2 (07:37→20:32)
[2018-05-25] MEDS: DONEPEZIL 5 MG TAB PO SCH (07:37)
[2018-05-25] MEDS: MULTIVITAMINS, THERA 1 EACH TAB PO SCH (07:37)
[2018-05-25] MEDS: HYOSCYAMINE SULFATE 0.125 MG TAB PO SCH (07:37)
[2018-05-25] MEDS: PHENYTOIN SODIUM EXTENDED 100 MG CAP PO SCH ×2 (07:37→20:32)
--- NOTE | 2018-05-25 11:00 | P.PN ---
Subjective Progress Note Date: 05/25/18 The patient was seen for gross hematuria probably secondary to urinary tract infection with sepsis. His culture is negative but he was on antibiotic. The gross blood clot has almost cleared. The urine is a very light tea-colored. Once the urine is completely clear the catheter can be removed for a voiding trial. He will need cystoscopy as an outpatient. Objective - Vital Signs Vital signs: Vital Signs Temp 98 F 05/25/18 07:34 Pulse 100 05/25/18 07:34 Resp 19 05/25/18 07:34 BP 122/58 05/25/18 07:34 Pulse Ox 92 L 05/25/18 07:34 Intake & Output 05/24/18 05/25/18 05/25/18 18:59 06:59 18:59 Intake Total 600 1275 Output Total 400 Balance 600 875 Weight 79.5 kg Intake: Intake, IV Titration 375 Amount Sodium Chloride 0.9% 1, 275 000 ml @ 75 mls/hr IV . [id number] [facility] Rx#:[id number] cefTRIAXone 1,000 mg In 100 Sodium Chloride 0.9% 50 ml @ 100 mls/hr IVPB Q12H [facility] Rx#:[id number] Oral 600 900 Output: Urine 400 Other: Voiding Method Indwelling Catheter Indwelling Catheter Indwelling Catheter - Labs CBC & Chem 7: 05/25/18 06:05 05/25/18 06:05 Labs: Abnormal Lab Results - Last 24 Hours (Table) 05/25/18 05/25/18 Range/Units 06:05 06:05 WBC 11.5 H (3.8-10.6) k/uL RBC 2.69 L (4.30-5.90) m/uL Hgb 8.5 L (13.0-17.5) gm/dL Hct 27.5 L (39.0-53.0) % MCV 102.2 H (80.0-100.0) fL Chloride 108 H (98-107) mmol/L Creatinine 0.56 L (0.66-1.25) mg/dL Calcium 7.9 L (8.4-10.2) mg/dL Microbiology - Last 24 Hours (Table) 05/20/18 14:42 Blood Culture - Preliminary Blood No Growth after 96 hours
[2018-05-25 11:16] LABS: Band Neutrophils % 1 %; Eosinophils # (M) 0.81 k/uL (0-0.7); Metamyelocytes # (M) 0.23 k/uL (0); Metamyelocytes % 2 %; Myelocytes # (M) 0.12 k/uL (0); Myelocytes % 1 %; Neutrophils % (M) 65 %; Nucleated Red Blood Cells 0 /100 WBC (0-0); Total Cells Counted 200
[2018-05-25] MEDS: ATORVASTATIN 40 MG TAB PO SCH (20:31)
[2018-05-25] MEDS: clonazePAM 0.5 MG TAB PO SCH (20:31)
--- NOTE | 2018-05-25 23:32 | PN ---
PROGRESS NOTE DATE OF SERVICE: 05/25/2018 PRESENTING COMPLAINT: Hematuria. INTERVAL HISTORY: The patient has dementia, very hard of hearing, presented with gross hematuria with Coumadin toxicity that was reversed. Also treated for sepsis for UTI. Urine nearly cleared up. Dr. Bear is planning an outpatient cystoscopy. REVIEW OF SYSTEMS: Attempted. CURRENT MEDICATIONS: Reviewed that include p.o. Cipro. EXAMINATION: VITAL SIGNS: Afebrile, pulse 87, respiration 17, blood pressure 100/50, pulse ox 95 percent on 3 L. GENERAL APPEARANCE: Lying in bed, comfortable. EYES: Pupils equal. Conjunctivae pale. HEENT is external appearance of nose and ears normal. Oral cavity normal. Very hard of hearing. NECK JVD not raised. Mass not palpable. RESPIRATORY: Effort normal. LUNGS: Decreased breath sounds. CARDIOVASCULAR: 1st and 2nd sounds normal. No edema. ABDOMEN: Soft and nontender. Harvey catheter in place. Urine is significantly cleared up. PSYCH: The patient is very hard of hearing. INVESTIGATIONS: Hemoglobin 8.5, white count 11.5, potassium 3.9. ASSESSMENT: 1. Acute severe hematuria, bladder mass cannot be ruled out. Has greatly improved from underlying acute urinary tract infection from cystitis causing sepsis. The patient has been on IV antibiotics, now on p.o. antibiotic. 2. Acute Coumadin toxicity that is reversed with vitamin K. 3. Moderate cognitive impairment due to Alzheimer's dementia, late onset type. 4. Developmental delay. 5. Very hard of hearing. 6. Hypothyroidism. 7. Chronic congestive heart failure, systolic dysfunction, EF 40-45 percent. 8. Persistent atrial fibrillation. 9. Acute blood loss anemia from hematuria. PLAN: As per urology, will do PC Harvey for a voiding trial in the morning. MMODL / IJN: [id number] /
[2018-05-26] MEDS ORDERED: LORazepam 2 MG/ML INJ IV STA (00:54)
[2018-05-26] MEDS: CYANOCOBALAMIN 500 MCG TAB PO SCH (07:54)
[2018-05-26] MEDS: CHOLECALCIFEROL 1,000 UNIT TAB PO SCH (07:54)
[2018-05-26] MEDS: AMIODARONE 200 MG TAB PO SCH (07:54)
[2018-05-26] MEDS: ACETAMINOPHEN TAB 500 MG TAB PO SCH ×3 (07:55→22:01)
[2018-05-26] MEDS: HYOSCYAMINE SULFATE 0.125 MG TAB PO SCH (07:55)
[2018-05-26] MEDS: LEVOTHYROXINE 50 MCG TAB PO SCH (07:55)
[2018-05-26] MEDS: DONEPEZIL 5 MG TAB PO SCH (07:55)
[2018-05-26] MEDS: POTASSIUM CHLORIDE ER 10 MEQ TAB.ER.PRT PO SCH (07:56)
[2018-05-26] MEDS: METOPROLOL TARTRATE 25 MG TAB PO SCH ×2 (07:56→22:01)
[2018-05-26] MEDS: levETIRAcetam 500 MG TAB PO SCH (07:56)
[2018-05-26] MEDS: MULTIVITAMINS, THERA 1 EACH TAB PO SCH (07:56)
[2018-05-26] MEDS: FAMOTIDINE 20 MG TAB PO SCH (07:57)
[2018-05-26] MEDS: FUROSEMIDE 20 MG TAB PO SCH (07:57)
[2018-05-26 08:20] LABS: Anion Gap 6 mmol/L; Blood Urea Nitrogen 8 mg/dL (9-20); Calcium 7.8 mg/dL (8.4-10.2); Carbon Dioxide 29 mmol/L (22-30); Chloride 104 mmol/L (98-107); Glucose 87 mg/dL (74-99); Potassium 4.2 mmol/L (3.5-5.1); Sodium 139 mmol/L (137-145)
[2018-05-26] MEDS: PHENYTOIN SODIUM EXTENDED 100 MG CAP PO SCH ×2 (10:14→22:26)
[2018-05-26] MEDS: CIPROFLOXACIN HCL 500 MG TAB PO SCH ×2 (10:14→22:26)
[2018-05-26] MEDS ORDERED: HYDROcodone/APAP 5-325MG 1 EACH TAB PO STA (14:47)
[2018-05-26] MEDS ORDERED: DIAZEPAM 5 MG TAB PO STA (14:48)
--- NOTE | 2018-05-26 15:43 | P.OP ---
Date of Procedure: 05/26/18 Preoperative Diagnosis: Gross hematuria, abnormal outer phase of computed tomography scan rule out carcinoma the bladder Postoperative Diagnosis: Same, no evidence of bladder carcinoma Anesthesia: local Pathology: none sent Condition: stable Disposition: floor Indications for Procedure: The patient is an 82-year-old mentally handicapped individual who came in the hospital with gross hematuria. He has been anticoagulated. He had a what appeared to be a urine infection. A computed tomography scan of abdomen identified what appeared to be a bladder diverticula with a filling defect within. The question is whether this was clot or tumor. I suspected clot based on the clinical progress but we'll perform cystoscopy at the bedside in order to determine. I choose to do this rather than bring him in the office due to his total handicap and aggressive behavior. He has been given 5 mg of [place] and 5 milligrams of Valium. Description of Procedure: The patient is prepped and draped sterilely. Introduce a flexible cystoscope in the urethra. The anterior urethra is normal. The prostatic urethra is somewhat obstructing. I entered the bladder and there is heavy trabeculation with cellule formation. There is a wide mouth diverticula on the posterior bladder wall. There is cystitis on the floor the bladder. There is some old clot floating in the bladder. I see no tumor stone or stone. Scope removed. The patient tolerated the procedure well. Impression gross hematuria due to urinary infection aggravated by anticoagulation. BPH with obstruction. Abnormal computed tomography scan showing the filling defect that was blood clot. It is since dissolved. At this point in time no further urologic intervention will be required.
--- NOTE | 2018-05-26 20:54 | PN ---
PROGRESS NOTE DATE OF SERVICE: 05/26/2018 PRESENTING COMPLAINT: Hematuria. INTERVAL HISTORY: The is a patient with dementia, very hard of hearing. He presented with gross hematuria with Coumadin toxicity that was reversed. Also treated for UTI with sepsis. There was a concern about bladder tumor. I spoke to Dr. Bear. He will be taking the patient for cystoscopy later this afternoon. REVIEW OF SYSTEMS: Attempted. CURRENT MEDICATIONS: Reviewed. They include p.o. Cipro. PHYSICAL EXAMINATION: Temperature 97.6, pulse 90, respiration 16, blood pressure 97/50, pulse ox 93% on 3 L. GENERAL APPEARANCE: Lying in bed. Comfortable. EYES: Pupils equal. Conjunctivae pale. HEENT: External appearance of nose and ears normal. Oral cavity normal. Very hard of hearing. NECK: JVD not raised. Mass not palpable. RESPIRATORY: Effort normal. LUNGS: Decreased breath sounds. CARDIOVASCULAR: First and second sounds normal. No edema. ABDOMEN: Soft, non-tender. Liver and spleen not palpable. PSYCHIATRY: Patient is very hard of hearing. INVESTIGATIONS: Hemoglobin 8.5. ASSESSMENT: 1. Acute severe hematuria. Bladder mass cannot be ruled out. 2. Acute urinary tract infection from cystitis causing sepsis. Responding well to antibiotics. 3. Acute Coumadin toxicity that was reversed with vitamin K. 4. 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 5. Developmental delay. 6. Very hard of hearing. 7. Hypothyroidism. 8. Chronic congestive heart failure, systolic dysfunction, ejection fraction 40% to 45%. 9. Persistent atrial fibrillation. 10.Acute blood loss anemia from hematuria. PLAN: I have discussed with Dr. Bear. He will be doing a cystoscopy this afternoon. Further plan accordingly from there. MMODL / IJN: [id number] /
[2018-05-26] MEDS: clonazePAM 0.5 MG TAB PO SCH (22:01)
[2018-05-26] MEDS: ATORVASTATIN 40 MG TAB PO SCH (22:01)
[2018-05-27] MEDS: levETIRAcetam 500 MG TAB PO SCH (09:06)
[2018-05-27] MEDS: CIPROFLOXACIN HCL 500 MG TAB PO SCH (09:07)
[2018-05-27] MEDS: FAMOTIDINE 20 MG TAB PO SCH (09:08)
[2018-05-27] MEDS: CHOLECALCIFEROL 1,000 UNIT TAB PO SCH (09:08)
[2018-05-27] MEDS: CYANOCOBALAMIN 500 MCG TAB PO SCH (09:08)
[2018-05-27] MEDS: AMIODARONE 200 MG TAB PO SCH (09:08)
[2018-05-27] MEDS: HYOSCYAMINE SULFATE 0.125 MG TAB PO SCH (09:08)
[2018-05-27] MEDS: FUROSEMIDE 20 MG TAB PO SCH (09:09)
[2018-05-27] MEDS: DONEPEZIL 5 MG TAB PO SCH (09:09)
[2018-05-27] MEDS: METOPROLOL TARTRATE 25 MG TAB PO SCH (09:09)
[2018-05-27] MEDS: LEVOTHYROXINE 50 MCG TAB PO SCH (09:09)
[2018-05-27] MEDS: MULTIVITAMINS, THERA 1 EACH TAB PO SCH (09:10)
[2018-05-27] MEDS: ACETAMINOPHEN TAB 500 MG TAB PO SCH ×2 (09:12→15:28)
[2018-05-27] MEDS: PHENYTOIN SODIUM EXTENDED 100 MG CAP PO SCH (09:13)
[2018-05-27] MEDS: POTASSIUM CHLORIDE ER 10 MEQ TAB.ER.PRT PO SCH (09:14)
[2018-05-27 10:42] VITALS: BMI 22.8
[2018-05-27 12:54] VITALS: BP 92/54; PULSE 101; RESP 22; TEMP 98
--- NOTE | 2018-05-28 07:50 | DS ---
DISCHARGE SUMMARY DATE OF ADMISSION: 05/20/2018 DATE OF DISCHARGE: 05/27/2018 FINAL DIAGNOSES: 1. Acute severe hematuria secondary to Coumadin toxicity. 2. Acute urinary tract infection from cystitis causing sepsis. 3. Acute Coumadin toxicity that was reversed with vitamin K. 4. Moderate cognitive impairment due to Alzheimer's dementia, late onset type. 5. Developmental delay. 6. Very hard of hearing. 7. Hypothyroidism. 8. Chronic congestive heart failure from systolic dysfunction, ejection fraction 40% to 45%. 9. Persistent atrial fibrillation. 10.Acute blood loss anemia from hematuria. HOSPITAL COURSE: This patient presented with severe hematuria. The patient's INR was elevated to 5 on presentation. Patient was given vitamin K and some fresh frozen plasma. The patient's hemoglobin was 12.3 when he came in, did drop down as low as to 7.7. Patient EGD. The patient's hemoglobin though stabilized to 8.5. There was concern about a bladder mass. Hence, cystoscopy was done. It was all felt to be a blood clot. At the present time, anticoagulation has been held in view of the above presentation. The patient is very hard of hearing. PHYSICAL EXAMINATION: On examination, temperature 98, pulse 101, respiration 22, blood pressure 92/54 pulse ox 96% on 3 L. The patient is very hard of hearing. LUNGS: Decreased breath sounds. INVESTIGATIONS: Hemoglobin is 8.5. BUN 8, creatinine 0.55. CONSULTANTS: Marianela Clements from Urology and Dr. Simon Poon from Cardiology. The patient also had a 2-D echocardiogram, EF is 40% to 45%. Additionally patient as an outpatient to follow up with Cardiology to determine about going back on to anticoagulation. DISCHARGE MEDICATIONS: 1. Tylenol 500 mg p.o. t.i.d. 2. Vitamin D3, 1000 units p.o. daily. 3. Iron 325 p.o. daily. 4. Lasix 20 mg p.o. daily. 5. Vitamin B12, 250 mcg p.o. daily. 6. Levsin 0.125 mg p.o. daily. 7. Synthroid 50 mcg p.o. daily. 8. Tylenol 500 to 1000 mg p.o. q.6 p.r.n. 9. Ventolin HFA 2 puffs every 4 p.r.n. 10.Amiodarone 200 mg p.o. daily. 11.Artificial tear drops 1 drop t.i.d. p.r.n. 12.Aricept 5 mg p.o. daily. 13.Pepcid 40 mg p.o. daily. 14.Luminal 48.6 mg p.o. daily. 15.Potassium 10 p.o. daily. 16.Klonopin 0.5 mg q.h.s. 17.Lipitor 40 mg q.h.s. 18.Imodium 2 mg p.o. q.i.d. p.r.n. 19.Milk of magnesia 2400 mg p.o. b.i.d. p.r.n. 20.Multivitamin one tablet p.o. daily. 21.Oyster calcium 1 tablet p.o. daily. 22.Dilantin 100 mg p.o. b.i.d. 23.Mucinex 600 mg b.i.d. p.r.n. 24.Robitussin 10 to 20 mL q.4 p.r.n. 25.Keppra 1000 mg p.o. daily. 26.Keppra 750 mg p.o. q.h.s. 27.Eliquis 2.5 mg p.o. b.i.d. . 28.Cipro 500 mg p.o. b.i.d. for 10 tablets. 29.Lopressor 25 mg b.i.d. CLARIFICATION: Patient's Coumadin was held. The patient was started on Eliquis per Cardiology. Follow up with Visiting Physician, Dr. Chua in 2 days. Follow up with Dr. Simon Poon on 06/02/2018. Again, patient is being put on Eliquis per Cardiology. Coumadin was discontinued. Discharge planning more than 35 minutes. MMODL / IJN: [id number] /
== END 2018-05-27 16:40 | disposition home or self-care (01) | DRG 872 ==
LOC: EC 09:36 → 3SCARD 18:01 → 3NMEDONC 05-25 21:07
PROVIDERS: ADMIT Hospitalist; ATTEND Hospitalist
PROC: 30233K1 Transfusion of Nonautologous Frozen Plasma into Peripheral Vein, Percutaneous Approach (ICD-10-PCS; principal; 2018-05-20)
DX: A41.9 Sepsis, unspecified organism (principal); D62 Acute posthemorrhagic anemia; I50.22 Chronic systolic (congestive) heart failure; D68.32 Hemorrhagic disorder due to extrinsic circulating anticoagulants; N30.01 Acute cystitis with hematuria; N13.8 Other obstructive and reflux uropathy; R62.50 Unspecified lack of expected normal physiological development in childhood; E03.9 Hypothyroidism, unspecified; H91.90 Unspecified hearing loss, unspecified ear; I11.0 Hypertensive heart disease with heart failure; E78.5 Hyperlipidemia, unspecified; G30.1 Alzheimer's disease with late onset; F02.80 Dementia in other diseases classified elsewhere, unspecified severity, without behavioral disturbance, psychotic disturbance, mood disturbance, and anxiety; G40.909 Epilepsy, unspecified, not intractable, without status epilepticus; N40.1 Benign prostatic hyperplasia with lower urinary tract symptoms; I48.2 Chronic atrial fibrillation; K21.9 Gastro-esophageal reflux disease without esophagitis; N32.3 Diverticulum of bladder; T45.515A Adverse effect of anticoagulants, initial encounter; Z66 Do not resuscitate; Z79.01 Long term (current) use of anticoagulants; Z79.899 Other long term (current) drug therapy; Z88.0 Allergy status to penicillin; Z79.890 Hormone replacement therapy; Z97.4 Presence of external hearing-aid
CPT/HCPCS: 36415; 51702; 71046; 74018; 74177; 80048; 80053; 80185; 81001; 83605; 84443; 85025; 85027; 85610; 85730; 86850; 86900; 86901; 87040; 87086; 93005; 93306; 94760; 96361; 96365; 96366; 96367; 99285

== ENCOUNTER → 2018-06-26 | Outpatient (CLI) | payer MEDICARE | END | disposition home or self-care (01) | LOC: RADUSWWP 13:33 | PROVIDERS: ATTEND Podiatrist | DX: Z53.9 Procedure and treatment not carried out, unspecified reason (principal) ==

== ENCOUNTER → 2018-07-18 | Outpatient (CLI) | payer MEDICARE ==
[2018-07-18 12:55] LABS: HCT 32.2 % (39.0-53.0); HGB 9.8 gm/dL (13.0-17.5); Hypochromasia Marked; MCH 29.3 pg (25.0-35.0); MCHC 30.5 g/dL (31.0-37.0); Mean Platelet Volume 6.4; Platelet Count 309 k/uL (150-450); RBC 3.35 m/uL (4.30-5.90)
[2018-07-18 12:59] LABS: MCV 96.1 fL (80.0-100.0)
[2018-07-18 17:38] LABS: Albumin 3.8 g/dL (3.80-4.90); Albumin/Globulin Ratio 1.73 (1.20-2.10); Anion Gap 8.6 mmol/L (4.00-12.00); Calcium 8.2 mg/dL (8.7-10.3); Carbon Dioxide 28.4 mmol/L (21.6-31.8); Globulin 2.2 g/dL (1.6-3.3); Potassium 4.2 mmol/L (3.5-5.5); Total Bilirubin 0.2 mg/dL (0.2-1.2)
== END | disposition home or self-care (01) ==
LOC: LABWHC1 11:32
PROVIDERS: ATTEND Podiatrist
DX: L89.620 Pressure ulcer of left heel, unstageable (principal)
CPT/HCPCS: 36415; 80053; 84134; 85027

== ENCOUNTER 2019-05-10 10:30 | Inpatient (IN) | payer MEDICARE ==
[2019-05-10] MEDS ORDERED: SODIUM CHLORIDE 0.9% 1,000 ML IV ONE ×2 (11:08→14:13)
--- NOTE | 2019-05-10 11:18 | ED ---
General Adult HPI - General Chief complaint: Weakness Stated complaint: Slurred Words, High BP Time Seen by Provider: 05/10/19 11:00 Source: Caregiver Limitations: altered mental status, physical limitation - History of Present Illness Initial comments: [facility] for evaluation. Per caregiver, the patient has been generally weak and has had altered mental status for the past week or so. She states that the patient has not been eating as per his usual. She denies any reported trauma or injury. She is unaware of the patient having a fever. Patient is unable to provide any history secondary to dementia and altered mental status. - Related Data Home Medications Medication Instructions Recorded Confirmed Acetaminophen Tab [Tylenol] 500 mg PO TID@0800,1400,199907/23/14 05/10/19 Cholecalciferol [Vitamin D3 (25 1,000 unit PO DAILY@79907/23/14 05/10/19 Mcg = 1000 Iu)] Ferrous Sulfate [Iron (65 MG 325 mg PO DAILY@79907/23/14 05/10/19 Elemental)] Furosemide [Lasix] 20 mg PO DAILY@79907/23/14 05/10/19 Cyanocobalamin [Vitamin B-12] 250 mcg PO DAILY@0800 10/18/15 05/10/19 Hyoscyamine Sulfate [Levsin-Sl] 0.125 mg PO DAILY@0800 10/18/15 05/10/19 Levothyroxine Sodium [Synthroid] 50 mcg PO DAILY@0800 10/18/15 05/10/19 Acetaminophen [Tylenol] 500 - 1,000 mg PO Q6H PRN 05/01/17 05/10/19 Albuterol Inhaler [Ventolin Hfa 2 puff INHALATION RT-Q6H PRN 05/01/17 05/10/19 Inhaler] Amiodarone HCl [Pacerone] 200 mg PO DAILY@79905/01/17 05/10/19 Artificial Tears-Hypromellose 1 drops BOTH EYES TID PRN 05/01/17 05/10/19 [Artificial Tear Drops] Donepezil HCl [Aricept] 5 mg PO DAILY@199905/01/17 05/10/19 Famotidine 40 mg PO DAILY@79905/01/17 05/10/19 PHENobarbital [Luminal] 48.6 mg PO DAILY@0800 05/01/17 05/10/19 Potassium Chloride ER [K-Dur 10] 10 mg PO DAILY@0800 05/01/17 05/10/19 clonazePAM [KlonoPIN] 0.25 mg PO HS@199905/01/17 05/10/19 Atorvastatin [Lipitor] 40 mg PO HS@199905/20/18 05/10/19 Loperamide [Imodium] 2 mg PO Q6H PRN 05/20/18 05/10/19 Magnesium Hydroxide [Milk of 2,400 mg PO BID PRN 05/20/18 05/10/19 Magnesia] Oyster Calcium 500 mg PO DAILY@0800 05/20/18 05/10/19 Phenytoin Sodium Extended 100 mg PO BID 05/20/18 05/10/19 [Dilantin] guaiFENesin [Mucinex] 600 mg PO BID PRN 05/20/18 05/10/19 guaiFENesin-DM 100-10MG/5ML 10 - 20 ml PO Q4H PRN 05/20/18 05/10/19 [Robitussin DM] levETIRAcetam [Keppra] 1,000 mg PO DAILY@0800 05/20/18 05/10/19 levETIRAcetam [Keppra] 750 mg PO HS@199905/20/18 05/10/19 Ibuprofen [Motrin Ib] 200 mg PO Q4H PRN 05/10/19 05/10/19 Metoprolol Tartrate [Lopressor] 12.5 mg PO BID@0800,199905/10/19 05/10/19 Jonel Senior Tab 1 tab PO DAILY@0800 05/10/19 05/10/19 Allergies Allergy/AdvReac Type Severity Reaction Status Date / Time Penicillins Allergy Unknown Verified 05/10/19 11:44 Review of Systems ROS Statement: Those systems with pertinent positive or pertinent negative responses have been documented in the HPI. ROS Other: All systems not noted in ROS Statement are negative. Limitations: ROS unobtainable due to patients medical condition Past Medical History Past Medical History: Atrial Fibrillation, Dementia, GERD/Reflux, Hyperlipidemia, Hypertension, Pneumonia, Seizure Disorder, Thyroid Disorder Additional Past Medical History / Comment(s): Hematoma on top of head, [place], wears 2 hearing aides. C5-C6 and T12 fractures. Last seizure was 2 years ago. Hypothyroid. Falls. History of Any Multi-Drug Resistant Organisms: MRSA Date of last positivie culture/infection: 08/29/18 MDRO Source:: HEEL Past Surgical History: Unable to Obtain, Orthopedic Surgery Additional Past Surgical History / Comment(s): Surgery on BL arms. Right knee surgery. Past Anesthesia/Blood Transfusion Reactions: Unable to Obtain Past Psychological History: Unable to Obtain Smoking Status: Never smoker Past Alcohol Use History: None Reported Past Drug Use History: None Reported - Past Family History Father Family Medical History: Unable to Obtain Mother Family Medical History: Unable to Obtain General Exam Limitations: altered mental status, physical limitation General appearance: alert Head exam: Present: atraumatic, normocephalic Eye exam: Present: normal appearance, PERRL. Absent: scleral icterus ENT exam: Present: mucous membranes moist Neck exam: Absent: tenderness Respiratory exam: Present: normal lung sounds bilaterally. Absent: respiratory distress, wheezes, rales, rhonchi, stridor Cardiovascular Exam: Present: regular rate, normal rhythm, normal heart sounds, other (Normal radial pulses bilaterally) GI/Abdominal exam: Present: soft. Absent: distended, tenderness, guarding Extremities exam: Present: other (A superficial pressure ulcer is noted over left hip). Absent: pedal edema Back exam: Present: other (A stage 1-2 right sacral ulcer is noted with mild surrounding erythema) Neurological exam: Present: alert, other (Patient is moving all 4 extremities spontaneously; patient localizes to pain in all 4 extremities) Skin exam: Present: warm, dry, normal color Course Vital Signs 05/10/19 05/10/19 05/10/19 10:41 12:11 13:30 Temperature 98.9 F Pulse Rate 107 H 93 93 Respiratory 18 22 20 Rate Blood Pressure 72/47 103/60 85/69 O2 Sat by Pulse 98 97 96 Oximetry 05/10/19 05/10/19 05/10/19 14:33 14:41 15:00 Temperature Pulse Rate 98 97 Respiratory 18 18 16 Rate Blood Pressure 97/47 97/73 95/73 O2 Sat by Pulse 93 L 92 L 91 L Oximetry 05/10/19 15:43 Temperature Pulse Rate 71 Respiratory 18 Rate Blood Pressure 98/62 O2 Sat by Pulse 92 L Oximetry - Reevaluation(s) Reevaluation #1: 05/10/19 14:47 Case, H&P, test results and ED management thus far were discussed with Dr. Carrington. He accepts hospital floor admission. He recommends starting the patient on a D5 half-normal saline IV fluid drip at 100 mL/h after his one liter fluid bolus is given in the ED. He does not recommend giving the patient a 30 mL/kg fluid bolus according to sepsis guidelines given that the patient is severely hypernatremic. He also does not recommend adding any additional antibiotic coverage. He has no further recommendations at this time. Reevaluation #2: 05/10/19 15:23 Patient remains alert and breathing comfortably. Patient has not had any seizure activity while in the ED. Reevaluation #3: 05/10/19 16:59 Patient's systolic blood pressure has been pretty stable in the high 90s for the past couple of hours now. EKG Findings - EKG Comments: EKG Findings:: Normal sinus rhythm, ventricular rate of 99 bpm, normal NM and QRS intervals, normal QT interval, leftward axis, no ST or T-wave abnormality Medical Decision Making - Medical Decision Making Patient is noted to be significantly hypernatremic, and he is also noted to have a UTI. Patient has been borderline hypotensive while in the ED. Patient was given a 1 L IV fluid bolus of normal saline in the ED with improvement in his blood pressure. Patient was not given the 30 mg/kg sepsis fluid bolus secondary to the his significant hypernatremia, for fear of correcting his sodium too rapidly. Will admit the patient to the hospital at this time for further evaluation and management of his hypernatremia, renal insufficiency and UTI. - Lab Data Result diagrams: 05/10/19 13:04 05/10/19 13:04 Lab Results 05/10/19 05/10/19 05/10/19 Range/Units 13:04 13:04 13:04 WBC 17.4 H (3.8-10.6) k/uL RBC 4.49 (4.30-5.90) m/uL Hgb 15.0 (13.0-17.5) gm/dL Hct 48.4 (39.0-53.0) % MCV 107.8 H (80.0-100.0) fL MCH 33.3 (25.0-35.0) pg MCHC 30.9 L (31.0-37.0) g/dL RDW 12.9 (11.5-15.5) % Plt Count 370 (150-450) k/uL Neutrophils % 83 % Lymphocytes % 8 % Monocytes % 5 % Eosinophils % 2 % Basophils % 1 % Neutrophils # 14.4 H (1.3-7.7) k/uL Lymphocytes # 1.3 (1.0-4.8) k/uL Monocytes # 0.9 (0-1.0) k/uL Eosinophils # 0.3 (0-0.7) k/uL Basophils # 0.2 (0-0.2) k/uL Hypochromasia Marked Macrocytosis Moderate PT 11.7 (9.0-12.0) sec INR 1.1 (<1.2) APTT 21.1 L (22.0-30.0) sec Sodium 168 H* (137-145) mmol/L Potassium 5.0 (3.5-5.1) mmol/L Chloride 135 H* (98-107) mmol/L Carbon Dioxide 27 (22-30) mmol/L Anion Gap 6 mmol/L BUN 64 H (9-20) mg/dL Creatinine 2.06 H (0.66-1.25) mg/dL Est GFR (CKD-EPI)AfAm 34 (>60 ml/min/1.73 sqM) Est GFR (CKD-EPI)NonAf 29 (>60 ml/min/1.73 sqM) Glucose 133 H (74-99) mg/dL Lactic Ac Sepsis Rflx Plasma Lactic Acid Bartolome (0.7-2.0) mmol/L Calcium 8.5 (8.4-10.2) mg/dL Total Bilirubin 0.4 (0.2-1.3) mg/dL AST 66 H (17-59) U/L ALT 34 (21-72) U/L Alkaline Phosphatase 122 (38-126) U/L Ammonia (<30) umol/L Creatine Kinase 486 H (55-170) U/L Troponin I (0.000-0.034) ng/mL Total Protein 7.3 (6.3-8.2) g/dL Albumin 3.5 (3.5-5.0) g/dL Lipase 48 (23-300) U/L TSH 0.448 L (0.465-4.680) mIU/L Urine Color Urine Appearance (Clear) Urine pH (5.0-8.0) Ur Specific Davis (1.001-1.035) Urine Protein (Negative) Urine Glucose (UA) (Negative) Urine Ketones (Negative) Urine Blood (Negative) Urine Nitrite (Negative) Urine Bilirubin (Negative) Urine Urobilinogen (<2.0) mg/dL Ur Leukocyte Esterase (Negative) Urine RBC (0-5) /hpf Urine WBC (0-5) /hpf Urine WBC Clumps (None) /hpf Urine Bacteria (None) /hpf Urine Mucus (None) /hpf Urine Opiates Screen (NotDetected) Ur Oxycodone Screen (NotDetected) Urine Methadone Screen (NotDetected) Ur Propoxyphene Screen (NotDetected) Ur Barbiturates Screen (NotDetected) Phenytoin <3.0 ug/mL U Tricyclic Antidepress (NotDetected) Ur Phencyclidine Scrn (NotDetected) Ur Amphetamines Screen (NotDetected) U Methamphetamines Scrn (NotDetected) U Benzodiazepines Scrn (NotDetected) Urine Cocaine Screen (NotDetected) U Marijuana (THC) Screen (NotDetected) 05/10/19 05/10/19 05/10/19 Range/Units 13:04 13:04 13:04 WBC (3.8-10.6) k/uL RBC (4.30-5.90) m/uL Hgb (13.0-17.5) gm/dL Hct (39.0-53.0) % MCV (80.0-100.0) fL MCH (25.0-35.0) pg MCHC (31.0-37.0) g/dL RDW (11.5-15.5) % Plt Count (150-450) k/uL Neutrophils % % Lymphocytes % % Monocytes % % Eosinophils % % Basophils % % Neutrophils # (1.3-7.7) k/uL Lymphocytes # (1.0-4.8) k/uL Monocytes # (0-1.0) k/uL Eosinophils # (0-0.7) k/uL Basophils # (0-0.2) k/uL Hypochromasia Macrocytosis PT (9.0-12.0) sec INR (<1.2) APTT (22.0-30.0) sec Sodium (137-145) mmol/L Potassium (3.5-5.1) mmol/L Chloride (98-107) mmol/L Carbon Dioxide (22-30) mmol/L Anion Gap mmol/L BUN (9-20) mg/dL Creatinine (0.66-1.25) mg/dL Est GFR (CKD-EPI)AfAm (>60 ml/min/1.73 sqM) Est GFR (CKD-EPI)NonAf (>60 ml/min/1.73 sqM) Glucose (74-99) mg/dL Lactic Ac Sepsis Rflx Plasma Lactic Acid Bartolome 2.5 H* (0.7-2.0) mmol/L Calcium (8.4-10.2) mg/dL Total Bilirubin (0.2-1.3) mg/dL AST (17-59) U/L ALT (21-72) U/L Alkaline Phosphatase (38-126) U/L Ammonia 15 (<30) umol/L Creatine Kinase (55-170) U/L Troponin I 0.032 (0.000-0.034) ng/mL Total Protein (6.3-8.2) g/dL Albumin (3.5-5.0) g/dL Lipase (23-300) U/L TSH (0.465-4.680) mIU/L Urine Color Urine Appearance (Clear) Urine pH (5.0-8.0) Ur Specific Davis (1.001-1.035) Urine Protein (Negative) Urine Glucose (UA) (Negative) Urine Ketones (Negative) Urine Blood (Negative) Urine Nitrite (Negative) Urine Bilirubin (Negative) Urine Urobilinogen (<2.0) mg/dL Ur Leukocyte Esterase (Negative) Urine RBC (0-5) /hpf Urine WBC (0-5) /hpf Urine WBC Clumps (None) /hpf Urine Bacteria (None) /hpf Urine Mucus (None) /hpf Urine Opiates Screen (NotDetected) Ur Oxycodone Screen (NotDetected) Urine Methadone Screen (NotDetected) Ur Propoxyphene Screen (NotDetected) Ur Barbiturates Screen (NotDetected) Phenytoin ug/mL U Tricyclic Antidepress (NotDetected) Ur Phencyclidine Scrn (NotDetected) Ur Amphetamines Screen (NotDetected) U Methamphetamines Scrn (NotDetected) U Benzodiazepines Scrn (NotDetected) Urine Cocaine Screen (NotDetected) U Marijuana (THC) Screen (NotDetected) 05/10/19 05/10/19 Range/Units 13:20 13:51 WBC (3.8-10.6) k/uL RBC (4.30-5.90) m/uL Hgb (13.0-17.5) gm/dL Hct (39.0-53.0) % MCV (80.0-100.0) fL MCH (25.0-35.0) pg MCHC (31.0-37.0) g/dL RDW (11.5-15.5) % Plt Count (150-450) k/uL Neutrophils % % Lymphocytes % % Monocytes % % Eosinophils % % Basophils % % Neutrophils # (1.3-7.7) k/uL Lymphocytes # (1.0-4.8) k/uL Monocytes # (0-1.0) k/uL Eosinophils # (0-0.7) k/uL Basophils # (0-0.2) k/uL Hypochromasia Macrocytosis PT (9.0-12.0) sec INR (<1.2) APTT (22.0-30.0) sec Sodium (137-145) mmol/L Potassium (3.5-5.1) mmol/L Chloride (98-107) mmol/L Carbon Dioxide (22-30) mmol/L Anion Gap mmol/L BUN (9-20) mg/dL Creatinine (0.66-1.25) mg/dL Est GFR (CKD-EPI)AfAm (>60 ml/min/1.73 sqM) Est GFR (CKD-EPI)NonAf (>60 ml/min/1.73 sqM) Glucose (74-99) mg/dL Lactic Ac Sepsis Rflx Y Plasma Lactic Acid Bartolome (0.7-2.0) mmol/L Calcium (8.4-10.2) mg/dL Total Bilirubin (0.2-1.3) mg/dL AST (17-59) U/L ALT (21-72) U/L Alkaline Phosphatase (38-126) U/L Ammonia (<30) umol/L Creatine Kinase (55-170) U/L Troponin I (0.000-0.034) ng/mL Total Protein (6.3-8.2) g/dL Albumin (3.5-5.0) g/dL Lipase (23-300) U/L TSH (0.465-4.680) mIU/L Urine Color Yellow Urine Appearance Cloudy (Clear) Urine pH 5.0 (5.0-8.0) Ur Specific Davis 1.019 (1.001-1.035) Urine Protein 1+ H (Negative) Urine Glucose (UA) Negative (Negative) Urine Ketones Negative (Negative) Urine Blood Trace H (Negative) Urine Nitrite Negative (Negative) Urine Bilirubin Negative (Negative) Urine Urobilinogen <2.0 (<2.0) mg/dL Ur Leukocyte Esterase Large H (Negative) Urine RBC 3 (0-5) /hpf Urine WBC >182 H (0-5) /hpf Urine WBC Clumps Few H (None) /hpf Urine Bacteria Many H (None) /hpf Urine Mucus Many H (None) /hpf Urine Opiates Screen Not Detected (NotDetected) Ur Oxycodone Screen Not Detected (NotDetected) Urine Methadone Screen Not Detected (NotDetected) Ur Propoxyphene Screen Not Detected (NotDetected) Ur Barbiturates Screen Detected H (NotDetected) Phenytoin ug/mL U Tricyclic Antidepress Not Detected (NotDetected) Ur Phencyclidine Scrn Not Detected (NotDetected) Ur Amphetamines Screen Not Detected (NotDetected) U Methamphetamines Scrn Not Detected (NotDetected) U Benzodiazepines Scrn Not Detected (NotDetected) Urine Cocaine Screen Not Detected (NotDetected) U Marijuana (THC) Screen Not Detected (NotDetected) - Radiology Data Radiology results: report reviewed (CT head shows no acute intracranial abnormality), image reviewed (Chest x-ray shows cardiomegaly and left lung base scarring versus atelectasis) Disposition Clinical Impression: Altered mental status, Urinary tract infection, Hypernatremia, Acute renal insufficiency Disposition: ADMITTED IP TO THIS HOSP Condition: Stable Is patient prescribed a controlled substance at d/c from ED?: No Referrals: Hansel Chua MD [Primary Care Provider] - 1-2 days Time of Disposition: 14:47 Decision Date: 05/10/19 Decision Time: 14:16
[2019-05-10 13:23] LABS: Basophils # (A) 0.2 k/uL (0-0.2); Basophils % (A) 1 %; Eosinophils # (A) 0.3 k/uL (0-0.7); Eosinophils % (A) 2 %; HCT 48.4 % (39.0-53.0); Hypochromasia Marked; Lymphocytes # (A) 1.3 k/uL (1.0-4.8); Lymphocytes % (A) 8 %; MCH 33.3 pg (25.0-35.0); MCHC 30.9 g/dL (31.0-37.0); MCV 107.8 fL (80.0-100.0); Macrocytosis Moderate; Mean Platelet Volume 6.5; Monocytes # (A) 0.9 k/uL (0-1.0); Monocytes % (A) 5 %; Neutrophils # (A) 14.4 k/uL (1.3-7.7); Neutrophils % (A) 83 %; Platelet Count 370 k/uL (150-450); RBC 4.49 m/uL (4.30-5.90); RDW 12.9 % (11.5-15.5); WBC 17.4 k/uL (3.8-10.6)
[2019-05-10 13:38] LABS: INR 1.1 (<1.2); Partial Thromboplastin Time 21.1 sec (22.0-30.0); Prothrombin Time 11.7 sec (9.0-12.0)
[2019-05-10 13:40] LABS: ALT 34 U/L (21-72); AST 66 U/L (17-59); African American GFR (CKD) 34 (>60 ml/min/1.73 sqM); Albumin 3.5 g/dL (3.5-5.0); Alkaline Phosphatase 122 U/L (38-126); Anion Gap 6 mmol/L; Blood Urea Nitrogen 64 mg/dL (9-20); Calcium 8.5 mg/dL (8.4-10.2); Carbon Dioxide 27 mmol/L (22-30); Creatine Kinase 486 U/L (55-170); Glucose 133 mg/dL (74-99); Phenytoin (Dilantin) <3.0 ug/mL; Total Bilirubin 0.4 mg/dL (0.2-1.3); Total Protein 7.3 g/dL (6.3-8.2)
[2019-05-10 13:42] LABS: Appearance,Urine Cloudy (Clear); Bacteria,Urine Many /hpf; Bilirubin,Urine Negative (Negative); Blood,Urine Trace (Negative); Color,Urine Yellow; Glucose,Urine (UA) Negative (Negative); Ketones,Urine Negative (Negative); Leukocyte Esterase,Urine Large (Negative); Mucus,Urine Many /hpf; Nitrite,Urine Negative (Negative); Protein,Urine 1+ (Negative); RBC,Urine 3 /hpf (0-5); Specific Gravity,Urine 1.019 (1.001-1.035); Urobilinogen,Urine <2.0 mg/dL (<2.0)
[2019-05-10 13:44] LABS: Amphetamine Screen,Urine Not Detected (NotDetected); Barbiturate Screen,Urine Detected (NotDetected); Benzodiazepines Screen,Urine Not Detected (NotDetected); Cocaine Screen,Urine Not Detected (NotDetected); Methadone Screen, Urine Not Detected (NotDetected); Opiate Screen,Urine Not Detected (NotDetected); Oxycodone Screen, Urine Not Detected (NotDetected); Phencyclidine Screen,Urine Not Detected (NotDetected); Tricyclic Antidepressant,Urine Not Detected (NotDetected); Urn Cannabinoid Scrn Not Detected (NotDetected)
[2019-05-10 13:49] LABS: Sodium 168 mmol/L (137-145)
[2019-05-10 13:50] LABS: Chloride 135 mmol/L (98-107)
--- NOTE | 2019-05-10 14:31 | XR ---
EXAMINATION TYPE: XR chest 2V DATE OF EXAM: 05/10/2019 COMPARISON: 05/20/2018 HISTORY: Altered mental status TECHNIQUE: Frontal and lateral views of the chest are obtained. FINDINGS: Heart is enlarged. There is no heart failure. Costophrenic angles are clear. There is oste openia. Thoracic aorta is atheromatous. There is small linear density left lung base. IMPRESSION: Cardiomegaly. There is probably some scarring or atelectasis left lung base. No change. No heart failure.
--- NOTE | 2019-05-10 14:33 | CT ---
EXAMINATION TYPE: CT brain wo con DATE OF EXAM: 05/10/2019 COMPARISON: 05/27/2017 HISTORY: Altered mental status CT DLP: 1224.4 mGycm Automated exposure control for dose reduction was used. FINDINGS: There is diffuse cerebral cortical atrophy. There is no mass effect nor midline shift. There is no si gn of intracranial hemorrhage. There is mucosal thickening and fluid levels in the sphenoid sinus. Ca lvarium appears intact. IMPRESSION: MODERATE DIFFUSE ATROPHY. NO ACUTE INTRACRANIAL ABNORMALITY. BRAIN UNCHANGED. 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
[2019-05-10] MEDS ORDERED: DEXTROSE 5%-0.45% NACL 1,000 ML IV SCH (15:00)
[2019-05-10] MEDS: PHENYTOIN SODIUM EXTENDED 100 MG CAP PO SCH (21:04)
[2019-05-10] MEDS: METOPROLOL TARTRATE 12.5 MG TAB PO SCH (21:04)
[2019-05-10] MEDS: ATORVASTATIN 40 MG TAB PO SCH (21:13)
[2019-05-10] MEDS: clonazePAM 0.5 MG TAB PO SCH (21:13)
[2019-05-10] MEDS: SODIUM CHLORIDE 0.9% 250 ML IV SCH (21:23)
[2019-05-10] MEDS: DONEPEZIL 5 MG TAB PO SCH (22:15)
--- NOTE | 2019-05-10 22:32 | P.HPIM ---
History of Present Illness H&P Date: 05/10/19 Chief Complaint: Week History of presenting complaint: This is a 83-year-old patient of R visiting physician Dr. Chua. Chronic stable medical conditions include developmental delay but dementia, very hard of hearing, seizure disorder, hypothyroid, atrial fibrillation, congestive heart failure. Patient lives at [facility]. Patient unable to give any history. Only makes sounds. Patient was brought in by the staff as patient is not eating drinking. Very lethargic. This has been going on for close to one week. Patient oral intake is also gone down. Patient's can't ever infected appearing urine with elevated white count. Also found to have a sodium 168 and a creatinine of 2.06. Admitted for the same. Review of systems cannot be done as patient doesn't speak Past medical history to include: Mental delay with dementia, hard of hearing, seizure disorder, hypothyroid, atrial fibrillation, congestive heart failure EF 40-45%, atrial fibrillation Social history: No smoking. No alcohol Resident of [facility] Physical examination: VITAL SIGNS: 98, 107, 18, 70 20 47, 98% room air GENERAL: BMI 27.5 laying in bed tired appearing. EYES: Pupils equal. Conjunctiva normal. HEENT: [External appearance of nose and ears normal, oral cavity dry NECK: JVD unable to assess; masses not palpable. HEART: First and second heart sounds are normal; no edema. LUNGS: Respiratory rate normal; clear to auscultation. ABDOMEN: Soft, nontender, liver spleen not palpable, no masses palpable. PSYCH: [Laying in bed, confused doesn't talk much unable to assess NEUROLOGICAL: Cranial nerves grossly intact; no facial asymmetry, power and sensation grossly intact. Moving all 4 limbs. Patient only makes also start ta lk LYMPHATICS: No lymph nodes palpable in the axilla and neck INVESTIGATIONS, reviewed in the clinical context: White count 7.4 hemoglobin 15 sodium was 168 chloride 135 bun 64 creatinine 2.06 patient's colostomy and creatinine was 8/0.55 in 2017 UA positive for leukoesterase WBC Urine tox screen positive for barbiturates lactic acid 2.6 Assessment: -Acute UTI from cystitis causing sepsis -Severe hypernatraemia from dehydration -Toxic metabolic encephalopathy from sepsis -Lactic acidosis from above -Developmental delay with advanced dementia -Very hard of hearing -Chronic seizure disorder -Hypothyroid -Persistent atrial fibrillation -Chronic congestive heart failure from systolic dysfunction EF 40-45% Plan: Home medications resumed. Starting on ceftriaxone. We'll give the patient D5 0.45 at 150 mL an hour. Patient did give fluid bolus in the ER. Prognosis guarded. Follow closely. Past Medical History Past Medical History: Atrial Fibrillation, Dementia, GERD/Reflux, Hyperlipidemia, Hypertension, Pneumonia, Seizure Disorder, Thyroid Disorder Additional Past Medical History / Comment(s): Hematoma on top of head, [place], wears 2 hearing aides. C5-C6 and T12 fractures. Last seizure was 2 years ago. Hypothyroid. Falls. History of Any Multi-Drug Resistant Organisms: MRSA Date of last positivie culture/infection: 08/29/18 MDRO Source:: HEEL Past Surgical History: Unable to Obtain, Orthopedic Surgery Additional Past Surgical History / Comment(s): Surgery on BL arms. Right knee s urgery. Past Anesthesia/Blood Transfusion Reactions: Unable to Obtain Smoking Status: Never smoker - Past Family History Father Family Medical History: Unable to Obtain Mother Family Medical History: Unable to Obtain Medications and Allergies Home Medications Medication Instructions Recorded Confirmed Type Acetaminophen Tab [Tylenol] 500 mg PO TID@0800,1400,199907/23/14 05/10/19 History Cholecalciferol [Vitamin D3 (25 1,000 unit PO DAILY@79907/23/14 05/10/19 History Mcg = 1000 Iu)] Ferrous Sulfate [Iron (65 MG 325 mg PO DAILY@0800 07/23/14 05/10/19 History Elemental)] Furosemide [Lasix] 20 mg PO DAILY@0800 07/23/14 05/10/19 History Cyanocobalamin [Vitamin B-12] 250 mcg PO DAILY@0800 10/18/15 05/10/19 History Hyoscyamine Sulfate [Levsin-Sl] 0.125 mg PO DAILY@0800 10/18/15 05/10/19 History Levothyroxine Sodium [Synthroid] 50 mcg PO DAILY@0800 10/18/15 05/10/19 History Acetaminophen [Tylenol] 500 - 1,000 mg PO Q6H PRN 05/01/17 05/10/19 History Albuterol Inhaler [Ventolin Hfa 2 puff INHALATION RT-Q6H PRN 05/01/17 05/10/19 History Inhaler] Amiodarone HCl [Pacerone] 200 mg PO DAILY@0800 05/01/17 05/10/19 History Artificial Tears-Hypromellose 1 drops BOTH EYES TID PRN 05/01/17 05/10/19 History [Artificial Tear Drops] Donepezil HCl [Aricept] 5 mg PO DAILY@199905/01/17 05/10/19 History Famotidine 40 mg PO DAILY@0805/01/17 05/10/19 History PHENobarbital [Luminal] 48.6 mg PO DAILY@0800 05/01/17 05/10/19 History Potassium Chloride ER [K-Dur 10] 10 mg PO DAILY@0800 05/01/17 05/10/19 History clonazePAM [KlonoPIN] 0.25 mg PO HS@199905/01/17 05/10/19 History Atorvastatin [Lipitor] 40 mg PO HS@199905/20/18 05/10/19 History Loperamide [Imodium] 2 mg PO Q6H PRN 05/20/18 05/10/19 History Magnesium Hydroxide [Milk of 2,400 mg PO BID PRN 05/20/18 05/10/19 History Magnesia] Oyster Calcium 500 mg PO DAILY@0800 05/20/18 05/10/19 History Phenytoin Sodium Extended 100 mg PO BID 05/20/18 05/10/19 History [Dilantin] guaiFENesin [Mucinex] 600 mg PO BID PRN 05/20/18 05/10/19 History guaiFENesin-DM 100-10MG/5ML 10 - 20 ml PO Q4H PRN 05/20/18 05/10/19 History [Robitussin DM] levETIRAcetam [Keppra] 1,000 mg PO DAILY@79905/20/18 05/10/19 History levETIRAcetam [Keppra] 750 mg PO HS@199905/20/18 05/10/19 History Ibuprofen [Motrin Ib] 200 mg PO Q4H PRN 05/10/19 05/10/19 History Metoprolol Tartrate [Lopressor] 12.5 mg PO BID@08,2000 11/03/19 11/03/19 History Sentry Senior Tab 1 tab PO DAILY@0800 05/10/19 05/10/19 History Allergies Allergy/AdvReac Type Severity Reaction Status Date / Time Penicillins Allergy Unknown Verified 05/10/19 11:44 Physical Exam Vitals: Vital Signs Temp Pulse Pulse Resp BP BP Pulse Ox 05/10/19 20:00 99.0 F 92 19 95/54 92 L 05/10/19 18:17 97.6 F 92 20 94/52 92 L 05/10/19 17:34 98.7 F 05/10/19 17:03 94 20 101/61 94 L 05/10/19 15:43 71 18 98/62 92 L 05/10/19 15:00 16 95/73 91 L 05/10/19 14:41 97 18 97/73 92 L 05/10/19 14:33 98 18 97/47 93 L 05/10/19 13:30 93 20 85/69 96 05/10/19 12:11 93 22 103/60 97 05/10/19 10:41 98.9 F 107 H 18 72/47 98 Intake and Output 05/10/19 05/10/19 05/10/19 06:59 14:59 22:59 Other: Weight 74.843 kg Results CBC & Chem 7: 05/10/19 13:04 05/10/19 13:04 Labs: Abnormal Lab Results - Last 24 Hours (Table) 05/10/19 05/10/19 05/10/19 Range/Units 13:04 13:04 13:04 WBC 17.4 H (3.8-10.6) k/uL MCV 107.8 H (80.0-100.0) fL MCHC 30.9 L (31.0-37.0) g/dL Neutrophils # 14.4 H (1.3-7.7) k/uL APTT 21.1 L (22.0-30.0) sec Sodium 168 H* (137-145) mmol/L Chloride 135 H* (98-107) mmol/L BUN 64 H (9-20) mg/dL Creatinine 2.06 H (0.66-1.25) mg/dL Glucose 133 H (74-99) mg/dL Plasma Lactic Acid Bartolome (0.7-2.0) mmol/L AST 66 H (17-59) U/L Creatine Kinase 486 H (55-170) U/L TSH 0.448 L (0.465-4.680) mIU/L Urine Protein (Negative) Urine Blood (Negative) Ur Leukocyte Esterase (Negative) Urine WBC (0-5) /hpf Urine WBC Clumps (None) /hpf Urine Bacteria (None) /hpf Urine Mucus (None) /hpf Ur Barbiturates Screen (NotDetected) 05/10/19 05/10/19 05/10/19 Range/Units 13:04 13:20 17:17 WBC (3.8-10.6) k/uL MCV (80.0-100.0) fL MCHC (31.0-37.0) g/dL Neutrophils # (1.3-7.7) k/uL APTT (22.0-30.0) sec Sodium (137-145) mmol/L Chloride (98-107) mmol/L BUN (9-20) mg/dL Creatinine (0.66-1.25) mg/dL Glucose (74-99) mg/dL Plasma Lactic Acid Bartolome 2.5 H* 2.6 H* (0.7-2.0) mmol/L AST (17-59) U/L Creatine Kinase (55-170) U/L TSH (0.465-4.680) mIU/L Urine Protein 1+ H (Negative) Urine Blood Trace H (Negative) Ur Leukocyte Esterase Large H (Negative) Urine WBC >182 H (0-5) /hpf Urine WBC Clumps Few H (None) /hpf Urine Bacteria Many H (None) /hpf Urine Mucus Many H (None) /hpf Ur Barbiturates Screen Detected H (NotDetected) Microbiology - Last 24 Hours (Table) 05/10/19 13:20 Urine Culture - Preliminary Urine,Voided
[2019-05-10] MEDS: ENOXAPARIN 40 MG/0.4 ML SYRINGE SQ SCH (22:59)
[2019-05-10] MEDS: DEXTROSE 5%-0.45% NACL 1,000 ML IV SCH (23:05)
[2019-05-11] MEDS: DEXTROSE 5%-0.45% NACL 1,000 ML IV SCH ×4 (06:28→23:02)
[2019-05-11] MEDS: LEVOTHYROXINE 50 MCG TAB PO SCH (06:33)
[2019-05-11 06:58] LABS: Basophils # (A) 0.1 k/uL (0-0.2); Basophils % (A) 1 %; Eosinophils # (A) 0.4 k/uL (0-0.7); Eosinophils % (A) 3 %; HCT 37.7 % (39.0-53.0); Hypochromasia Moderate; Lymphocytes # (A) 1.7 k/uL (1.0-4.8); Lymphocytes % (A) 13 %; MCH 32.4 pg (25.0-35.0); MCHC 30.9 g/dL (31.0-37.0); MCV 104.9 fL (80.0-100.0); Macrocytosis Slight; Mean Platelet Volume 6.9; Monocytes # (A) 0.8 k/uL (0-1.0); Monocytes % (A) 6 %; Neutrophils # (A) 10.3 k/uL (1.3-7.7); Neutrophils % (A) 76 %; Platelet Count 276 k/uL (150-450); RBC 3.59 m/uL (4.30-5.90); WBC 13.5 k/uL (3.8-10.6)
[2019-05-11 07:02] LABS: HGB 11.6 gm/dL (13.0-17.5)
[2019-05-11 08:08] LABS: Calcium 7.7 mg/dL (8.4-10.2); Total Bilirubin 0.6 mg/dL (0.2-1.3); Total Protein 6.8 g/dL (6.3-8.2)
[2019-05-11 08:12] LABS: Potassium 4.4 mmol/L (3.5-5.1)
[2019-05-11] MEDS: ENOXAPARIN 40 MG/0.4 ML SYRINGE SQ SCH (10:07)
[2019-05-11] MEDS: PHENYTOIN SODIUM EXTENDED 100 MG CAP PO SCH ×3 (10:07→20:20)
[2019-05-11] MEDS: levETIRAcetam 500 MG TAB PO SCH (10:07)
[2019-05-11] MEDS: FAMOTIDINE 20 MG TAB PO SCH (10:08)
[2019-05-11] MEDS: METOPROLOL TARTRATE 12.5 MG TAB PO SCH ×2 (10:08→20:13)
[2019-05-11] MEDS: AMIODARONE 200 MG TAB PO SCH (10:08)
[2019-05-11] MEDS: clonazePAM 0.5 MG TAB PO SCH ×2 (20:13→20:19)
[2019-05-11] MEDS: DONEPEZIL 5 MG TAB PO SCH ×2 (20:13→20:19)
[2019-05-11] MEDS: ATORVASTATIN 40 MG TAB PO SCH (20:13)
--- NOTE | 2019-05-11 21:56 | P.PN ---
Progress Note - Text Progress Note Date: 05/11/19 Chief Complaint: Week History of presenting complaint: This is a 83-year-old patient of R visiting physician Dr. Chua. Chronic stable medical conditions include developmental delay but dementia, very hard of hearing, seizure disorder, hypothyroid, atrial fibrillation, congestive heart failure. Patient lives at [facility]. Patient unable to give any history. Only makes sounds. Patient was brought in by the staff as patient is not eating drinking. Very lethargic. This has been going on for close to one week. Patient oral intake is also gone down. Patient's can't ever infected appearing urine with elevated white count. Also found to have a sodium 168 and a creatinine of 2.06. Admitted for the same. Admitted with-acute UTI with cystitis asepsis, severe hypernatremia, toxic metabolic encephalopathy, lactic acidosis. Today-patient ate all his breakfast. Then went back to sleep. Getting IV fluids. Sodium is still running high. It may be remembered that patient was not eating anything at all yesterday. Review of systems cannot be done as patient doesn't speak Active Medications Amiodarone HCl (Cordarone) 200 mg PO DAILY@0800 [facility] Last Admin: 05/11/19 10:08 Dose: 200 mg Documented by: Atorvastatin Calcium (Lipitor) 40 mg PO HS@1999 [facility] Last Admin: 05/11/19 20:13 Dose: 40 mg Documented by: Clonazepam (Klonopin) 0.25 mg PO HS@1999 [facility] Last Admin: 05/11/19 20:19 Dose: Not Given Documented by: Donepezil HCl (Aricept) 5 mg PO DAILY@1999 [facility] Last Admin: 05/11/19 20:19 Dose: Not Given Documented by: Enoxaparin Sodium (Lovenox) 40 mg SQ DAILY [facility] Last Admin: 05/11/19 10:07 Dose: 40 mg Documented by: Famotidine (Pepcid) 20 mg PO DAILY@0800 [facility] Last Admin: 05/11/19 10:08 Dose: 20 mg Documented by: Dextrose/Sodium Chloride (Dextrose 5%-1/2ns Iv Soln) 1,000 mls @ 125 mls/hr IV .Q8H [facility] Last Admin: 05/11/19 15:08 Dose: Not Given Documented by: Ceftriaxone Sodium 1 gm/ (Sodium Chloride) 50 mls @ 100 mls/hr IVPB Q24HR [facility] Last Admin: 05/11/19 15:08 Dose: 100 mls/hr Documented by: Levetiracetam (Keppra) 1,000 mg PO DAILY@0800 [facility] Last Admin: 05/11/19 10:07 Dose: 1,000 mg Documented by: Levothyroxine Sodium (Synthroid) 50 mcg PO DAILY@0700 [facility] Last Admin: 05/11/19 06:33 Dose: 50 mcg Documented by: Metoprolol Tartrate (Lopressor) 12.5 mg PO BID@0800,2000 [facility] Last Admin: 05/11/19 20:13 Dose: 12.5 mg Documented by: Phenobarbital (Luminal) 48.6 mg PO DAILY@0800 [facility] Last Admin: 05/11/19 12:25 Dose: 48.6 mg Documented by: Phenytoin Sodium (Dilantin) 100 mg PO BID [facility] Last Admin: 05/11/19 20:20 Dose: Not Given Documented by: Physical examination: VITAL SIGNS: 97.7, 81, 18, 95/54, 90% on 2 L GENERAL: Laying in bed, tired EYES: Pupils equal. Conjunctiva normal. HEENT: [External appearance of nose and ears normal, oral cavity dry NECK: JVD unable to assess; masses not palpable. HEART: First and second heart sounds are normal; no edema. LUNGS: Respiratory rate normal; clear to auscultation. ABDOMEN: Soft, nontender, liver spleen not palpable, no masses palpable. PSYCH: [Laying in bed, confused doesn't talk much unable to assess NEUROLOGICAL: Cranial nerves grossly intact; no facial asymmetry, power and sensation grossly intact. Moving all 4 limbs. Patient only makes sounds INVESTIGATIONS, reviewed in the clinical context: White count 13.5 hemoglobin 11.6 platelets 276 sodium 167 chloride 137 potassium 4.4 bun 53 creatinine 1.53 Previous testing White count 7.4 hemoglobin 15 sodium was 168 chloride 135 bun 64 creatinine 2.06 patient's colostomy and creatinine was 8/0.55 in 2018 May UA positive for leukoesterase WBC Urine tox screen positive for barbiturates lactic acid 2.6 Assessment: -Acute UTI from cystitis causing sepsis, with urine culture being negative -Severe hypernatraemia from dehydration, slow to respond -Severe hyperkalemia, slow to respond -Toxic metabolic encephalopathy from sepsis -Lactic acidosis from above -Developmental delay with advanced dementia -Very hard of hearing -Chronic seizure disorder -Hypothyroid -Persistent atrial fibrillation -Chronic congestive heart failure from systolic dysfunction EF 40-45% Plan: Keep the IV fluids at 125 mL an hour. Repeat electrolytes in the morning. Patient ate his breakfast this morning. Continue with close monitoring. Repeat labs in the morning. IV antibiotic: 1 more day. Did switch to by mouth antibiotic
[2019-05-12] MEDS: LEVOTHYROXINE 50 MCG TAB PO SCH (06:09)
[2019-05-12 06:34] LABS: HCT 34.5 % (39.0-53.0); HGB 10.3 gm/dL (13.0-17.5); Hypochromasia Marked; MCH 32.7 pg (25.0-35.0); MCV 109.3 fL (80.0-100.0); Macrocytosis Marked; Mean Platelet Volume 6.6; Platelet Count 256 k/uL (150-450); RBC 3.15 m/uL (4.30-5.90); RDW 12.8 % (11.5-15.5); WBC 10.6 k/uL (3.8-10.6)
[2019-05-12 06:52] LABS: Calcium 7.1 mg/dL (8.4-10.2); Potassium 3.6 mmol/L (3.5-5.1)
[2019-05-12] MEDS: levETIRAcetam 500 MG TAB PO SCH (10:37)
[2019-05-12] MEDS: AMIODARONE 200 MG TAB PO SCH (10:37)
[2019-05-12] MEDS: METOPROLOL TARTRATE 12.5 MG TAB PO SCH ×2 (10:37→20:17)
[2019-05-12] MEDS: ENOXAPARIN 40 MG/0.4 ML SYRINGE SQ SCH (10:37)
[2019-05-12] MEDS: PHENYTOIN SODIUM EXTENDED 100 MG CAP PO SCH ×2 (10:37→21:06)
[2019-05-12] MEDS: FAMOTIDINE 20 MG TAB PO SCH (10:37)
[2019-05-12] MEDS: DEXTROSE 5%-0.45% NACL 1,000 ML IV SCH ×2 (11:13→20:18)
[2019-05-12] MEDS: clonazePAM 0.5 MG TAB PO SCH (21:05)
[2019-05-12] MEDS: DONEPEZIL 5 MG TAB PO SCH (21:06)
[2019-05-12] MEDS: ATORVASTATIN 40 MG TAB PO SCH (21:06)
--- NOTE | 2019-05-12 21:59 | P.PN ---
Progress Note - Text Progress Note Date: 05/12/19 Chief Complaint: Week History of presenting complaint: This is a 83-year-old patient of R visiting physician Dr. Chua. Chronic stable medical conditions include developmental delay but dementia, very hard of hearing, seizure disorder, hypothyroid, atrial fibrillation, congestive heart failure. Patient lives at [facility]. Patient unable to give any history. Only makes sounds. Patient was brought in by the staff as patient is not eating drinking. Very lethargic. This has been going on for close to one week. Patient oral intake is also gone down. Patient's can't ever infected appearing urine with elevated white count. Also found to have a sodium 168 and a creatinine of 2.06. Admitted for the same. Admitted with-acute UTI with cystitis asepsis, severe hypernatremia, toxic metabolic encephalopathy, lactic acidosis. Today-tired today. Did not eat his breakfast. Awaiting lunch. Getting IV fluids. Laying in bed. Review of systems cannot be done as patient doesn't speak Active Medications Amiodarone HCl (Cordarone) 200 mg PO DAILY@0800 [facility] Last Admin: 05/12/19 10:37 Dose: 200 mg Documented by: Atorvastatin Calcium (Lipitor) 40 mg PO HS@1999 [facility] Last Admin: 05/12/19 21:06 Dose: 40 mg Documented by: Clonazepam (Klonopin) 0.25 mg PO HS@1999 [facility] Last Admin: 05/12/19 21:05 Dose: 0.25 mg Documented by: Donepezil HCl (Aricept) 5 mg PO DAILY@1999 [facility] Last Admin: 05/12/19 21:06 Dose: 5 mg Documented by: Enoxaparin Sodium (Lovenox) 40 mg SQ DAILY [facility] Last Admin: 05/12/19 10:37 Dose: 40 mg Documented by: Famotidine (Pepcid) 20 mg PO DAILY@0800 [facility] Last Admin: 05/12/19 10:37 Dose: 20 mg Documented by: Dextrose/Sodium Chloride (Dextrose 5%-1/2ns Iv Soln) 1,000 mls @ 125 mls/hr IV .Q8H [facility] Last Admin: 05/12/19 20:18 Dose: Not Given Documented by: Ceftriaxone Sodium 1 gm/ (Sodium Chloride) 50 mls @ 100 mls/hr IVPB Q24HR [facility] Last Admin: 05/12/19 10:36 Dose: 100 mls/hr Documented by: Levetiracetam (Keppra) 1,000 mg PO DAILY@0800 [facility] Last Admin: 05/12/19 10:37 Dose: 1,000 mg Documented by: Levothyroxine Sodium (Synthroid) 50 mcg PO DAILY@0700 [facility] Last Admin: 05/12/19 06:09 Dose: 50 mcg Documented by: Metoprolol Tartrate (Lopressor) 12.5 mg PO BID@0800,1999 [facility] Last Admin: 05/12/19 20:17 Dose: Not Given Documented by: Phenobarbital (Luminal) 48.6 mg PO DAILY@0800 [facility] Last Admin: 05/12/19 10:37 Dose: 48.6 mg Documented by: Phenytoin Sodium (Dilantin) 100 mg PO BID [facility] Last Admin: 05/12/19 21:06 Dose: 100 mg Documented by: Physical examination: VITAL SIGNS: 98.2, 80, 14, 90/44, 95% 2 L GENERAL: Laying in bed, EYES: Pupils equal. Conjunctiva normal. HEENT: [External appearance of nose and ears normal, oral cavity dry NECK: JVD unable to assess; masses not palpable. HEART: First and second heart sounds are normal; no edema. LUNGS: Respiratory rate normal; clear to auscultation. ABDOMEN: Soft, nontender, liver spleen not palpable, no masses palpable. PSYCH: Laying in bed, confused doesn't talk much unable to assess NEUROLOGICAL: Cranial nerves grossly intact; no facial asymmetry, power and sensation grossly intact. Moving all 4 limbs. Patient only makes sounds INVESTIGATIONS, reviewed in the clinical context: White count 10.6 hemoglobin 10.3 platelets 256 sodium 160 potassium 3.6 chloride 134 1:30 creatinine 1.09 Previous testing White count 7.4 hemoglobin 15 sodium was 168 chloride 135 bun 64 creatinine 2.06 patient's colostomy and creatinine was 8/0.55 in 2018 May UA positive for leukoesterase WBC Urine tox screen positive for barbiturates lactic acid 2.6 Assessment: -Acute UTI from cystitis causing sepsis, with urine culture being negative -Severe hypernatraemia from dehydration, slow to respond -Severe hyperchloremia, slow to respond -Acute renal failure likely prerenal, improving -Toxic metabolic encephalopathy from sepsis -Lactic acidosis from above -Developmental delay with advanced dementia -Very hard of hearing -Chronic seizure disorder -Hypothyroid -Persistent atrial fibrillation -Chronic congestive heart failure from systolic dysfunction EF 40-45% Plan: Continue with IV fluids. Spoke to the nurse aide All meals are to be assisted. Repeat labs..
[2019-05-12] MEDS: CEPHALEXIN 250 MG CAP PO SCH (23:00)
[2019-05-13] MEDS: DEXTROSE 5%-0.45% NACL 1,000 ML IV SCH ×3 (07:00→18:16)
[2019-05-13 07:54] LABS: Calcium 7.5 mg/dL (8.4-10.2); Potassium 3.7 mmol/L (3.5-5.1)
[2019-05-13] MEDS: PHENYTOIN SODIUM EXTENDED 100 MG CAP PO SCH ×2 (10:01→22:41)
[2019-05-13] MEDS: METOPROLOL TARTRATE 12.5 MG TAB PO SCH ×2 (10:01→22:39)
[2019-05-13] MEDS: levETIRAcetam 500 MG TAB PO SCH (10:01)
[2019-05-13] MEDS: FAMOTIDINE 20 MG TAB PO SCH (10:01)
[2019-05-13] MEDS: AMIODARONE 200 MG TAB PO SCH (10:01)
[2019-05-13] MEDS: CEPHALEXIN 250 MG CAP PO SCH ×4 (10:02→22:41)
[2019-05-13] MEDS: ENOXAPARIN 40 MG/0.4 ML SYRINGE SQ SCH (10:02)
--- NOTE | 2019-05-13 11:10 | P.CRDCN ---
History of Present Illness Consult date: 05/13/19 Requesting physician: Daron Carrington Reason for Consult (text): afib Chief complaint: Weakness History of present illness: This is an 83-year-old gentleman with history of dementia, dev elopmentally delayed, seizure disorder, hypertension, hyperlipidemia, hypothyroidism, paroxysmal atrial fibrillation, he resides in an adult living facility. He was brought to the hospital because they had noticed him to be more weak than usual. Most of the history was obtained from the medical record because of the patient's dementia. Chest x-ray on presentation here showed cardiomegaly, there is probably some scarring or atelectasis at the left lung base. CAT scan of the brain showed moderate diffuse atrophy, no acute intracranial abnormality. Initial EKG on presentation here showed a normal sinus rhythm, subsequently patient went into atrial fibrillation with a rapid ventricular response, he did however not receive his beta griffin or his amiodarone. Patient is not currently on anticoagulation because of history of significant hematuria in combination with his severe dementia. He presents on IV heparin drip. Blood pressure 100/60 this morning, it has been running in the 90 systolic, heart rate at present in the 130 range. White blood cell count on admission 17.4, subsequent 13.5 and 10.6, hemoglobin on admission 15, 10.3 this morning, sodium 1 admission 168, 155 this morning, potassium on admission 5.0, 3.7 this morning, BUN on admission 64 with a creatinine of 2.0, this morning 20 and 0.9. Plasma lactic acid 1.6. Calcium 7.5 magnesium 2.5. Potassium 3.7. TSH level is 0.448. Urinalysis shows positive UTI, toxicology shows positive for barbiturates. At the time of my examination this morning, patient appears to be comfortable, confused. He was able to take his oral amiodarone and beta griffin. Past Medical History Past Medical History: Atrial Fibrillation, Dementia, GERD/Reflux, Hyperlipidemia, Hypertension, Pneumonia, Seizure Disorder, Thyroid Disorder Additional Past Medical History / Comment(s): Hematoma on top of head, [place], wears 2 hearing aides. C5-C6 and T12 fractures. Last seizure was 2 years ago. Hypothyroid. Falls. History of Any Multi-Drug Resistant Organisms: MRSA Date of last positivie culture/infection: 08/29/18 MDRO Source:: HEEL Past Surgical History: Unable to Obtain, Orthopedic Surgery Additional Past Surgical History / Comment(s): Surgery on BL arms. Right knee surgery. Past Anesthesia/Blood Transfusion Reactions: Unable to Obtain Smoking Status: Never smoker - Past Family History Father Family Medical History: Unable to Obtain Mother Family Medical History: Unable to Obtain Medications and Allergies Home Medications Medication Instructions Recorded Confirmed Type Acetaminophen Tab [Tylenol] 500 mg PO TID@0800,1400,199907/23/14 05/10/19 Hi story Cholecalciferol [Vitamin D3 (25 1,000 unit PO DAILY@79907/23/14 05/10/19 History Mcg = 1000 Iu)] Ferrous Sulfate [Iron (65 MG 325 mg PO DAILY@79907/23/14 05/10/19 History Elemental)] Furosemide [Lasix] 20 mg PO DAILY@79907/23/14 05/10/19 History Cyanocobalamin [Vitamin B-12] 250 mcg PO DAILY@79910/18/15 05/10/19 History Hyoscyamine Sulfate [Levsin-Sl] 0.125 mg PO DAILY@79910/18/15 05/10/19 History Levothyroxine Sodium [Synthroid] 50 mcg PO DAILY@79910/18/15 05/10/19 History Acetaminophen [Tylenol] 500 - 1,000 mg PO Q6H PRN 05/01/17 05/10/19 History Albuterol Inhaler [Ventolin Hfa 2 puff INHALATION RT-Q6H PRN 05/01/17 05/10/19 History Inhaler] Amiodarone HCl [Pacerone] 200 mg PO DAILY@79905/01/17 05/10/19 History Artificial Tears-Hypromellose 1 drops BOTH EYES TID PRN 05/01/17 05/10/19 History [Artificial Tear Drops] Donepezil HCl [Aricept] 5 mg PO DAILY@199905/01/17 05/10/19 History Famotidine 40 mg PO DAILY@79905/01/17 05/10/19 History PHENobarbital [Luminal] 48.6 mg PO DAILY@0805/01/17 05/10/19 History Potassium Chloride ER [K-Dur 10] 10 mg PO DAILY@0805/01/17 05/10/19 History clonazePAM [KlonoPIN] 0.25 mg PO HS@199905/01/17 05/10/19 History Atorvastatin [Lipitor] 40 mg PO HS@199905/20/18 05/10/19 History Loperamide [Imodium] 2 mg PO Q6H PRN 05/20/18 05/10/19 History Magnesium Hydroxide [Milk of 2,400 mg PO BID PRN 05/20/18 05/10/19 History Magnesia] Oyster Calcium 500 mg PO DAILY@0800 05/20/18 05/10/19 History Phenytoin Sodium Extended 100 mg PO BID 05/20/18 05/10/19 History [Dilantin] guaiFENesin [Mucinex] 600 mg PO BID PRN 05/20/18 05/10/19 History guaiFENesin-DM 100-10MG/5ML 10 - 20 ml PO Q4H PRN 05/20/18 05/10/19 History [Robitussin DM] levETIRAcetam [Keppra] 1,000 mg PO DAILY@0800 05/20/18 05/10/19 History levETIRAcetam [Keppra] 750 mg PO HS@199905/20/18 05/10/19 History Ibuprofen [Motrin Ib] 200 mg PO Q4H PRN 05/10/19 05/10/19 History Metoprolol Tartrate [Lopressor] 12.5 mg PO BID@0800,199905/10/19 05/10/19 History Sentry Senior Tab 1 tab PO DAILY@0800 05/10/19 05/10/19 History Allergies Allergy/AdvReac Type Severity Reaction Status Date / Time Penicillins Allergy Unknown Verified 05/10/19 11:44 Physical Exam Vitals: Vital Signs Temp Pulse Resp BP Pulse Ox 05/13/19 04:00 98.4 F 73 19 91/44 94 L 05/13/19 00:00 98.0 F 77 18 92/51 96 05/12/19 20:00 98.3 F 80 19 86/48 97 05/12/19 16:00 97.7 F 77 19 89/49 92 L 05/12/19 13:00 89/62 05/12/19 12:00 62 22 77/41 88 L Intake and Output 11/11/2305/13/19 05/13/19 22:59 06:59 14:59 Intake Total 750 Output Total 750 Balance 0 Intake: Intake, IV Titration 750 Amount Dextrose 5%-0.45% NaCl 1, 750 000 ml @ 125 mls/hr IV . Q8H [facility] Rx#:[id number] Output: Urine 750 Other: Voiding Method Indwelling Catheter Indwelling Catheter # Voids 3 Weight 73.6 kg PHYSICAL EXAMINATION: GENERAL: 82-year-old gentleman in no acute distress at the time of my examination HEENT: Head is atraumatic, normocephalic. Pupils equal, round. Sclera anicteric. Conjunctiva are clear. Mucous membranes of the mouth are moist. Neck is supple. There is no elevated jugular venous pressure. No carotid bruit is heard. HEART EXAMINATION: Heart S1 and S2 irregularly irregular CHEST EXAMINATION: Lungs are clear to auscultation and precussion. No chest wall tenderness is noted on palpation or with deep breathing. ABDOMEN: Soft, nontender. Bowel sounds are heard. No organomegaly noted. Patient does have a Harvey catheter in place, there is evidence of hematuria, and bleeding at catheter insertion area. EXTREMITIES: 2+ peripheral pulses with 1+ evidence of peripheral edema and no calf tenderness noted. Bilateral foot boots in place NEUROLOGIC [patient is awake, confused. Results 05/12/19 06:15 05/13/19 06:39 Comprehensive Metabolic Panel 05/13/19 Range/Units 06:39 Sodium 155 H (137-145) mmol/L Potassium 3.7 (3.5-5.1) mmol/L Chloride 130 H (98-107) mmol/L Carbon Dioxide 19 L (22-30) mmol/L BUN 20 (9-20) mg/dL Creatinine 0.96 (0.66-1.25) mg/dL Glucose 91 (74-99) mg/dL Calcium 7.5 L (8.4-10.2) mg/dL Current Medications Generic Name Dose Route Start Last Admin Trade Name Freq PRN Reason Stop Dose Admin Amiodarone HCl 200 mg 05/11/19 08:00 05/13/19 10:01 Cordarone PO 200 mg DAILY@0800 [facility] Administration Atorvastatin Calcium 40 mg 05/10/19 20:00 05/12/19 21:06 Lipitor PO 40 mg HS@2000 [facility] Administration Cephalexin 250 mg 05/12/19 22:00 05/13/19 10:02 Keflex PO 250 mg QID [facility] Administration Clonazepam 0.25 mg 05/10/19 20:00 05/12/19 21:05 Klonopin PO 0.25 mg HS@1999 [facility] Administration Donepezil HCl 5 mg 05/10/19 20:00 05/12/19 21:06 Aricept PO 5 mg DAILY@1999 [facility] Administration Enoxaparin Sodium 40 mg 05/10/19 22:45 05/13/19 10:02 Lovenox SQ 40 mg DAILY [facility] Administration Famotidine 20 mg 05/11/19 08:00 05/13/19 10:01 Pepcid PO 20 mg DAILY@0800 [facility] Administration Dextrose/Sodium Chloride 1,000 mls @ 125 mls/hr 05/10/19 22:45 05/13/19 07:00 Dextrose 5%-1/2ns Iv Soln IV Not Given .Q8H [facility] Levetiracetam 1,000 mg 05/11/19 08:00 05/13/19 10:01 Keppra PO 1,000 mg DAILY@0800 [facility] Administration Levothyroxine Sodium 50 mcg 05/13/19 08:15 Synthroid PO DAILY@0630 [facility] Metoprolol Tartrate 12.5 mg 05/10/19 20:00 05/13/19 10:01 Lopressor PO 12.5 mg BID@0800 [facility] Administration Phenobarbital 48.6 mg 05/11/19 08:00 05/13/19 10:01 Luminal PO 48.6 mg DAILY@0800 [facility] Administration Phenytoin Sodium 100 mg 05/10/19 21:00 05/13/19 10:01 Dilantin PO 100 mg BID [facility] Administration Intake and Output 05/12/19 05/13/19 05/13/19 22:59 06:59 14:59 Intake Total 750 Output Total 750 Balance 0 Intake: Intake, IV Titration 750 Amount Dextrose 5%-0.45% NaCl 1, 750 000 ml @ 125 mls/hr IV . Q8H [facility] Rx#:[id number] Output: Urine 750 Other: Voiding Method Indwelling Catheter Indwelling Catheter # Voids 3 Weight 73.6 kg 05/12/19 06:15 05/13/19 06:39 EKG Interpretations (text) Initial EKG shows normal sinus rhythm, subsequent EKG shows atrial fibrillation with a rapid ventricular response Assessment and Plan Plan: Assessment and plan #1 weakness, evidence of hypernatremia and acute renal failure on admission #2 anemia, hemoglobin 15 on admission, 10.3 this morning. 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 We will discontinue the IV heparin, patient is noted to have a significant drop in hemoglobin. Hold the or al amiodarone and start the patient on a drip. Continue beta griffin. Obtain echo. DNP note has been reviewed, I agree with a documented findings and plan of care. Patient was seen and examined.
[2019-05-13] MEDS ORDERED: DEXTROSE 5% IN WATER 100 ML with AMIODARONE 150 MG IV ONE (11:30)
[2019-05-13] MEDS ORDERED: AMIODARONE 360 MG in DEXTROSE 5% IN WATER 200 ML IV ONE ×2 (11:40)
[2019-05-13] MEDS: LEVOTHYROXINE 50 MCG TAB PO SCH (17:32)
[2019-05-13] MEDS: AMIODARONE 300 MG in DEXTROSE 5% IN WATER 250 ML IV SCH ×2 (18:14)
--- NOTE | 2019-05-13 22:23 | P.PN ---
Progress Note - Text Progress Note Date: 05/13/19 Chief Complaint: Week History of presenting complaint: This is a 83-year-old patient of R visiting physician Dr. Chua. Chronic stable medical conditions include developmental delay but dementia, very hard of hearing, seizure disorder, hypothyroid, atrial fibrillation, congestive heart failure. Patient lives at [facility] adult assisted [facility]. Patient unable to give any history. Only makes sounds. Patient was brought in by the staff as patient is not eating drinking. Very lethargic. This has been going on for close to one week. Patient oral intake is also gone down. Patient's can't ever infected appearing urine with elevated white count. Also found to have a sodium 168 and a creatinine of 2.06. Admitted for the same. Admitted with-acute UTI with cystitis asepsis, severe hypernatremia, toxic metabolic encephalopathy, lactic acidosis. Today-patient today went into A. fib with rapid ventricular rate. Cardiology was consulted. Patient's was put on amiodarone drip. Early this afternoon patient went back into to sinus rhythm. There was some concern about patient choking/aspirating his speech therapy was consulted earlier today. Patient was made nothing by mouth. Except for meds. Review of systems cannot be done as patient doesn't speak Active Medications Atorvastatin Calcium (Lipitor) 40 mg PO HS@1999 [facility] Last Admin: 05/12/19 21:06 Dose: 40 mg Documented by: Cephalexin (Keflex) 250 mg PO QID [facility] Last Admin: 05/13/19 18:16 Dose: Not Given Documented by: Clonazepam (Klonopin) 0.25 mg PO HS@1999 [facility] Last Admin: 05/12/19 21:05 Dose: 0.25 mg Documented by: Donepezil HCl (Aricept) 5 mg PO DAILY@1999 [facility] Last Admin: 05/12/19 21:06 Dose: 5 mg Documented by: Famotidine (Pepcid) 40 mg PO DAILY@0800 [facility] Dextrose/Sodium Chloride (Dextrose 5%-1/2ns Iv Soln) 1,000 mls @ 125 mls/hr IV .Q8H [facility] Last Admin: 05/13/19 18:16 Dose: 125 mls/hr Documented by: Amiodarone HCl 300 mg/ (Dextrose/Water) 250 mls @ 25 mls/hr IV .Q10H [facility]; Protocol Stop: 05/14/19 11:39 Last Admin: 05/13/19 18:14 Dose: 0.5 mg/min, 25 mls/hr Documented by: Levetiracetam (Keppra) 1,000 mg PO DAILY@0800 [facility] Last Admin: 05/13/19 10:01 Dose: 1,000 mg Documented by: Levothyroxine Sodium (Synthroid) 50 mcg PO DAILY@0630 [facility] Last Admin: 05/13/19 17:32 Dose: 50 mcg Documented by: Metoprolol Tartrate (Lopressor) 12.5 mg PO BID@0800,2000 [facility] Last Admin: 05/13/19 10:01 Dose: 12.5 mg Documented by: Phenobarbital (Luminal) 48.6 mg PO DAILY@0800 [facility] Last Admin: 05/13/19 10:01 Dose: 48.6 mg Documented by: Phenytoin Sodium (Dilantin) 100 mg PO BID [facility] Last Admin: 05/13/19 10:01 Dose: 100 mg Documented by: Physical examination: VITAL SIGNS: 98.4, 73, 19, 81/44, 94% on 3 L GENERAL: Laying in bed, EYES: Pupils equal. Conjunctiva normal. HEENT: [External appearance of nose and ears normal, oral cavity dry NECK: JVD unable to assess; masses not palpable. HEART: First and second heart sounds are normal; no edema. LUNGS: Respiratory rate normal; clear to auscultation. ABDOMEN: Soft, nontender, liver spleen not palpable, no masses palpable. PSYCH: Laying in bed, confused doesn't talk much unable to assess NEUROLOGICAL: Cranial nerves grossly intact; no facial asymmetry, power and sensation grossly intact. Moving all 4 limbs. Patient only makes sounds INVESTIGATIONS, reviewed in the clinical context: Sodium 155 chloride 1:30 creatinine 0.96 magnesium 2.5 Previous testing White count 7.4 hemoglobin 15 sodium was 168 chloride 135 bun 64 creatinine 2.06 patient's colostomy and creatinine was 8/0.55 in 2018 May UA positive for leukoesterase WBC Urine tox screen positive for barbiturates lactic acid 2.6 Assessment: -Acute UTI from cystitis causing sepsis, with urine culture being negative -Severe hypernatraemia from dehydration, slow to respond -Severe hyperchloremia, slow to respond -Acute renal failure likely prerenal, corrected -Toxic metabolic encephalopathy from sepsis -Lactic acidosis from above -Developmental delay with advanced dementia -Very hard of hearing -Chronic seizure disorder -Hypothyroid -Persistent atrial fibrillation -Chronic congestive heart failure from systolic dysfunction EF 40-45% -Concerned about aspiration because of altered mental status being followed by speech therapist. -New onset paroxysmal atrial fibrillation with rapid ventricular rate now back in sinus rhythm Plan: Continue with IV fluids. Patient has been made nothing by mouth. Speech therapy was consulted. Patient is put on IV amiodarone drip. Cardiology was consulted. Patient back in sinus rhythm. On telemetry.
[2019-05-13] MEDS: ATORVASTATIN 40 MG TAB PO SCH (22:39)
[2019-05-13] MEDS: clonazePAM 0.5 MG TAB PO SCH (22:40)
[2019-05-13] MEDS: DONEPEZIL 5 MG TAB PO SCH (22:40)
[2019-05-14] MEDS: AMIODARONE 300 MG in DEXTROSE 5% IN WATER 250 ML IV SCH ×4 (04:20→16:31)
[2019-05-14] MEDS: LEVOTHYROXINE 50 MCG TAB PO SCH (06:33)
[2019-05-14] MEDS: DEXTROSE 5%-0.45% NACL 1,000 ML IV SCH ×3 (06:36→20:05)
[2019-05-14 06:48] LABS: African American GFR (CKD) >90 (>60 ml/min/1.73 sqM); Anion Gap 7 mmol/L; Blood Urea Nitrogen 15 mg/dL (9-20); Calcium 7.6 mg/dL (8.4-10.2); Carbon Dioxide 21 mmol/L (22-30); Chloride 121 mmol/L (98-107); Glucose 135 mg/dL (74-99); Potassium 3.2 mmol/L (3.5-5.1); Sodium 149 mmol/L (137-145)
--- NOTE | 2019-05-14 10:30 | P.PN ---
Subjective Progress Note Date: 05/14/19 his is an 83-year-old gentleman with history of dementia, developmentally delayed, seizure disorder, hypertension, hyperlipidemia, hypothyroidism, paroxysmal atrial fibrillation, he resides in an adult living facility. He was brought to the hospital because they had noticed him to be more weak than usual. Most of the history was obtained from the medical record because of the patient's dementia. Chest x-ray on presentation here showed cardiomegaly, there is probably some scarring or atelectasis at the left lung base. CAT scan of the brain showed moderate diffuse atrophy, no acute intra cranial abnormality. Initial EKG on presentation here showed a normal sinus rhythm, subsequently patient went into atrial fibrillation with a rapid ventricular response, he did however not receive his beta griffin or his amiodarone. Patient is not currently on anticoagulation because of history of significant hematuria in combination with his severe dementia. He presents on IV heparin drip. Blood pressure 100/60 this morning, it has been running in the 90 systolic, heart rate at present in the 130 range. White blood cell count on admission 17.4, subsequent 13.5 and 10.6, hemoglobin on admission 15, 10.3 this morning, sodium 1 admission 168, 155 this morning, potassium on admission 5.0, 3.7 this morning, BUN on admission 64 with a creatinine of 2.0, this morning 20 and 0.9. Plasma lactic acid 1.6. Calcium 7.5 magnesium 2.5. Potassium 3.7. TSH level is 0.448. Urinalysis shows positive UTI, toxicology shows positive for barbiturates. At the time of my examination this morning, patient appears to be comfortable, confused. He was able to take his oral amiodarone and beta griffin. 05/14/2019 Patient seen and examined this morning, continues to be in atrial fibrillation, heart rate in the 80s. Blood pressure 105/50, 93% on 3 L of oxygen. He is unable to take oral medications today, continues to be on amiodarone drip at 0.5. Sodium 149, potassium 3.2, chloride 121, CO2 21, BUN 15, creatinine 0.9. Echocardiogram with Doppler study remains pending. Objective - Vital Signs Vital signs: Vital Signs Temp 97.9 F 05/14/19 03:43 Pulse 77 05/14/19 03:43 Resp 19 05/14/19 03:43 BP 105/53 05/14/19 03:43 Pulse Ox 96 05/14/19 03:43 Intake & Output 05/13/19 05/14/19 05/14/19 18:59 06:59 18:59 Intake Total 180 27471 Output Total 600 800 750 Balance -420 9650 -750 Weight 73.6 kg 73.5 kg Intake: Intake, IV Titration 24180 Amount Amiodarone 300 mg In 450 Dextrose 5% in Water 250 ml @ 0.5 MG/MIN 25 mls/hr IV .Q10H [facility] Rx#: [id number] Dextrose 5%-0.45% NaCl 1, 64833 000 ml @ 125 mls/hr IV . Q8H [facility] Rx#:[id number] Oral 180 Output: Urine 600 800 750 Stool 0 0 Other: Voiding Method Indwelling Catheter Indwelling Catheter # Voids 0 - Exam PHYSICAL EXAMINATION: GENERAL: 82-year-old gentleman in no acute distress at the time of my examination HEENT: Head is atraumatic, normocephalic. Pupils equal, round. Sclera anicteric. Conjunctiva are clear. Mucous membranes of the mouth are moist. Neck is supple. There is no elevated jugular venous pressure. No carotid bruit is heard. HEART EXAMINATION: Heart S1 and S2 irregularly irregular CHEST EXAMINATION: Lungs are clear to auscultation and precussion. No chest wall tenderness is noted on palpation or with deep breathing. ABDOMEN: Soft, nontender. Bowel sounds are heard. No organomegaly noted. Patient does have a Harvey catheter in place, there is evidence of hematuria, and bleeding at catheter insertion area. EXTREMITIES: 2+ peripheral pulses with 1+ evidence of peripheral edema and no calf tenderness noted. Bilateral foot boots in place NEUROLOGIC [patient is awake, confused. - Labs CBC & Chem 7: 05/12/19 06:15 05/14/19 06:07 Labs: Abnormal Lab Results - Last 24 Hours (Table) 05/13/19 05/14/19 Range/Units 06:39 06:07 Sodium 149 H (137-145) mmol/L Potassium 3.2 L (3.5-5.1) mmol/L Chloride 121 H (98-107) mmol/L Carbon Dioxide 21 L (22-30) mmol/L Glucose 135 H (74-99) mg/dL Calcium 7.6 L (8.4-10.2) mg/dL Magnesium 2.5 H (1.6-2.3) mg/dL Microbiology - Last 24 Hours (Table) 05/10/19 12:53 Blood Culture - Preliminary Blood No Growth after 72 hours Assessment and Plan Plan: Assessment and plan #1 weakness, evidence of hypernatremia and acute renal failure on admission #2 anemia, hemoglobin 15 on admission, 10.3 this morning. 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 Echocardiogram with Doppler study remains pending. We will continue amiodarone 0.5 by IV is not currently taking oral. DNP note has been reviewed, I agree with a documented findings and plan of care. Patient was seen and examined.
[2019-05-14] MEDS: levETIRAcetam 500 MG TAB PO SCH (11:20)
[2019-05-14] MEDS: FAMOTIDINE 20 MG TAB PO SCH (11:20)
[2019-05-14] MEDS: CEPHALEXIN 250 MG CAP PO SCH ×4 (11:21→19:53)
[2019-05-14] MEDS: PHENYTOIN SODIUM EXTENDED 100 MG CAP PO SCH ×2 (11:21→19:53)
[2019-05-14] MEDS: METOPROLOL TARTRATE 12.5 MG TAB PO SCH ×2 (11:21→19:53)
--- NOTE | 2019-05-14 14:34 | CT ---
"EXAMINATION TYPE: CT brain wo con DATE OF EXAM: 05/14/2019 HISTORY: AMS. CT DLP: 3114.4 mGycm. Automated Exposure Control for Dose Reduction was Utilized. TECHNIQUE: CT scan of the head is performed without contrast. COMPARISON: CT brain 4 days ago.. FINDINGS: Exam suboptimal due to severe kyphosis making evaluation of the inferior frontal lobes sub optimal There is no acute intracranial hemorrhage or midline shift identified. There is diffuse ventr icular and sulcal prominence consistent with diffuse age-related cerebral atrophy. Findings most pro minent over the bilateral high frontal parietal lobes. Fairly significant bilateral temporal lobe atr ophy is present. There is low-attenuation in the periventricular white matter consistent with chronic small vessel ischemic change. There is suggestion of shaw-white matter blurring inferior right front al lobe consistent with evolving acute/subacute infarct for reference image 13 series 3022. Thickenin g of the calvarium over the high frontal lobes bilaterally. Patchy opacification mucosal thickening t hroughout the paranasal sinuses most prominent involving visualized portion of bilateral sphenoid sin uses. Scleral consultation both globes is present. IMPRESSION: No acute intracranial hemorrhage or midline shift. There is fairly moderate to severe d iffuse age-related cerebral atrophy and mild to moderate chronic small vessel ischemic change redemon strated. Suboptimal study with suspicion for acute/subacute evolving infarct inferior right frontal lobe. Correlate clinically. A Yellow level critical message alert has been initiated for Daron Carrington MD via the [employer] 36 0 | Critical Results System on 05/14/2019 2:32 PM. This message alert has been sent to Daron Carrington MD via the preferences provided by the clinician for the receipt of Radiology Critical Findings. [facility] ID [id number]."
[2019-05-14] MEDS: levETIRAcetam IV 1,000 MG in SALINE 1 100ML.BAG IVPB SCH (17:37)
[2019-05-14] MEDS: DONEPEZIL 5 MG TAB PO SCH (19:53)
[2019-05-14] MEDS: clonazePAM 0.5 MG TAB PO SCH (19:53)
[2019-05-14] MEDS: ATORVASTATIN 40 MG TAB PO SCH (19:53)
[2019-05-14 20:39] VITALS: RESP 18
--- NOTE | 2019-05-14 22:18 | P.PN ---
Progress Note - Text Progress Note Date: 05/14/19 Chief Complaint: Weak History of presenting complaint: This is a 83-year-old patient of R visiting physician Dr. Chua. Chronic stable medical conditions include developmental delay but dementia, very hard of hearing, seizure disorder, hypothyroid, atrial fibrillation, congestive heart failure. Patient lives at [facility]. Patient unable to give any history. Only makes sounds. Patient was brought in by the staff as patient is not eating drinking. Very lethargic. This has been going on for close to one week. Patient oral intake is also gone down. Patient's can't ever infected appearing urine with elevated white count. Also found to have a sodium 168 and a creatinine of 2.06. Admitted for the same. Admitted with-acute UTI with cystitis asepsis, severe hypernatremia, toxic metabolic encephalopathy, lactic acidosis. On May 13 patient went to A. fib with rapid ventricle rate then reverted back to sinus rhythm. Was put on IV Medrol. Today-patient remained lethargic today. Not really wanted to eat. Was seen by speech. Made nothing by mouth. I did order a computed tomography scan of the brain without contrast. Did come back showing possible evolving right frontal lobe stroke. The timing of the stroke could not be made. Review of systems cannot be done as patient doesn't communicate Active Medications Atorvastatin Calcium (Lipitor) 40 mg PO HS@1999 [facility] Last Admin: 05/14/19 19:53 Dose: Not Given Documented by: Cephalexin (Keflex) 250 mg PO QID [facility] Last Admin: 05/14/19 19:53 Dose: Not Given Documented by: Clonazepam (Klonopin) 0.25 mg PO HS@1999 [facility] Last Admin: 05/14/19 19:53 Dose: Not Given Documented by: Donepezil HCl (Aricept) 5 mg PO DAILY@1999 [facility] Last Admin: 05/14/19 19:53 Dose: Not Given Documented by: Famotidine (Pepcid) 40 mg PO DAILY@0800 [facility] Last Admin: 05/14/19 11:20 Dose: Not Given Documented by: Dextrose/Sodium Chloride (Dextrose 5%-1/2ns Iv Soln) 1,000 mls @ 125 mls/hr IV .Q8H [facility] Last Admin: 05/14/19 20:05 Dose: 125 mls/hr Documented by: Amiodarone HCl 300 mg/ (Dextrose/Water) 250 mls @ 25 mls/hr IV .Q10H [facility]; Protocol Last Admin: 05/14/19 16:31 Dose: 0.5 mg/min, 25 mls/hr Documented by: Levetiracetam 1,000 mg/ IV (Solution) 100 mls @ 400 mls/hr IVPB DAILY [facility] Last Admin: 05/14/19 17:37 Dose: 400 mls/hr Documented by: Levothyroxine Sodium (Synthroid) 50 mcg PO DAILY@0630 [facility] Last Admin: 05/14/19 06:33 Dose: Not Given Documented by: Metoprolol Tartrate (Lopressor) 12.5 mg PO BID@0800,2000 [facility] Last Admin: 05/14/19 19:53 Dose: Not Given Documented by: Phenobarbital (Luminal) 48.6 mg PO DAILY@0800 [facility] Last Admin: 05/14/19 11:21 Dose: Not Given Documented by: Phenytoin Sodium (Dilantin) 100 mg PO BID [facility] Last Admin: 05/14/19 19:53 Dose: Not Given Documented by: Physical examination: VITAL SIGNS: 97.9, 77, 19, 105/53, 93% room air GENERAL: Laying in bed, not really communicative EYES: Pupils equal. Conjunctiva normal. HEENT: [External appearance of nose and ears normal, oral cavity dry NECK: JVD unable to assess; masses not palpable. HEART: First and second heart sounds are normal; no edema. LUNGS: Respiratory rate normal; clear to auscultation. ABDOMEN: Soft, nontender, liver spleen not palpable, no masses palpable. PSYCH: Laying in bed, confused doesn't talk much unable to assess NEUROLOGICAL: Cranial nerves grossly intact; no facial asymmetry, unable to a ssess further. INVESTIGATIONS, reviewed in the clinical context: Sodium 149 potassium 3.2 chloride 121 creatinine 0.9 Computed tomography scan brain-evolving right frontal lobe stroke/subacute Previous testing White count 7.4 hemoglobin 15 sodium was 168 chloride 135 bun 64 creatinine 2.06 patient's colostomy and creatinine was 8/0.55 in 2017 UA positive for leukoesterase WBC Urine tox screen positive for barbiturates lactic acid 2.6 Assessment: -Acute UTI from cystitis causing sepsis, with urine culture being negative -Severe hypernatraemia from dehydration, improved -Severe hyperchloremia, slow to respond -Acute renal failure likely prerenal, corrected -Acute stroke in the right frontal lobe, onset cannot be determined -Toxic metabolic encephalopathy from sepsis -Lactic acidosis from above -Developmental delay with advanced dementia -Very hard of hearing -Chronic seizure disorder -Hypothyroid -Persistent atrial fibrillation -Chronic congestive heart failure from systolic dysfunction EF 40-45% -Concerned about aspiration because of altered mental status being followed by speech therapist. -New onset paroxysmal atrial fibrillation with rapid ventricular rate now back in sinus rhythm Plan: I ordered a computed tomography scan of the brain. Found to have an evolving stroke in the right frontal lobe. Neurology was consulted. Prognosis is guarded. Because of high risk of aspiration patient was made nothing by mouth by speech therapy. Advanced care planning: -Meeting was held with patient's sister and her . Also the notes from visiting physicians were present. They understand that patient prognosis is guarded. Patient [id number] has not been good. Per patient's wishes. He does not want any form of artificial feeding. They understand that patient at this point is not safe to take anything by mouth. They wished the patient to go back to his place with hospice tomorrow. In the meantime if patient becomes symptomatic in detail. Home device will try to see patient if qualifies for inpatient hospice. [facility]. Questions were answered. Total time spent was about 25 minutes with this.
[2019-05-15] MEDS: LEVOTHYROXINE 50 MCG TAB PO SCH (05:02)
[2019-05-15] MEDS: DEXTROSE 5%-0.45% NACL 1,000 ML IV SCH ×2 (05:33→15:45)
[2019-05-15] MEDS: AMIODARONE 300 MG in DEXTROSE 5% IN WATER 250 ML IV SCH ×4 (05:33→15:45)
[2019-05-15 07:36] LABS: African American GFR (CKD) >90 (>60 ml/min/1.73 sqM); Anion Gap 7 mmol/L; Blood Urea Nitrogen 11 mg/dL (9-20); Calcium 7.3 mg/dL (8.4-10.2); Carbon Dioxide 22 mmol/L (22-30); Chloride 116 mmol/L (98-107); Glucose 136 mg/dL (74-99); Potassium 3.1 mmol/L (3.5-5.1); Sodium 145 mmol/L (137-145)
[2019-05-15] MEDS ORDERED: POTASSIUM CHLORIDE ER 20 MEQ TAB.ER PO STA (08:55)
--- NOTE | 2019-05-15 10:35 | PN ---
PROGRESS NOTE Froylan is an 83-year-old gentleman who has dementia, seizure disorder, atrial fibrillation and congestive heart failure. He is admitted to hospital with chronic systolic heart failure and persistent atrial fibrillation. The patient has severe hypernatremia and renal failure. The patient is having an EEG this morning. His exam shows that the vital signs are stable. The rest of his exam is unchanged. The patient is currently on Keflex, Lipitor, IV amiodarone as he is not able to take much orally and Lopressor 12.5 b.i.d. LABS: Labs show a potassium of 3.1, creatinine is 0.7. ASSESSMENT: 1. Chronic systolic heart failure. 2. Persistent atrial fibrillation with controlled ventricular rate. PLAN: Continue the IV amiodarone, supplement the potassium. MMODL / IJN: [id number] /
[2019-05-15 11:05] VITALS: TEMP 97.4
[2019-05-15 11:11] VITALS: BMI 29.0
[2019-05-15] MEDS ORDERED: ASPIRIN 81 MG PO SCH (12:30)
--- NOTE | 2019-05-15 12:50 | P.CNNES ---
History of Present Illness Consult date: 05/15/19 Reason for Consult: CT head showing a right frontal lobe stroke History of Present Illness: HISTORY OF PRESENT ILLNESS: Thank you for allowing me to evaluate Mr. Froylan Mcclelland. Mr. Mcclelland is an 83 year-old man with PMHx of atrial fibrillation, dementia, GERD, hyperlipidemia, hypertension, seizure disorder, hypothyroidism, C5-6 fracture, T12 fracture, hearing impairment, who presented to [facility] on 05/09/2019 for altered mental status, consulting Neurology for CT head finding of R frontal stroke. Patient lives in a assisted. Difficult to get history from patient. appears that patient is very difficult of hearing. PAST MEDICAL HISTORY: atrial fibrillation, dementia, GERD, hyperlipidemia, hypertension, seizure disorder, hypothyroidism, C5-6 fracture, T12 fracture, hearing impairment PAST SURGICAL HISTORY: Surgery on bilateral arms. Right knee surgery HOME MEDICATIONS: Furosemide, ferrous sulfate, vitamin D, vitamin B12, levothyroxine, hyoscyamine, potassium chloride, phenobarb, famotidine, omeprazole, clonazepam, amiodarone, atorvastatin, Keppra, phenytoin, metoprolol CURRENT INPATIENT MEDICATIONS: Keppra 1 g daily ALLERGIES: Penicillin SOCIAL HISTORY: Never smoker REVIEW OF SYSTEMS: The 14 systems are reviewed and no additional points are identified compared to the review of systems documented history and physical PHYSICAL EXAMINATION: VITAL SIGNS: T 98.7 HR 94 RR 16 BP 99/52 O2 sat 90% on 2L O2 via NC GEN.: NAD, eyes closed at all times, says various phrases incoherently HEENT: NCAT, sclera without icterus NECK: Supple SKIN AND EXTREMITIES: Warm to touch, b/l LE very tight NEURO: MENTAL STATUS: Says "ouch" many times CRANIAL NERVES II THROUGH XII: II: Pupils are equal but minimally reactive. No afferent pupillary defect. Visual hurley are intact. III, IV, : No ptosis. Extraocular movements full. No nystagmus. V: Facial sensation intact from V1-3. VII. No clear facial asymmetry. VIII: Hearing intact to finger rub bilaterally. IX, X: Symmetric palate elevation. XI: Shoulder shrug intact. XII: Tongue midline without fasciculation or atrophy. MOTOR: Normal bulk/tone. No pronator drift or tremor. Moves b/l UE spontaneously. Minimal movement of b/l LE SENSORY: Grimaces to pain in all 4 extremities REFLEXES: 2+ throughout. Toes are downgoing. No clonus. Sanjana's is absent COORDINATION/GAIT: unable to assess DIAGNOSTIC TESTING: LABORATORY: 05/12/19: WBC 10.6 hemoglobin 10.3 platelet 256 05/15/2019: Sodium 145 potassium 3.1 chloride 116 bicarb 22 BUN 11 creatinine 0.78 glucose 136 TSH: 0.448 free T4 0.98 TC 171 LDL 100 HDL 54 TG 85 IMAGING: CT head without contrast 05/14/2019: No acute intracranial hemorrhage or midline shift. There is fairly moderate to severe diffuse age-related cerebral atrophy and mild to moderate chronic small vessel ischemic change with demonstrated. Suboptimal study with suspicion for acute/subacute evolving infarct inferior right frontal lobe. EKG: atrial fibrillation ASSESSMENT: 83 year-old man with PMHx of atrial fibrillation, dementia, GERD, hyperlipidemia, hypertension, seizure disorder, hypothyroidism, C5-6 fracture, T12 fracture, hearing impairment, who presented to [facility] on 05/09/2019 for altered mental status, consulting Neurology for CT head finding of R frontal stroke. Patient with hx of atrial fibrillation, but patient not on anticoagulation at this time or at home. Patient with known etiology of stroke, high risk, needs to be on anticoagulation RECOMMENDATIONS: 1. MRI brain without contrast 2. Carotid Doppler 3. anticoagulation, Xarelto or Eliquis, primary team to decide 4. Continue with Atorvastatin 80mg qhs 5. PT/OT/ST per protocol 6. Neurology will continue to follow 7. Neurology is not available over the weekend in-house. However, feel free to [employer] message me over the weekend if you have any questions or concerns 8. Patient needs to follow up with neurologist as outpatient with her 1-2 weeks of discharge Past Medical History Past Medical History: Atrial Fibrillation, Dementia, GERD/Reflux, Hyperlipidemia, Hypertension, Pneumonia, Seizure Disorder, Thyroid Disorder Additional Past Medical History / Comment(s): Hematoma on top of head, [place], wears 2 hearing aides. C5-C6 and T12 fractures. Last seizure was 2 years ago. Hypothyroid. Falls. History of Any Multi-Drug Resistant Organisms: MRSA Date of last positivie culture/infection: 08/29/18 MDRO Source:: HEEL Past Surgical History: Unable to Obtain, Orthopedic Surgery Additional Past Surgical History / Comment(s): Surgery on BL arms. Right knee surgery. Past Anesthesia/Blood Transfusion Reactions: Unable to Obtain Smoking Status: Never smoker - Past Family History Father Family Medical History: Unable to Obtain Mother Family Medical History: Unable to Obtain Medications and Allergies Home Medications Medication Instructions Recorded Confirmed Type Ferrous Sulfate [Iron (65 MG 325 mg PO DAILY@0800 07/23/14 05/10/19 History Elemental)] Cyanocobalamin [Vitamin B-12] 250 mcg PO DAILY@0800 10/18/15 05/10/19 History Hyoscyamine Sulfate [Levsin-Sl] 0.125 mg PO DAILY@0800 10/18/15 05/10/19 History Levothyroxine Sodium [Synthroid] 50 mcg PO DAILY@00 10/18/15 05/10/19 History Acetaminophen [Tylenol] 500 - 1,000 mg PO Q6H PRN 05/01/17 05/10/19 History Albuterol Inhaler [Ventolin Hfa 2 puff INHALATION RT-Q6H PRN 05/01/17 05/10/19 History Inhaler] Amiodarone HCl [Pacerone] 200 mg PO DAILY@0800 05/01/17 05/10/19 History Artificial Tears-Hypromellose 1 drops BOTH EYES TID PRN 05/01/17 05/10/19 History [Artificial Tear Drops] Donepezil HCl [Aricept] 5 mg PO DAILY@199905/01/17 05/10/19 History Famotidine 40 mg PO DAILY@0800 05/01/17 05/10/19 History PHENobarbital [Luminal] 48.6 mg PO DAILY@0800 05/01/17 05/10/19 History clonazePAM [KlonoPIN] 0.25 mg PO HS@199905/01/17 05/10/19 History Atorvastatin [Lipitor] 40 mg PO HS@199905/20/18 05/10/19 History Loperamide [Imodium] 2 mg PO Q6H PRN 05/20/18 05/10/19 History Phenytoin Sodium Extended 100 mg PO BID 05/20/18 05/10/19 History [Dilantin] levETIRAcetam [Keppra] 1,000 mg PO DAILY@0800 05/20/18 05/10/19 History levETIRAcetam [Keppra] 750 mg PO HS@199905/20/18 05/10/19 History Metoprolol Tartrate [Lopressor] 12.5 mg PO BID@05/10/19 05/10/19 History Aspirin 81 mg PO DAILY #30 chewable 05/15/19 Rx Cephalexin [Keflex] 250 mg PO QID #12 cap 05/15/19 Rx Allergies Allergy/AdvReac Type Severity Reaction Status Date / Time Penicillins Allergy Unknown Verified 05/10/19 11:44 Physical Examination - Vital Signs Vital Signs: Vital Signs Temp Pulse Resp BP Pulse Ox 05/15/19 08:06 90 L 05/15/19 03:25 98.7 F 94 16 99/52 94 L 05/14/19 23:20 99 F 116 H 18 118/56 96 05/14/19 20:00 99.5 F 99 18 96/52 92 L 05/14/19 16:00 130 H 101/59 92 L 05/14/19 12:00 80 99/55 Intake and Output 05/14/19 05/15/19 05/15/19 22:59 06:59 14:59 Intake Total 1100 250 Output Total 450 850 Balance 650 -600 Intake: Intake, IV Titration 1100 250 Amount Amiodarone 300 mg In 250 Dextrose 5% in Water 250 ml @ 0.5 MG/MIN 25 mls/hr IV .Q10H [facility] Rx#: [id number] Dextrose 5%-0.45% NaCl 1, 1000 000 ml @ 125 mls/hr IV . Q8H [facility] Rx#:[id number] levETIRAcetam IV 1,000 mg 100 In Saline 1 100ml.bag @ 400 mls/hr IVPB DAILY [facility] Rx#:[id number] Output: Urine 450 850 Stool 0 0 Other: Voiding Method Indwelling Catheter Indwelling Catheter Weight 79 kg Results - Laboratory Findings CBC and BMP: 05/12/19 06:15 05/15/19 06:08 Abnormal Lab Findings: Abnormal Labs 05/10/19 05/10/19 05/10/19 13:04 13:04 13:04 WBC 17.4 H RBC Hgb Hct MCV 107.8 H MCHC 30.9 L Neutrophils # 14.4 H Macrocytosis APTT 21.1 L Sodium 168 H* Potassium Chloride 135 H* Carbon Dioxide BUN 64 H Creatinine 2.06 H Glucose 133 H Plasma Lactic Acid [place] Calcium Magnesium AST 66 H Creatine Kinase 486 H Albumin TSH 0.448 L Urine Protein Urine Blood Ur Leukocyte Esterase Urine WBC Urine WBC Clumps Urine Bacteria Urine Mucus Ur Barbiturates Screen Phenobarbital 05/10/19 05/10/19 05/10/19 13:04 13:04 13:20 WBC RBC Hgb Hct MCV MCHC Neutrophils # Macrocytosis APTT Sodium Potassium Chloride Carbon Dioxide BUN Creatinine Glucose Plasma Lactic Acid [place] 2.5 H* Calcium Magnesium AST Creatine Kinase Albumin TSH Urine Protein 1+ H Urine Blood Trace H Ur Leukocyte Esterase Large H Urine WBC >182 H Urine WBC Clumps Few H Urine Bacteria Many H Urine Mucus Many H Ur Barbiturates Screen Detected H Phenobarbital 14.8 L 05/10/19 05/11/19 05/11/19 17:17 06:11 06:11 WBC 13.5 H RBC 3.59 L Hgb 11.6 L D Hct 37.7 L MCV 104.9 H MCHC 30.9 L Neutrophils # 10.3 H Macrocytosis APTT Sodium 167 H* Potassium Chloride 137 H* Carbon Dioxide BUN 53 H Creatinine 1.53 H Glucose Plasma Lactic Acid Bart[place]ome 2.6 H* Calcium 7.7 L Magnesium AST 70 H Creatine Kinase Albumin 3.0 L TSH Urine Protein Urine Blood Ur Leukocyte Esterase Urine WBC Urine WBC Clumps Urine Bacteria Urine Mucus Ur Barbiturates Screen Phenobarbital 05/12/19 05/12/19 05/13/19 06:15 06:15 06:39 WBC RBC 3.15 L Hgb 10.3 L Hct 34.5 L MCV 109.3 H MCHC 30.0 L Neutrophils # Macrocytosis Marked A APTT Sodium 160 H 155 H Potassium Chloride 134 H* 130 H Carbon Dioxide 21 L 19 L BUN 30 H Creatinine Glucose 140 H Plasma Lactic Acid [place] Calcium 7.1 L 7.5 L Magnesium AST Creatine Kinase Albumin TSH Urine Protein Urine Blood Ur Leukocyte Esterase Urine WBC Urine WBC Clumps Urine Bacteria Urine Mucus Ur Barbiturates Screen Phenobarbital 05/13/19 05/14/19 05/15/19 06:39 06:07 06:08 WBC RBC Hgb Hct MCV MCHC Neutrophils # Macrocytosis APTT Sodium 149 H Potassium 3.2 L 3.1 L Chloride 121 H 116 H Carbon Dioxide 21 L BUN Creatinine Glucose 135 H 136 H Plasma Lactic Acid Bart[place]ome Calcium 7.6 L 7.3 L Magnesium 2.5 H AST Creatine Kinase Albumin TSH Urine Protein Urine Blood Ur Leukocyte Esterase Urine WBC Urine WBC Clumps Urine Bacteria Urine Mucus Ur Barbiturates Screen Phenobarbital
--- NOTE | 2019-05-15 14:22 | CT ---
EXAMINATION TYPE: CT brain wo con DATE OF EXAM: 05/15/2019 COMPARISON: 05/14/2019, 05/10/2019, 05/27/2017 HISTORY: Altered mental status. CT DLP: 1243.4 mGycm Automated exposure control for dose reduction was used. FINDINGS: Exam is markedly limited due to artifact. Assessment the frontal lobes is nondiagnostic due to artifa ct. Could not exclude hemorrhage or ischemia in these regions. Remaining portion of the brain demonstrates moderate to extensive generalized degenerative change wit h low-attenuation the white matter which is nonspecific but most typical remote microvascular ischemi a. Focal area of low attenuation in the anterior limb of the internal capsule on the right is most ty pical of remote lacunar infarct. Intracranial atherosclerotic changes are seen and there are extensiv e changes of sinusitis. Calvarium is intact. Changes of right-sided mastoiditis incidentally noted. H ypertrophic change of the cervical spine noted. Degenerative disc disease noted IMPRESSION: 1. Markedly Limited exam with nondiagnostic assessment of the frontal lobes. 2. Remaining portion of the brain demonstrates no evidence of acute hemorrhage or mass effect. Degene rative and nonspecific changes most typical remote ischemia noted. Given the limitation exam recommen d follow-up MRI, particularly if there is concern for acute ischemia. 3. Correlate for chronic sinusitis and right-sided mastoiditis.
[2019-05-15] MEDS: METOPROLOL TARTRATE 12.5 MG TAB PO SCH (15:44)
[2019-05-15] MEDS: FAMOTIDINE 20 MG TAB PO SCH (15:44)
[2019-05-15] MEDS: CEPHALEXIN 250 MG CAP PO SCH ×2 (15:44→15:46)
[2019-05-15] MEDS: levETIRAcetam IV 1,000 MG in SALINE 1 100ML.BAG IVPB SCH (15:45)
[2019-05-15] MEDS: PHENYTOIN SODIUM EXTENDED 100 MG CAP PO SCH (15:45)
[2019-05-15 15:48] VITALS: BP 95/56; PULSE 97
--- NOTE | 2019-05-15 18:16 | P.DS ---
Providers Date of admission: 05/10/19 14:54 Expected date of discharge: 05/15/19 Attending physician: Daron Carrington Consults: 05/13/19 10:00 Consult Physician Routine Consulting Provider: Saud Yepez Consult Reason/Comments: tachyarrythmia Do you want consulting provider notified?: Yes 05/14/19 15:03 Consult Physician Routine Consulting Provider: Onelia Ray Consult Reason/Comments: cva Do you want consulting provider notified?: Yes Primary care physician: Hansel Chua [facility] Course: Chief Complaint: Weak History of presenting complaint: This is a 83-year-old patient of R visiting physician Dr. Chua. Chronic stable medical conditions include developmental delay but dementia, very hard of hearing, seizure disorder, hypothyroid, atrial fibrillation, congestive heart failure. Patient lives at [facility]. Patient unable to give any history. Only makes sounds. Patient was brought in by the staff as patient is not eating drinking. Very lethargic. This has been going on for close to one week. Patient oral intake is also gone down. Patient's can't ever infected appearing urine with elevated white count. Also found to have a sodium 168 and a creatinine of 2.06. Admitted for the same. Admitted with-acute UTI with cystitis asepsis, severe hypernatremia, toxic metabolic encephalopathy, lactic acidosis. On May 13 patient went to A. fib with rapid ventricle rate then reverted back to sinus rhythm. Was put on IV amiodarone. Yesterday patient was still lethargic. Computed tomography scan did confirm a stroke in the frontal lobe. Bleeding was held with patient's sister and [id number]. Sister being the POA. Decision was made to have the patient discharged with hospice. As his quality of life is not good. Patient is a bit more responsive this morning. Talking few words. Mechanical soft diet was allowed. Discussion with case management social worker. Discussion and discharge planning more than 35 minutes Consultation: Dr. Ray from neurology Physical examination: VITAL SIGNS: 97.4, 92, 16, blood pressure 1 or 2.58, 82% room air GENERAL: Laying in bed, speaking a few words today EYES: Pupils equal. Conjunctiva normal. HEENT: [External appearance of nose and ears normal, oral cavity dry, baseline very hard of hearing NECK: JVD unable to assess; masses not palpable. HEART: First and second heart sounds are normal; no edema. LUNGS: Respiratory rate normal; clear to auscultation. ABDOMEN: Soft, nontender, liver spleen not palpable, no masses palpable. PSYCH: Unable to assess NEUROLOGICAL: Cranial nerves grossly intact; no facial asymmetry, unable to assess further. INVESTIGATIONS, reviewed in the clinical context: Percussion 3.1 creatinine 0.78 Computed tomography scan brain-evolving right frontal lobe stroke/subacute Previous testing White count 7.4 hemoglobin 15 sodium was 168 chloride 135 bun 64 creatinine 2.06 patient's colostomy and creatinine was 8/0.55 in 2018 May UA positive for leukoesterase WBC Urine tox screen positive for barbiturates lactic acid 2.6 Assessment: -Acute UTI from cystitis causing sepsis, with urine culture being negative, POA -Severe hypernatraemia from dehydration, improved POA -Severe hyperchloremia, improved, POA -Acute renal failure likely prerenal, POA -Acute stroke in the right frontal lobe, onset cannot be determined -Toxic metabolic encephalopathy from sepsis -Lactic acidosis from above -Developmental delay with advanced dementia -Very hard of hearing -Chronic seizure disorder -Hypothyroid -Persistent atrial fibrillation -Chronic congestive heart failure from systolic dysfunction EF 40-45% -Concerned about aspiration because of altered mental status being followed by speech therapist. -New onset paroxysmal atrial fibrillation with rapid ventricular rate now back in sinus rhythm Disposition: [facility] works with hospice. [facility] hospice. Patient Condition at Discharge: Poor Plan - Discharge Summary New Discharge Prescriptions: New Aspirin 81 mg PO DAILY #30 chewable Cephalexin [Keflex] 250 mg PO QID #12 cap Continue Ferrous Sulfate [Iron (65 MG Elemental)] 325 mg PO DAILY@0800 Cyanocobalamin [Vitamin B-12] 250 mcg PO DAILY@0800 Levothyroxine Sodium [Synthroid] 50 mcg PO DAILY@0800 Hyoscyamine Sulfate [Levsin-Sl] 0.125 mg PO DAILY@0800 Acetaminophen [Tylenol] 500 - 1,000 mg PO Q6H PRN PRN Reason: Pain Or Fever > 100.5 Artificial Tears-Hypromellose [Artificial Tear Drops] 1 drops BOTH EYES TID PRN PRN Reason: DRY EYES PHENobarbital [Luminal] 48.6 mg PO DAILY@0800 Famotidine 40 mg PO DAILY@0800 Donepezil HCl [Aricept] 5 mg PO DAILY@1999 clonazePAM [KlonoPIN] 0.25 mg PO HS@1999 Amiodarone HCl [Pacerone] 200 mg PO DAILY@0800 Albuterol Inhaler [Ventolin Hfa Inhaler] 2 puff INHALATION RT-Q6H PRN PRN Reason: Shortness Of Breath Or Wheezing Atorvastatin [Lipitor] 40 mg PO HS@1999 levETIRAcetam [Keppra] 750 mg PO HS@1999 levETIRAcetam [Keppra] 1,000 mg PO DAILY@0800 Loperamide [Imodium] 2 mg PO Q6H PRN PRN Reason: Loose Stool Phenytoin Sodium Extended [Dilantin] 100 mg PO BID Metoprolol Tartrate [Lopressor] 12.5 mg PO BID@08,1999 Discontinued Furosemide [Lasix] 20 mg PO DAILY@0800 Cholecalciferol [Vitamin D3 (25 Mcg = 1000 Iu)] 1,000 unit PO DAILY@0800 Acetaminophen Tab [Tylenol] 500 mg PO TID@0800,1400,1999 Potassium Chloride ER [K-Dur 10] 10 mg PO DAILY@0800 guaiFENesin [Mucinex] 600 mg PO BID PRN PRN Reason: Congestion guaiFENesin-DM 100-10MG/5ML [Robitussin DM] 10 - 20 ml PO Q4H PRN PRN Reason: Cough Magnesium Hydroxide [Milk of Magnesia] 2,400 mg PO BID PRN PRN Reason: Constipation Oyster Calcium 500 mg PO DAILY@0800 Ibuprofen [Motrin Ib] 200 mg PO Q4H PRN PRN Reason: Pain S[employer] Senior Tab 1 tab PO DAILY@0800 Discharge Medication List Ferrous Sulfate [Iron (65 MG Elemental)] 325 mg PO DAILY@0800 07/23/14 [History] Cyanocobalamin [Vitamin B-12] 250 mcg PO DAILY@0810/18/15 [History] Hyoscyamine Sulfate [Levsin-Sl] 0.125 mg PO DAILY@0800 10/18/15 [History] Levothyroxine Sodium [Synthroid] 50 mcg PO DAILY@0800 10/18/15 [History] Acetaminophen [Tylenol] 500 - 1,000 mg PO Q6H PRN 05/01/17 [History] Albuterol Inhaler [Ventolin Hfa Inhaler] 2 puff INHALATION RT-Q6H PRN 05/01/17 [History] Amiodarone HCl [Pacerone] 200 mg PO DAILY@79905/01/17 [History] Artificial Tears-Hypromellose [Artificial Tear Drops] 1 drops BOTH EYES TID PRN 05/01/17 [History] Donepezil HCl [Aricept] 5 mg PO DAILY@199905/01/17 [History] Famotidine 40 mg PO DAILY@79905/01/17 [History] PHENobarbital [Luminal] 48.6 mg PO DAILY@79905/01/17 [History] clonazePAM [KlonoPIN] 0.25 mg PO HS@199905/01/17 [History] Atorvastatin [Lipitor] 40 mg PO HS@199905/20/18 [History] Loperamide [Imodium] 2 mg PO Q6H PRN 05/20/18 [History] Phenytoin Sodium Extended [Dilantin] 100 mg PO BID 05/20/18 [History] levETIRAcetam [Keppra] 1,000 mg PO DAILY@79905/20/18 [History] levETIRAcetam [Keppra] 750 mg PO HS@199905/20/18 [History] Metoprolol Tartrate [Lopressor] 12.5 mg PO BID@799,199905/10/19 [History] Aspirin 81 mg PO DAILY #30 chewable 05/15/19 [Rx] Cephalexin [Keflex] 250 mg PO QID #12 cap 05/15/19 [Rx] Follow up Appointment(s)/Referral(s): Hansel Chua MD [Primary Care Provider] - 1-2 days Activity/Diet/Wound Care/Special Instructions: Diet: Dysphagia Level 3: chopeed diet; [place] thick liquids via spoon 1ml at a time only; 1:1 supervision; aspiration precautions Discharge Disposition: DISCH TO HOSPICE MED FACILTY
--- NOTE | 2019-05-15 23:06 | EEG ---
ELECTROENCEPHALOGRAM REPORT PROCEDURE DATE: 05/15/2019. ELECTROENCEPHALOGRAM (EEG) REPORT: TECHNIQUE: A routine 18 channel EEG was performed with video using the 10/20 international electrode placement system. HISTORY: Patient was brought in from an assisted living facility for increased lethargy, decreased p.o. intake. Other diagnoses includes urinary tract infection, dementia, seizure disorder, congestive heart failure. CURRENT MEDICATIONS: Keppra, Luminal, Dilantin, Synthroid, Lopressor, Aricept. STUDY DURATION: 24 minutes. FINDINGS: BACKGROUND: The background activity consisted of unsustained 4-5 Hz rhythmic waveforms symmetric through both posterior quadrants. ACTIVATION: Hyperventilation: Not performed. Photic stimulation: No driving seen. Sleep: Drowsy. Occasional stage II sleep noted. ABNORMALITIES: 1. Occasional moderate voltage frontally predominant triphasic waves were seen. 2. Diffuse synchronous and asynchronous 3 to 5 hertz slow wave activity was seen. 3. 4. IMPRESSION: Abnormal EEG. The triphasic waves mentioned above are not epileptiform in nature. Triphasic waves can be seen in the setting of a metabolic encephalopathy. The diffuse synchronous and asynchronous theta delta range slowing mentioned above is not epileptiform in nature. In combination with the slow background, these findings indicate moderate diffuse cerebral dysfunction as may be seen in a toxometabolic encephalopathy. No seizures were recorded. No epileptiform activity was present. MMODL / IJN: [id number] /
--- NOTE | 2019-05-20 08:16 | ECHOF ---
Referral Reason:afib MEASUREMENTS -------- HEIGHT: 165.1 cm WEIGHT: 73.5 kg BP: RVIDd: 2.2 cm (< 3.3) IVSd: 1.3 cm (0.6 - 1.1) LVIDd: 3.7 cm (3.9 - 5.3) LVPWd: 1.0 cm (0.6 - 1.1) IVSs: 1.4 cm LVIDs: 2.9 cm LVPWs: 1.4 cm Ao Diam: 3.7 cm (2.0 - 3.7) MV E Humberto: 0.63 m/s MV DecT: 203 ms MV A Humberto: 0.01 m/s MV E/A Ratio: 44.54 RAP: 5.00 mmHg RVSP: 25.60 mmHg FINDINGS -------- Undetermined rhythm. Resting tachycardia (HR>100bpm). Pt. not compliant. The left ventricular size is normal. There is mild concentric left ventricular hypertrophy. Overa ll left ventricular systolic function is low-normal with, an EF between 50 - 55 %. The right ventricle is normal in size. The left atrial size is normal. The right atrial size is normal. There is mild aortic valve sclerosis. There is no evidence of aortic regurgitation. Mild mitral annular calcification present. Mild mitral regurgitation is present. Mild tricuspid regurgitation present. Right ventricular systolic pressure is normal at < 35 mmHg. There is no evidence of pulmonary hypertension. The pulmonic valve was not well visualized. The aortic root size is normal. Echo free space represents a pericardial fat pad. CONCLUSIONS -------- 1. Undetermined rhythm. 2. Resting tachycardia (HR>100bpm). 3. Pt. not compliant. 4. The left ventricular size is normal. 5. There is mild concentric left ventricular hypertrophy. 6. Overall left ventricular systolic function is low-normal with, an EF between 50 - 55 %. 7. The right ventricle is normal in size. 8. The left atrial size is normal. 9. The right atrial size is normal. 10. There is mild aortic valve sclerosis. 11. Mild mitral annular calcification present. 12. Mild mitral regurgitation is present. 13. Mild tricuspid regurgitation present. 14. Right ventricular systolic pressure is normal at < 35 mmHg. 15. There is no evidence of pulmonary hypertension. 16. The pulmonic valve was not well visualized. 17. The aortic root size is normal. 18. Echo free space represents a pericardial fat pad. FLOOR DIRECTOR: Leila Nash RDCS
--- NOTE | 2019-05-20 08:32 | CDI ---
Documentation Clarification Form Date: 05/20/19 From: Shruti Beverly Phone: If you have a question about this query, please contact Karime Adame, Plumbing And Heating Mechanic at [phone] between 8am and 5pm. Admit Date: 05/10/19 Discharge Date: 05/15/19 Patient Name: [id number] Visit Number: Froylan Mcclelland ATTENTION: The Clinical Documentation Specialists (CDI) and [facility] Coding Staff appreciate your assistance in clarifying documentation. Please respond to the clarification below the line at the bottom and electronically sign. The CDI & [facility] Coding staff will review the response and follow-up if needed. Please note: Queries are made part of the Legal Health Record. If you have any questions, please contact the author of this message via ITS. Dear Dr. Daron Carrington, A superficial pressure ulcer over left hip and right sacral ulcer, stage 1-2 with mild erythema were documented in the ED Note. History/Risk Factors: sepsis w severe sepsis, toxic metabolic encephalopathy, cerebral infarction, ZA, hypernatremia, HTN w chronic systolic CHF, Alzheimer's, epilepsy Clinical Indicators: Wound assessment- Stage II left hip, 4.5 x 5.5 cm, pressure injury coccyx unstageable Treatment: Optifoam & wound care Elements for accurate and compliant documentation of an ulcer: *The location/laterality of the ulcer *Etiology (decubitus/pressure, diabetic, PVD) *Stage I-IV, Unstageable, Suspected Deep Tissue Injury (To the deepest stage) *If the ulcer was present at admission (POA) or occurred after admission In your professional opinion, can you please clarify the diagnosis, location, laterality and whether present on admission (POA): Stage 1 Pressure/Decubitus Ulcer (intact skin, non-blanching redness of local area) Stage 2 Pressure/Decubitus Ulcer (Partial thickness, loss of dermis, pink wound bed) Stage 3 Pressure/Decubitus Ulcer (Full thickness tissue loss) Stage 4 Pressure/Decubitus Ulcer (Full thickness tissue loss with exposed bone, tendon, or muscle. May have slough or eschar present) Unstageable Other condition, please specify Unable to determine Please indicate etiology of pressure ulcer (if known). Stage II pressure/decubitus ulcer over the left hip and right sacral area, POA MTDD
--- NOTE | 2019-05-20 08:45 | CDI ---
Documentation Clarification Form Date: 05/20/19 From: Shruti Beverly Phone: If you have a question about this query, please contact Karime Adame, Legal Word Processor at [phone] between 8am and 5pm. Admit Date: 05/10/19 Discharge Date: 05/15/19 Patient Name: Froylan Mcclelland Visit Number: [id number] ATTENTION: The Clinical Documentation Specialists (CDI) and [facility] Coding Staff appreciate your assistance in clarifying documentation. Please respond to the clarification below the line at the bottom and electronically sign. The CDI & [facility] Coding staff will review the response and follow-up if needed. Please note: Queries are made part of the Legal Health Record. If you have any questions, please contact the author of this message via ITS. Dear Dr. Daron Carrington, Conflicting documentation has been found in the medical record: Per DS you state persistent atrial fibrillation and new paroxysmal atrial fibrillation. Per Cardiology consult - paroxysmal atrial fibrillation. Per cardiology 05/15 PN- persistent atrial fibrillation History/Risk Factors: sepsis w severe sepsis, toxic metabolic encephalopathy, cerebral infarction, ZA, hypernatremia, HTN w chronic systolic CHF, Alzheimer's, epilepsy Clinical Indicators: initial EKG shows normal sinus rhythm, subsequent EKG shows atrial fibrillation with rapid ventricular response. Treatment: No anticoagulant therapy due to hx of significant hematuria. In your opinion, what is the most clinically appropriate diagnosis for this patient? Paroxysmal atrial fibrillation Persistent atrial fibrillation Other explanation of clinical findings Unable to determine (no explanation for clinical findings) Please see discharge summary---documented MTDD
== END 2019-05-15 15:43 | disposition hospice, home (50) | DRG 871 ==
LOC: EC 10:30 → 3SCARD 14:54
PROVIDERS: ADMIT Hospitalist; ATTEND Hospitalist
DX: A41.9 Sepsis, unspecified organism (principal); G92 Toxic encephalopathy; I63.9 Cerebral infarction, unspecified; R40.2224 Coma scale, best verbal response, incomprehensible words, 24 hours or more after hospital admission; N17.9 Acute kidney failure, unspecified; E87.0 Hyperosmolality and hypernatremia; E87.2 Acidosis; I50.22 Chronic systolic (congestive) heart failure; N30.00 Acute cystitis without hematuria; I48.19 Other persistent atrial fibrillation; R65.20 Severe sepsis without septic shock; L89.222 Pressure ulcer of left hip, stage 2; L89.152 Pressure ulcer of sacral region, stage 2; E87.8 Other disorders of electrolyte and fluid balance, not elsewhere classified; E86.0 Dehydration; I11.0 Hypertensive heart disease with heart failure; G30.9 Alzheimer's disease, unspecified; F02.80 Dementia in other diseases classified elsewhere, unspecified severity, without behavioral disturbance, psychotic disturbance, mood disturbance, and anxiety; G40.909 Epilepsy, unspecified, not intractable, without status epilepticus; D64.9 Anemia, unspecified; R47.81 Slurred speech; R40.2142 Coma scale, eyes open, spontaneous, at arrival to emergency department; R40.2362 Coma scale, best motor response, obeys commands, at arrival to emergency department; R40.2252 Coma scale, best verbal response, oriented, at arrival to emergency department; R40.2134 Coma scale, eyes open, to sound, 24 hours or more after hospital admission; R40.2354 Coma scale, best motor response, localizes pain, 24 hours or more after hospital admission; E03.9 Hypothyroidism, unspecified; E78.5 Hyperlipidemia, unspecified; N32.9 Bladder disorder, unspecified; K21.9 Gastro-esophageal reflux disease without esophagitis; F89 Unspecified disorder of psychological development; H91.90 Unspecified hearing loss, unspecified ear; Z79.890 Hormone replacement therapy; Z79.899 Other long term (current) drug therapy; Z87.01 Personal history of pneumonia (recurrent); Z97.4 Presence of external hearing-aid; Z86.14 Personal history of Methicillin resistant Staphylococcus aureus infection; Z91.81 History of falling; Z87.81 Personal history of (healed) traumatic fracture; Z98.890 Other specified postprocedural states; Z88.0 Allergy status to penicillin
CPT/HCPCS: 36415; 70450; 71046; 80048; 80053; 80184; 80185; 80306; 81001; 82140; 82550; 83605; 83690; 83735; 84443; 84484; 85025; 85027; 85610; 85730; 87040; 87086; 93005; 93306; 94760; 95819; 96361; 96365; 99285